=== PATIENT | female | born 1995 | race Hispanic/Latino ===

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

== ENCOUNTER 2017-05-28 07:36 | Emergency (ER) | payer MEDICAID, OTHER, SELFPAY ==
[~2017-05-28] VITALS: Ht 157.5 cm; Wt 74.2 kg
[~2017-05-28 07:36] MED LIST changes: -ACYC1CAP8 PO; +ACYC200C8 PO; +CLIN150C14 PO; -CLIN1CAP5 PO; -COLA100C3 PO; +COLA100C5 PO; +IBUP-1022 PO; -IBUP600T26 PO; -MACR100C3 PO; +MACR100C43 PO; -PERC10TA17 PO; +PERC10TA26 PO; +PREN200C PO; -PREN200C2 PO; -VALA500T PO; +VALA500T2 PO
[2017-05-28] MEDS ORDERED: PERCOCET 5MG/325MG TAB PO ONE (08:15)
[2017-05-28 08:55] LABS: MUCUS, URINE RFX SMALL (NEGATIVE); SPECIFIC GRAVITY UR AUTO RFX 1.026 (1.002-1.035); SQUAM EPITHELIAL CELL UR AURFX 11 /HPF (0-6)
[2017-05-28] MEDS ORDERED: FLAG500T PO (09:51)
[2017-05-28] MEDS ORDERED: VALA1TAB2 PO (09:51)
[2017-05-28] MEDS ORDERED: DICL75TA PO (09:52)
[2017-05-28 10:30] VITALS: BP 118/61
== END 2017-05-28 10:31 | disposition home or self-care (01) ==
LOC: M ED 07:36
DX: A60.04 Herpesviral vulvovaginitis (principal); A60.03 Herpesviral cervicitis; N76.0 Acute vaginitis; Z72.0 Tobacco use; F12.10 Cannabis abuse, uncomplicated

== ENCOUNTER 2017-05-30 16:06 | Emergency (ER) | payer MEDICAID ==
[~2017-05-30] VITALS: Ht 157.5 cm; Wt 73.7 kg
[~2017-05-30 16:06] MED LIST changes: +DICL75TA PO; +FLAG500T PO; +VALA1TAB2 PO
[2017-05-30 16:07] VITALS: BP 123/78
[2017-05-30] MEDS ORDERED: PRENTAB16 PO (16:16)
== END 2017-05-30 16:37 | disposition left against medical advice (07) ==
LOC: M ED 16:06
DX: Z53.29 Procedure and treatment not carried out because of patient's decision for other reasons (principal)

== ENCOUNTER 2017-06-14 14:21 | Emergency (ER) | payer MEDICAID ==
[~2017-06-14] VITALS: Ht 157.5 cm; Wt 73.0 kg
[~2017-06-14 14:21] MED LIST changes: +PRENTAB16 PO
[2017-06-14 14:22] VITALS: BP 114/69
== END 2017-06-14 15:24 | disposition left against medical advice (07) ==
LOC: M ED 14:21
DX: Z53.21 Procedure and treatment not carried out due to patient leaving prior to being seen by health care provider (principal)

== ENCOUNTER 2017-07-10 16:17 | Emergency (ER) | payer MEDICAID ==
[2017-07-10] MEDS: METOCLOPRAMIDE 10 MG TAB PO (17:05)
[2017-07-10 17:42] LABS: HEMOGLOBIN 13.1 g/dl (12.0-16.0); MEAN CORPUSCULAR HEMOGLOBIN 31.4 pg (27.0-33.0); MEAN CORPUSCULAR HGB CONC 33.6 g/dl (32.0-36.5); MEAN CORPUSCULAR VOLUME 93.5 fl (80.0-96.0); PLATELET COUNT, AUTOMATED 248 10^3/uL (150-450); RED BLOOD COUNT 4.17 10^6/uL (4.00-5.40); RED CELL DISTRIBUTION WIDTH 12.1 % (11.5-14.5); WHITE BLOOD COUNT 7.2 10^3/uL (4.0-10.0)
[2017-07-10 17:49] LABS: KETONE, URINE AUTO RFX NEGATIVE (NEGATIVE); LEUKOCYTE ESTERASE UR AUTO RFX NEGATIVE (NEGATIVE); NITRITE, URINE AUTO RFX NEGATIVE (NEGATIVE); RBC, URINE AUTO RFX 2 /HPF (0-3); SPECIFIC GRAVITY UR AUTO RFX 1.015 (1.002-1.035); SQUAM EPITHELIAL CELL UR AURFX 5 /HPF (0-6); WBC, URINE AUTO RFX 1 /HPF (0-3)
[2017-07-10 18:06] LABS: ANION GAP 7 MEQ/L (8-16); BLOOD UREA NITROGEN 14 MG/DL (7-18); CALCIUM LEVEL 8.6 MG/DL (8.5-10.1); CARBON DIOXIDE LEVEL 26 MEQ/L (21-32); CHLORIDE LEVEL 107 MEQ/L (98-107); CREATININE FOR GFR 0.74 MG/DL (0.55-1.02); GLUCOSE, FASTING 89 MG/DL (70-100); HCG, SERUM QUANTITATIVE < 1.0 MIU/ML; POTASSIUM SERUM 3.7 MEQ/L (3.5-5.1); SODIUM LEVEL 140 MEQ/L (136-145)
== END 2017-07-10 18:40 | disposition home or self-care (01) ==
LOC: M ED 16:17
DX: R10.9 Unspecified abdominal pain (principal); F17.200 Nicotine dependence, unspecified, uncomplicated
CPT/HCPCS: 84702

== ENCOUNTER 2017-07-11 20:09 | Emergency (ER) | payer MEDICAID ==
[2017-07-11 21:04] LABS: CONTROL LINE HCG INT CTR LINE PRESENT; HCG, SERUM QUALITATIVE NEGATIVE (NEGATIVE)
[2017-07-11 21:08] LABS: AMPHETAMINES LEVEL URINE NEGATIVE (NEGATIVE); BARBITURATES URINE NEGATIVE (NEGATIVE); BENZODIAZEPINES URINE NEGATIVE (NEGATIVE); CANNABINOIDS URINE NEGATIVE (NEGATIVE); COCAINE METABOLITE URINE NEGATIVE (NEGATIVE); HEMOGLOBIN 13.4 g/dl (12.0-16.0); MEAN CORPUSCULAR HEMOGLOBIN 31.2 pg (27.0-33.0); MEAN CORPUSCULAR HGB CONC 33.5 g/dl (32.0-36.5); METHADONE URINE NEGATIVE (NEGATIVE); OPIATES URINE NEGATIVE (NEGATIVE); PHENCYCLIDINE URINE NEGATIVE (NEGATIVE); PLATELET COUNT, AUTOMATED 283 10^3/uL (150-450); RED CELL DISTRIBUTION WIDTH 12.1 % (11.5-14.5); WHITE BLOOD COUNT 11.8 10^3/uL (4.0-10.0)
[2017-07-11 21:20] LABS: ALBUMIN 4.1 GM/DL (3.2-5.2); ALBUMIN/GLOBULIN RATIO 1.37 (1.00-1.93); ALKALINE PHOSPHATASE 74 U/L (45-117); ALT/SGPT 20 U/L (12-78); ANION GAP 6 MEQ/L (8-16); AST/SGOT 12 U/L (7-37); BILIRUBIN,DIRECT 0.2 MG/DL (0.0-0.2); BILIRUBIN,TOTAL 0.8 MG/DL (0.2-1.0); BLOOD UREA NITROGEN 13 MG/DL (7-18); CALCIUM LEVEL 8.4 MG/DL (8.5-10.1); CARBON DIOXIDE LEVEL 26 MEQ/L (21-32); CHLORIDE LEVEL 112 MEQ/L (98-107); CREATININE FOR GFR 0.67 MG/DL (0.55-1.02); ETHYL ALCOHOL (ETHANOL) < 0.003 % (0.000-0.010); GLUCOSE, FASTING 92 MG/DL (70-100); POTASSIUM SERUM 3.9 MEQ/L (3.5-5.1); SALICYLATE LEVEL < 1.7 MG/DL (5.0-30.0); SODIUM LEVEL 144 MEQ/L (136-145); THYROID STIMULATING HORMONE < 0.005 uIU/ML (0.463-3.98); TOTAL PROTEIN 7.1 GM/DL (6.4-8.2)
[2017-07-11 21:21] LABS: ACETAMINOPHEN LEVEL < 2.0 UG/ML (10.0-30.0)
[2017-07-11 22:18] LABS: FREE T3 5.6 PG/ML (2.9-4.5)
[2017-07-12 10:46] LABS: THYROGLOBULIN ANTIBODY < 15.0 U/ML (<60.0)
== END 2017-07-11 23:10 | disposition home or self-care (01) ==
LOC: M ED 20:09
DX: F43.20 Adjustment disorder, unspecified (principal); E05.90 Thyrotoxicosis, unspecified without thyrotoxic crisis or storm; F90.9 Attention-deficit hyperactivity disorder, unspecified type; F31.9 Bipolar disorder, unspecified; F19.10 Other psychoactive substance abuse, uncomplicated; L73.2 Hidradenitis suppurativa; Z91.030 Bee allergy status; Z91.048 Other nonmedicinal substance allergy status; F17.210 Nicotine dependence, cigarettes, uncomplicated
CPT/HCPCS: G0480

== ENCOUNTER 2017-07-14 06:47 | Emergency (ER) | payer MEDICAID ==
[2017-07-14] MEDS: ACETAMINOPHEN 325 MG TAB PO (08:04)
== END 2017-07-14 08:05 | disposition home or self-care (01) ==
LOC: M ED 06:47
DX: J02.9 Acute pharyngitis, unspecified (principal); Z87.891 Personal history of nicotine dependence
CPT/HCPCS: 87880

== ENCOUNTER 2017-07-14 18:30 | Emergency (ER) | payer MEDICAID | END 2017-07-14 19:23 | disposition left against medical advice (07) | LOC: M ED 18:30 | DX: Z53.29 Procedure and treatment not carried out because of patient's decision for other reasons (principal) ==

== ENCOUNTER → 2017-08-01 | Outpatient (CLI) | payer MEDICAID | LOC: M OUTALCOH 12:09 | DX: F11.20 Opioid dependence, uncomplicated (principal); F15.20 Other stimulant dependence, uncomplicated ==

== ENCOUNTER 2017-08-05 19:17 | Emergency (ER) | payer MEDICAID | END 2017-08-05 20:15 | disposition left against medical advice (07) | LOC: M ED 19:17 | DX: N93.9 Abnormal uterine and vaginal bleeding, unspecified (principal); Z91.030 Bee allergy status; Z91.048 Other nonmedicinal substance allergy status | CPT/HCPCS: 99284 ==

== ENCOUNTER 2017-08-13 03:27 | Emergency (ER) | payer MEDICAID ==
[2017-08-13 06:12] LABS: ALBUMIN 3.7 GM/DL (3.2-5.2); ALBUMIN/GLOBULIN RATIO 1.19 (1.00-1.93); ALKALINE PHOSPHATASE 92 U/L (45-117); ALT/SGPT 20 U/L (12-78); ANION GAP 7 MEQ/L (8-16); AST/SGOT 12 U/L (7-37); BILIRUBIN,DIRECT 0.2 MG/DL (0.0-0.2); BILIRUBIN,TOTAL 0.6 MG/DL (0.2-1.0); BLOOD UREA NITROGEN 12 MG/DL (7-18); CALCIUM LEVEL 8.3 MG/DL (8.5-10.1); CARBON DIOXIDE LEVEL 27 MEQ/L (21-32); CHLORIDE LEVEL 109 MEQ/L (98-107); GLUCOSE, FASTING 115 MG/DL (70-100); POTASSIUM SERUM 3.6 MEQ/L (3.5-5.1); SALICYLATE LEVEL < 1.7 MG/DL (5.0-30.0); SODIUM LEVEL 143 MEQ/L (136-145); THYROID STIMULATING HORMONE < 0.005 uIU/ML (0.463-3.98); TOTAL PROTEIN 6.8 GM/DL (6.4-8.2)
[2017-08-13 06:13] LABS: ACETAMINOPHEN LEVEL < 2.0 UG/ML (10.0-30.0); ETHYL ALCOHOL (ETHANOL) < 0.003 % (0.000-0.010)
[2017-08-13] MEDS ORDERED: AUGMENTIN 875 MG TAB As Ordered (06:13)
[2017-08-13 06:14] LABS: AMPHETAMINES LEVEL URINE POSITIVE (NEGATIVE); BARBITURATES URINE NEGATIVE (NEGATIVE); BENZODIAZEPINES URINE NEGATIVE (NEGATIVE); CANNABINOIDS URINE POSITIVE (NEGATIVE); COCAINE METABOLITE URINE NEGATIVE (NEGATIVE); METHADONE URINE NEGATIVE (NEGATIVE); OPIATES URINE NEGATIVE (NEGATIVE); PHENCYCLIDINE URINE NEGATIVE (NEGATIVE)
[2017-08-13 06:16] LABS: HEMATOCRIT 40.4 % (36.0-47.0); HEMOGLOBIN 13.7 g/dl (12.0-16.0); MEAN CORPUSCULAR HEMOGLOBIN 30.2 pg (27.0-33.0); MEAN CORPUSCULAR HGB CONC 33.9 g/dl (32.0-36.5); PLATELET COUNT, AUTOMATED 304 10^3/uL (150-450); RED BLOOD COUNT 4.54 10^6/uL (4.00-5.40); RED CELL DISTRIBUTION WIDTH 11.9 % (11.5-14.5); WHITE BLOOD COUNT 6.1 10^3/uL (4.0-10.0)
[2017-08-13 06:32] LABS: CONTROL LINE HCG INT CTR LINE PRESENT; HCG, SERUM QUALITATIVE NEGATIVE (NEGATIVE)
== END 2017-08-13 07:59 | disposition home or self-care (01) ==
LOC: M ED 03:27
DX: Z04.6 Encounter for general psychiatric examination, requested by authority (principal); F10.929 Alcohol use, unspecified with intoxication, unspecified; S60.221A Contusion of right hand, initial encounter; X58.XXXA Exposure to other specified factors, initial encounter; Y92.89 Other specified places as the place of occurrence of the external cause; L02.413 Cutaneous abscess of right upper limb; F11.90 Opioid use, unspecified, uncomplicated; F19.10 Other psychoactive substance abuse, uncomplicated
CPT/HCPCS: 73130

== ENCOUNTER 2017-08-14 12:14 | Emergency (ER) | payer MEDICAID ==
[2017-08-14 13:20] LABS: BASO % 0.6 % (0.0-1.0); EOS # 0.1 10^3/uL (0.0-0.50); EOS % 2.4 % (0.0-3.0); HEMATOCRIT 41.7 % (36.0-47.0); HEMOGLOBIN 13.7 g/dl (12.0-16.0); IMMATURE GRANULOCYTE % 0.2 % (0-3.0); LYMPH # 2.1 10^3/uL (1.5-6.5); LYMPH % 41.4 % (24.0-44.0); MEAN CORPUSCULAR HGB CONC 32.9 g/dl (32.0-36.5); MEAN CORPUSCULAR VOLUME 91.2 fl (80.0-96.0); MONO # 0.4 10^3/uL (0.0-0.8); MONO % 7.7 % (0.0-5.0); NEUTROPHILS # 2.4 10^3/uL (1.8-7.7); NEUTROPHILS % 47.7 % (36.0-66.0); PLATELET COUNT, AUTOMATED 311 10^3/uL (150-450); RED BLOOD COUNT 4.57 10^6/uL (4.00-5.40); WHITE BLOOD COUNT 5.1 10^3/uL (4.0-10.0)
[2017-08-14 13:30] LABS: CONTROL LINE HCG INT CTR LINE PRESENT; HCG, SERUM QUALITATIVE NEGATIVE (NEGATIVE)
[2017-08-14 13:35] LABS: ALBUMIN 3.7 GM/DL (3.2-5.2); ALBUMIN/GLOBULIN RATIO 1.16 (1.00-1.93); ALKALINE PHOSPHATASE 83 U/L (45-117); ALT/SGPT 25 U/L (12-78); ANION GAP 5 MEQ/L (8-16); AST/SGOT 18 U/L (7-37); BILIRUBIN,TOTAL 0.7 MG/DL (0.2-1.0); BLOOD UREA NITROGEN 7 MG/DL (7-18); C REACTIVE PROTEIN QUANTITATIV < 0.30 MG/DL (0.00-0.30); CALCIUM LEVEL 8.6 MG/DL (8.5-10.1); CARBON DIOXIDE LEVEL 28 MEQ/L (21-32); CHLORIDE LEVEL 110 MEQ/L (98-107); CREATININE FOR GFR 0.57 MG/DL (0.55-1.30); GLUCOSE, FASTING 80 MG/DL (70-100); POTASSIUM SERUM 3.8 MEQ/L (3.5-5.1); SODIUM LEVEL 143 MEQ/L (136-145); TOTAL PROTEIN 6.9 GM/DL (6.4-8.2)
[2017-08-14 14:03] LABS: ERYTHROCYTE SEDIMENTATION RATE 10 mm/hr (0-20)
== END 2017-08-14 14:43 | disposition home or self-care (01) ==
LOC: M ED 12:14
DX: L03.90 Cellulitis, unspecified (principal); J45.909 Unspecified asthma, uncomplicated; Z79.899 Other long term (current) drug therapy; Z91.030 Bee allergy status; Z91.048 Other nonmedicinal substance allergy status
CPT/HCPCS: 76882

== ENCOUNTER 2017-08-23 00:48 | Emergency (ER) | payer MEDICAID ==
[2017-08-23] MEDS: predniSONE 20 MG TAB PO (02:39)
== END 2017-08-23 03:26 | disposition home or self-care (01) ==
LOC: M ED 00:48
DX: L27.0 Generalized skin eruption due to drugs and medicaments taken internally (principal); T36.8X5A Adverse effect of other systemic antibiotics, initial encounter; F17.200 Nicotine dependence, unspecified, uncomplicated; F12.10 Cannabis abuse, uncomplicated; F11.10 Opioid abuse, uncomplicated; Z91.048 Other nonmedicinal substance allergy status; Z91.030 Bee allergy status; Z79.899 Other long term (current) drug therapy
CPT/HCPCS: 99284

== ENCOUNTER 2017-08-23 13:15 | Emergency (ER) | payer MEDICAID ==
[2017-08-23] MEDS ORDERED: methylPREDNISolone INJ 40 MG/1 ML VIAL (J2920) As Ordered (16:07)
[2017-08-23] MEDS: methylPREDNISolone INJ 40 MG/1 ML VIAL (J2920) IV (16:15)
[2017-08-23] MEDS: FAMOTIDINE 20 MG TAB PO (16:15)
[2017-08-23] MEDS ORDERED: methylPREDNISolone INJ 125 MG/2 ML VIAL (J2930) IV (16:15)
== END 2017-08-23 16:39 | disposition home or self-care (01) ==
LOC: M ED 13:15
DX: R21 Rash and other nonspecific skin eruption (principal); T37.0X5A Adverse effect of sulfonamides, initial encounter; L03.90 Cellulitis, unspecified; J45.909 Unspecified asthma, uncomplicated; N73.9 Female pelvic inflammatory disease, unspecified; F17.210 Nicotine dependence, cigarettes, uncomplicated; Z79.899 Other long term (current) drug therapy; Z88.1 Allergy status to other antibiotic agents; Z88.2 Allergy status to sulfonamides; Z91.048 Other nonmedicinal substance allergy status; Z91.030 Bee allergy status; Z98.890 Other specified postprocedural states
CPT/HCPCS: J2920

== ENCOUNTER 2017-08-28 16:44 | Emergency (ER) | payer MEDICAID | END 2017-08-28 17:59 | disposition left against medical advice (07) | LOC: M ED 16:44 | DX: T76.11XA Adult physical abuse, suspected, initial encounter (principal); Y92.099 Unspecified place in other non-institutional residence as the place of occurrence of the external cause; Y93.9 Activity, unspecified; R56.9 Unspecified convulsions; Z87.820 Personal history of traumatic brain injury; Z86.711 Personal history of pulmonary embolism; Z87.440 Personal history of urinary (tract) infections; F41.9 Anxiety disorder, unspecified; F32.9 Major depressive disorder, single episode, unspecified; F43.10 Post-traumatic stress disorder, unspecified; F19.10 Other psychoactive substance abuse, uncomplicated; Z79.899 Other long term (current) drug therapy; Z91.030 Bee allergy status; Z88.2 Allergy status to sulfonamides; Z91.89 Other specified personal risk factors, not elsewhere classified; Z53.21 Procedure and treatment not carried out due to patient leaving prior to being seen by health care provider | CPT/HCPCS: 99284 ==

== ENCOUNTER 2017-09-04 21:22 | Inpatient (IN) | payer MEDICAID ==
[2017-09-04] MEDS: NS 1,000 ML IV (21:45)
[2017-09-04] MEDS ORDERED: PROPOFOL 1,000 MG/100 ML VIAL As Ordered (21:49)
[2017-09-04] MEDS: PROPOFOL 200 MG/20 ML VIAL IV (22:02)
[2017-09-04] MEDS: SUCCINYLCHOLINE INJ 200 MG/10 ML VIAL (J0330) IV (22:02)
[2017-09-04] MEDS: PROPOFOL 1,000 MG in APPROPRIATE DILUENT 1 EA IV (22:10)
[2017-09-04] MEDS ORDERED: MIDAZOLAM INJ 5 MG/ML VIAL (J2250) As Ordered (22:11)
[2017-09-04] MEDS: MIDAZOLAM INJ 5 MG/ML VIAL (J2250) IV (22:23)
[2017-09-04] MEDS: MIDAZOLAM INJ 2 MG/2 ML VIAL (J2250) IV (22:30)
[2017-09-04] MEDS: CHARCOAL ACTIVATED LIQUID 25 GM/120 ML BTL PO (22:45)
[2017-09-04] MEDS: MIDAZOLAM HCL 100 MG in D5W 80 ML IV (23:00)
[2017-09-04 23:09] LABS: AMPHETAMINES LEVEL URINE POSITIVE (NEGATIVE); BARBITURATES URINE NEGATIVE (NEGATIVE); BENZODIAZEPINES URINE POSITIVE (NEGATIVE); CANNABINOIDS URINE POSITIVE (NEGATIVE); COCAINE METABOLITE URINE NEGATIVE (NEGATIVE); METHADONE URINE NEGATIVE (NEGATIVE); OPIATES URINE NEGATIVE (NEGATIVE); PHENCYCLIDINE URINE NEGATIVE (NEGATIVE)
[2017-09-04 23:13] LABS: BASO % 0.5 % (0.0-1.0); EOS % 0.5 % (0.0-3.0); HEMATOCRIT 44.8 % (36.0-47.0); HEMOGLOBIN 13.9 g/dl (12.0-16.0); IMMATURE GRANULOCYTE % 0.3 % (0-3.0); LYMPH # 1.2 10^3/uL (1.5-6.5); LYMPH % 15.6 % (24.0-44.0); MEAN CORPUSCULAR HEMOGLOBIN 29.9 pg (27.0-33.0); MEAN CORPUSCULAR VOLUME 96.3 fl (80.0-96.0); MONO # 0.5 10^3/uL (0.0-0.8); MONO % 6.6 % (0.0-5.0); NEUTROPHILS # 5.7 10^3/uL (1.8-7.7); NEUTROPHILS % 76.5 % (36.0-66.0); PLATELET COUNT, AUTOMATED 251 10^3/uL (150-450); RED BLOOD COUNT 4.65 10^6/uL (4.00-5.40); RED CELL DISTRIBUTION WIDTH 12.5 % (11.5-14.5); WHITE BLOOD COUNT 7.4 10^3/uL (4.0-10.0)
[2017-09-04 23:33] LABS: ABG BASE EXCESS -5.2 (-2.0-2.0); ABG HCO3 19.7 MEQ/L (22.0-26.0); ABG PARTIAL PRESSURE CO2 36.5 mmHg (35.0-45.0); ABG PARTIAL PRESSURE O2 159.2 mmHg (75.0-100.0); ABG STANDARD HCO3 20.2 MEQ/L (22.0-26.0); ABG TOTAL CO2 20.8 MEQ/L (22.0-29.0)
[2017-09-04 23:38] LABS: ALBUMIN 3.5 GM/DL (3.2-5.2); ALBUMIN/GLOBULIN RATIO 1.09 (1.00-1.93); ALKALINE PHOSPHATASE 75 U/L (45-117); ALT/SGPT 18 U/L (12-78); ANION GAP 14 MEQ/L (8-16); AST/SGOT 21 U/L (7-37); BILIRUBIN,DIRECT 0.2 MG/DL (0.0-0.2); BILIRUBIN,TOTAL 1.3 MG/DL (0.2-1.0); BLOOD UREA NITROGEN 7 MG/DL (7-18); CALCIUM LEVEL 8.1 MG/DL (8.5-10.1); CARBON DIOXIDE LEVEL 17 MEQ/L (21-32); CHLORIDE LEVEL 111 MEQ/L (98-107); CPK CREATINE PHOSPHOKINASE 162 U/L (26-192); CREATININE FOR GFR 0.55 MG/DL (0.55-1.30); ETHYL ALCOHOL (ETHANOL) < 0.003 % (0.000-0.010); GLUCOSE, FASTING 95 MG/DL (70-100); MB/CK RELATIVE INDEX 1.23 (< OR =4); POTASSIUM SERUM 3.6 MEQ/L (3.5-5.1); SODIUM LEVEL 142 MEQ/L (136-145); TOTAL PROTEIN 6.7 GM/DL (6.4-8.2); TROPONIN I < 0.02 NG/ML (< 0.10)
[2017-09-05] MEDS ORDERED: REFRIGERATOR IV KEYS XX ×2 (02:00→10:30)
[2017-09-05] MEDS: KCL 20MEQ IN D5/0.45NS 1000ML 1,000 ML IV ×3 (02:09→14:00)
[2017-09-05] MEDS: MIDAZOLAM HCL 100 MG in D5W 80 ML IV ×2 (02:58→06:53)
[2017-09-05] MEDS: LevoFLOXacin IV 500 MG in APPROPRIATE DILUENT 1 EA IV (03:19)
[2017-09-05] MEDS: MIDAZOLAM INJ 2 MG/2 ML VIAL (J2250) IV ×5 (03:21→16:00)
[2017-09-05] MEDS: IPRATROPIUM 0.5MG/ALBUTEROL 2.5MG INH SOL UD 3ML (DUONEB)(J7620) NEB ×5 (03:24→20:02)
[2017-09-05] MEDS: HEPARIN SOD (PORCINE) 5000 UNITS/ML VIAL SC ×3 (05:27→21:12)
[2017-09-05 05:28] LABS: BASO % 0.2 % (0.0-1.0); EOS # 0.1 10^3/uL (0.0-0.50); EOS % 0.6 % (0.0-3.0); HEMATOCRIT 38.5 % (36.0-47.0); IMMATURE GRANULOCYTE % 0.4 % (0-3.0); LYMPH # 1.5 10^3/uL (1.5-6.5); LYMPH % 10.5 % (24.0-44.0); MEAN CORPUSCULAR HEMOGLOBIN 30.5 pg (27.0-33.0); MEAN CORPUSCULAR HGB CONC 33.8 g/dl (32.0-36.5); MEAN CORPUSCULAR VOLUME 90.4 fl (80.0-96.0); MONO % 7.3 % (0.0-5.0); NEUTROPHILS # 11.4 10^3/uL (1.8-7.7); PLATELET COUNT, AUTOMATED 281 10^3/uL (150-450); RED BLOOD COUNT 4.26 10^6/uL (4.00-5.40); RED CELL DISTRIBUTION WIDTH 12.6 % (11.5-14.5); WHITE BLOOD COUNT 14.1 10^3/uL (4.0-10.0)
[2017-09-05 05:44] LABS: ALBUMIN 3.3 GM/DL (3.2-5.2); ALBUMIN/GLOBULIN RATIO 0.97 (1.00-1.93); ALKALINE PHOSPHATASE 72 U/L (45-117); ALT/SGPT 15 U/L (12-78); ANION GAP 11 MEQ/L (8-16); AST/SGOT 13 U/L (7-37); BILIRUBIN,TOTAL 1.2 MG/DL (0.2-1.0); BLOOD UREA NITROGEN 5 MG/DL (7-18); CALCIUM LEVEL 7.7 MG/DL (8.5-10.1); CARBON DIOXIDE LEVEL 22 MEQ/L (21-32); CHLORIDE LEVEL 109 MEQ/L (98-107); CHOLESTEROL LEVEL 112 MG/DL (< 200); CPK CREATINE PHOSPHOKINASE 186 U/L (26-192); CREATININE FOR GFR 0.64 MG/DL (0.55-1.30); GLUCOSE, FASTING 147 MG/DL (70-100); LDH LACTATE DEHYDROGENASE 157 U/L (84-246); PHOSPHORUS LEVEL 2.7 MG/DL (2.5-4.9); SODIUM LEVEL 142 MEQ/L (136-145); TOTAL PROTEIN 6.7 GM/DL (6.4-8.2); TRIGLYCERIDES LEVEL 76 MG/DL (<150)
[2017-09-05] MEDS ORDERED: SUCCINYLCHOLINE 100 MG/5 ML SYRINGE (J0330) (05:56)
[2017-09-05] MEDS ORDERED: PROPOFOL 200 MG/20 ML VIAL (05:56)
[2017-09-05] MEDS: KCL 10MEQ/100ML SWI (KRUN) 10 MEQ in APPROPRIATE DILUENT 1 EA IV ×4 (07:44→11:12)
[2017-09-05 08:43] LABS: ABG BASE EXCESS -5.5 (-2.0-2.0); ABG HCO3 18.1 MEQ/L (22.0-26.0); ABG O2 SATURATION 98.4 % (95.0-99.0); ABG PARTIAL PRESSURE CO2 29.9 mmHg (35.0-45.0); ABG PARTIAL PRESSURE O2 113.4 mmHg (75.0-100.0); ABG pH (ARTERIAL) 7.399 UNITS (7.350-7.450)
[2017-09-05] MEDS: NS 1,000 ML IV ×2 (08:45→11:30)
[2017-09-05] MEDS: PANTOPRAZOLE 40MG INJ (PROTONIX) (C9113) IV (10:22)
[2017-09-05] MEDS: MIDAZOLAM HCL 250 MG in D5W 200 ML IV ×2 (10:28→18:13)
[2017-09-05] MEDS: MORPHINE 4 MG/ML 1ML VIAL (J2270) IV ×3 (13:10→22:20)
[2017-09-05] MEDS: CHLORHEXIDINE ORAL RINSE 0.12%/15ML 120ML BOTTLE MT ×2 (13:11→21:12)
[2017-09-05 14:39] LABS: ANION GAP 12 MEQ/L (8-16); BLOOD UREA NITROGEN 4 MG/DL (7-18); CALCIUM LEVEL 7.5 MG/DL (8.5-10.1); CARBON DIOXIDE LEVEL 18 MEQ/L (21-32); CHLORIDE LEVEL 111 MEQ/L (98-107); CREATININE FOR GFR 0.54 MG/DL (0.55-1.30); GLUCOSE, FASTING 130 MG/DL (70-100); POTASSIUM SERUM 4.3 MEQ/L (3.5-5.1); SODIUM LEVEL 141 MEQ/L (136-145)
[2017-09-05] MEDS ORDERED: ACETAMINOPHEN 325 MG/10.15 ML UDC GT (16:15)
[2017-09-05 16:20] LABS: ABG BASE EXCESS -6.5 (-2.0-2.0); ABG HCO3 16.7 MEQ/L (22.0-26.0); ABG O2 SATURATION 98.3 % (95.0-99.0); ABG PARTIAL PRESSURE CO2 26.7 mmHg (35.0-45.0); ABG PARTIAL PRESSURE O2 114.6 mmHg (75.0-100.0); ABG STANDARD HCO3 19.2 MEQ/L (22.0-26.0); ABG TOTAL CO2 17.5 MEQ/L (22.0-29.0); ABG pH (ARTERIAL) 7.413 UNITS (7.350-7.450)
[2017-09-05] MEDS: KCL 20MEQ IN D5W 1000ML 1,000 ML IV (17:53)
[2017-09-06] MEDS: KCL 20MEQ IN D5W 1000ML 1,000 ML IV ×4 (00:25→20:34)
[2017-09-06] MEDS: LevoFLOXacin IV 500 MG in APPROPRIATE DILUENT 1 EA IV (00:26)
[2017-09-06] MEDS: IPRATROPIUM 0.5MG/ALBUTEROL 2.5MG INH SOL UD 3ML (DUONEB)(J7620) NEB ×7 (01:02→23:44)
[2017-09-06] MEDS: MORPHINE 4 MG/ML 1ML VIAL (J2270) IV ×2 (01:55→05:51)
[2017-09-06] MEDS: MIDAZOLAM HCL 250 MG in D5W 200 ML IV (01:58)
[2017-09-06] MEDS: HEPARIN SOD (PORCINE) 5000 UNITS/ML VIAL SC ×3 (05:09→22:16)
[2017-09-06 05:18] LABS: HEMATOCRIT 37.4 % (36.0-47.0); HEMOGLOBIN 12.5 g/dl (12.0-16.0); MEAN CORPUSCULAR HEMOGLOBIN 30.6 pg (27.0-33.0); MEAN CORPUSCULAR HGB CONC 33.4 g/dl (32.0-36.5); MEAN CORPUSCULAR VOLUME 91.7 fl (80.0-96.0); PLATELET COUNT, AUTOMATED 246 10^3/uL (150-450); RED BLOOD COUNT 4.08 10^6/uL (4.00-5.40); RED CELL DISTRIBUTION WIDTH 13.1 % (11.5-14.5); WHITE BLOOD COUNT 8.6 10^3/uL (4.0-10.0)
[2017-09-06 05:19] LABS: BASO % 0.1 % (0.0-1.0); EOS % 0.5 % (0.0-3.0); IMMATURE GRANULOCYTE % 0.3 % (0-3.0); LYMPH # 2.1 10^3/uL (1.5-6.5); LYMPH % 23.8 % (24.0-44.0); MONO # 0.7 10^3/uL (0.0-0.8); MONO % 7.9 % (0.0-5.0); NEUTROPHILS # 5.8 10^3/uL (1.8-7.7); NEUTROPHILS % 67.4 % (36.0-66.0)
[2017-09-06 05:24] LABS: ALBUMIN 2.9 GM/DL (3.2-5.2); ALBUMIN/GLOBULIN RATIO 0.81 (1.00-1.93); ALKALINE PHOSPHATASE 70 U/L (45-117); ALT/SGPT 16 U/L (12-78); ANION GAP 7 MEQ/L (8-16); AST/SGOT 11 U/L (7-37); BILIRUBIN,TOTAL 1.3 MG/DL (0.2-1.0); BLOOD UREA NITROGEN 2 MG/DL (7-18); CALCIUM LEVEL 8.1 MG/DL (8.5-10.1); CARBON DIOXIDE LEVEL 22 MEQ/L (21-32); CHLORIDE LEVEL 110 MEQ/L (98-107); CHOLESTEROL LEVEL 112 MG/DL (< 200); CPK CREATINE PHOSPHOKINASE 76 U/L (26-192); CREATININE FOR GFR 0.51 MG/DL (0.55-1.30); GLUCOSE, FASTING 126 MG/DL (70-100); LDH LACTATE DEHYDROGENASE 159 U/L (84-246); PHOSPHORUS LEVEL 2.4 MG/DL (2.5-4.9); POTASSIUM SERUM 4.1 MEQ/L (3.5-5.1); SODIUM LEVEL 139 MEQ/L (136-145); TOTAL PROTEIN 6.5 GM/DL (6.4-8.2); TRIGLYCERIDES LEVEL 105 MG/DL (<150)
[2017-09-06 06:01] LABS: ABG BASE EXCESS -3.4 (-2.0-2.0); ABG HCO3 18.8 MEQ/L (22.0-26.0); ABG O2 SATURATION 98.5 % (95.0-99.0); ABG PARTIAL PRESSURE CO2 26.1 mmHg (35.0-45.0); ABG PARTIAL PRESSURE O2 110.3 mmHg (75.0-100.0); ABG STANDARD HCO3 21.7 MEQ/L (22.0-26.0); ABG TOTAL CO2 19.6 MEQ/L (22.0-29.0); ABG pH (ARTERIAL) 7.475 UNITS (7.350-7.450)
[2017-09-06] MEDS: CHLORHEXIDINE ORAL RINSE 0.12%/15ML 120ML BOTTLE MT ×2 (08:00→20:34)
[2017-09-06] MEDS: PANTOPRAZOLE 40MG INJ (PROTONIX) (C9113) IV (08:37)
[2017-09-06 14:01] LABS: ABG BASE EXCESS 0.2 (-2.0-2.0); ABG HCO3 22.9 MEQ/L (22.0-26.0); ABG O2 SATURATION 97.6 % (95.0-99.0); ABG PARTIAL PRESSURE CO2 31.4 mmHg (35.0-45.0); ABG STANDARD HCO3 24.7 MEQ/L (22.0-26.0); ABG TOTAL CO2 23.9 MEQ/L (22.0-29.0); ABG pH (ARTERIAL) 7.481 UNITS (7.350-7.450)
[2017-09-06 16:30] LABS: CONTROL LINE HCG INT CTR LINE PRESENT; HCG, SERUM QUALITATIVE NEGATIVE (NEGATIVE)
[2017-09-07] MEDS: LevoFLOXacin IV 500 MG in APPROPRIATE DILUENT 1 EA IV ×2 (00:04→22:59)
[2017-09-07] MEDS: MORPHINE 4 MG/ML 1ML VIAL (J2270) IV (02:35)
[2017-09-07] MEDS: KCL 20MEQ IN D5W 1000ML 1,000 ML IV ×2 (03:10→09:00)
[2017-09-07] MEDS: IPRATROPIUM 0.5MG/ALBUTEROL 2.5MG INH SOL UD 3ML (DUONEB)(J7620) NEB ×2 (03:47→07:56)
[2017-09-07 04:55] LABS: BASO % 0.4 % (0.0-1.0); EOS # 0.2 10^3/uL (0.0-0.50); HEMOGLOBIN 12.9 g/dl (12.0-16.0); IMMATURE GRANULOCYTE % 0.2 % (0-3.0); LYMPH # 1.9 10^3/uL (1.5-6.5); LYMPH % 20.7 % (24.0-44.0); MEAN CORPUSCULAR HEMOGLOBIN 30.5 pg (27.0-33.0); MEAN CORPUSCULAR HGB CONC 33.1 g/dl (32.0-36.5); MEAN CORPUSCULAR VOLUME 92.2 fl (80.0-96.0); MONO # 0.7 10^3/uL (0.0-0.8); MONO % 7.6 % (0.0-5.0); NEUTROPHILS # 6.2 10^3/uL (1.8-7.7); NEUTROPHILS % 69.1 % (36.0-66.0); PLATELET COUNT, AUTOMATED 268 10^3/uL (150-450); RED BLOOD COUNT 4.23 10^6/uL (4.00-5.40); RED CELL DISTRIBUTION WIDTH 13.1 % (11.5-14.5); WHITE BLOOD COUNT 8.9 10^3/uL (4.0-10.0)
[2017-09-07 05:21] LABS: ALBUMIN/GLOBULIN RATIO 0.75 (1.00-1.93); ALKALINE PHOSPHATASE 75 U/L (45-117); ALT/SGPT 11 U/L (12-78); ANION GAP 8 MEQ/L (8-16); AST/SGOT 9 U/L (7-37); BILIRUBIN,TOTAL 1.2 MG/DL (0.2-1.0); BLOOD UREA NITROGEN 3 MG/DL (7-18); CALCIUM LEVEL 8.3 MG/DL (8.5-10.1); CARBON DIOXIDE LEVEL 23 MEQ/L (21-32); CHLORIDE LEVEL 108 MEQ/L (98-107); CHOLESTEROL LEVEL 123 MG/DL (< 200); CPK CREATINE PHOSPHOKINASE 133 U/L (26-192); CREATININE FOR GFR 0.57 MG/DL (0.55-1.30); GLUCOSE, FASTING 136 MG/DL (70-100); LDH LACTATE DEHYDROGENASE 152 U/L (84-246); PHOSPHORUS LEVEL 3.4 MG/DL (2.5-4.9); POTASSIUM SERUM 4.1 MEQ/L (3.5-5.1); SODIUM LEVEL 139 MEQ/L (136-145); TRIGLYCERIDES LEVEL 93 MG/DL (<150)
[2017-09-07] MEDS: HEPARIN SOD (PORCINE) 5000 UNITS/ML VIAL SC ×3 (05:57→21:16)
[2017-09-07 06:11] LABS: ABG BASE EXCESS -2.3 (-2.0-2.0); ABG HCO3 21.1 MEQ/L (22.0-26.0); ABG O2 SATURATION 98.2 % (95.0-99.0); ABG PARTIAL PRESSURE CO2 32.2 mmHg (35.0-45.0); ABG PARTIAL PRESSURE O2 108.7 mmHg (75.0-100.0); ABG STANDARD HCO3 22.6 MEQ/L (22.0-26.0); ABG TOTAL CO2 22.1 MEQ/L (22.0-29.0); ABG pH (ARTERIAL) 7.434 UNITS (7.350-7.450)
[2017-09-07] MEDS: PANTOPRAZOLE 40MG INJ (PROTONIX) (C9113) IV (09:00)
[2017-09-07] MEDS: ACETAMINOPHEN TAB 650MG DOSE (2X325MG) PO (23:20)
== END 2017-09-08 02:40 | disposition left against medical advice (07) | DRG 812 ==
LOC: M ED INP 09-05 01:11 → M ICU 09-05 01:41 → M ED 21:22
PROC: 0BH17EZ Insertion of Endotracheal Airway into Trachea, Via Natural or Artificial Opening (ICD-10-PCS; principal; 2017-09-05)
PROC: 5A1945Z Respiratory Ventilation, 24-96 Consecutive Hours (ICD-10-PCS; 2017-09-05)
DX: T50.904A Poisoning by unspecified drugs, medicaments and biological substances, undetermined, initial encounter (principal); J96.90 Respiratory failure, unspecified, unspecified whether with hypoxia or hypercapnia; E87.2 Acidosis; F41.9 Anxiety disorder, unspecified; F32.9 Major depressive disorder, single episode, unspecified; F11.20 Opioid dependence, uncomplicated

== ENCOUNTER 2017-09-15 01:15 | Emergency (ER) | payer MEDICAID | END 2017-09-15 02:29 | disposition home or self-care (01) | LOC: M ED 01:15 | DX: F43.0 Acute stress reaction (principal); Z91.5 Personal history of self-harm; Z88.1 Allergy status to other antibiotic agents; Z88.2 Allergy status to sulfonamides; Z91.048 Other nonmedicinal substance allergy status; Z91.030 Bee allergy status | CPT/HCPCS: 99284 ==

== ENCOUNTER 2017-10-16 01:12 | Emergency (ER) | payer MEDICAID ==
[2017-10-16 03:28] LABS: HEMATOCRIT 40.9 % (36.0-47.0); HEMOGLOBIN 14.2 g/dl (12.0-15.5); MEAN CORPUSCULAR HEMOGLOBIN 30.6 pg (27.0-33.0); MEAN CORPUSCULAR HGB CONC 34.7 g/dl (32.0-36.5); MEAN CORPUSCULAR VOLUME 88.1 fl (80.0-96.0); PLATELET COUNT, AUTOMATED 274 10^3/uL (150-450); RED BLOOD COUNT 4.64 10^6/uL (4.00-5.40); RED CELL DISTRIBUTION WIDTH 12.8 % (11.5-14.5); WHITE BLOOD COUNT 9.6 10^3/uL (4.0-10.0)
[2017-10-16 03:49] LABS: CONTROL LINE HCG INT CTR LINE PRESENT; HCG, SERUM QUALITATIVE NEGATIVE (NEGATIVE)
[2017-10-16 03:54] LABS: AMPHETAMINES LEVEL URINE POSITIVE (NEGATIVE); BARBITURATES URINE NEGATIVE (NEGATIVE); BENZODIAZEPINES URINE NEGATIVE (NEGATIVE); CANNABINOIDS URINE POSITIVE (NEGATIVE); COCAINE METABOLITE URINE NEGATIVE (NEGATIVE); METHADONE URINE NEGATIVE (NEGATIVE); OPIATES URINE NEGATIVE (NEGATIVE); PHENCYCLIDINE URINE NEGATIVE (NEGATIVE)
[2017-10-16 04:05] LABS: ALKALINE PHOSPHATASE 94 U/L (45-117); ALT/SGPT 16 U/L (12-78); ANION GAP 9 MEQ/L (8-16); AST/SGOT 14 U/L (7-37); BLOOD UREA NITROGEN 16 MG/DL (7-18); CALCIUM LEVEL 8.7 MG/DL (8.5-10.1); CARBON DIOXIDE LEVEL 23 MEQ/L (21-32); CHLORIDE LEVEL 108 MEQ/L (98-107); CREATININE FOR GFR 0.69 MG/DL (0.55-1.30); GLUCOSE, FASTING 98 MG/DL (70-100); POTASSIUM SERUM 3.7 MEQ/L (3.5-5.1); SODIUM LEVEL 140 MEQ/L (136-145)
[2017-10-16 04:06] LABS: ALBUMIN 3.8 GM/DL (3.2-5.2); BILIRUBIN,DIRECT 0.2 MG/DL (0.0-0.2); BILIRUBIN,TOTAL 0.7 MG/DL (0.2-1.0); SALICYLATE LEVEL < 1.7 MG/DL (5.0-30.0); TOTAL PROTEIN 7.6 GM/DL (6.4-8.2)
[2017-10-16 04:16] LABS: ACETAMINOPHEN LEVEL < 2.0 UG/ML (10.0-30.0); ETHYL ALCOHOL (ETHANOL) < 0.003 % (0.000-0.010)
== END 2017-10-16 09:31 | disposition home or self-care (01) ==
LOC: M ED 01:12
DX: F43.0 Acute stress reaction (principal); F31.9 Bipolar disorder, unspecified; Z91.5 Personal history of self-harm; Z79.899 Other long term (current) drug therapy; Z88.2 Allergy status to sulfonamides; Z91.048 Other nonmedicinal substance allergy status; Z91.030 Bee allergy status
CPT/HCPCS: G0480

== ENCOUNTER 2017-10-28 12:55 | Emergency (ER) | payer MEDICAID ==
[2017-10-28] MEDS ORDERED: NS 1,000 ML IV (13:15)
[2017-10-28 13:57] LABS: KETONE, URINE AUTO RFX NEGATIVE (NEGATIVE); LEUKOCYTE ESTERASE UR AUTO RFX NEGATIVE (NEGATIVE); RBC, URINE AUTO RFX 0 /HPF (0-3); SPECIFIC GRAVITY UR AUTO RFX 1.008 (1.002-1.035); SQUAM EPITHELIAL CELL UR AURFX 2 /HPF (0-6); WBC, URINE AUTO RFX 2 /HPF (0-3)
[2017-10-28 13:58] LABS: NITRITE, URINE AUTO RFX POSITIVE (NEGATIVE)
== END 2017-10-28 13:46 | disposition left against medical advice (07) ==
LOC: M ED 12:55
DX: R10.9 Unspecified abdominal pain (principal); Z53.21 Procedure and treatment not carried out due to patient leaving prior to being seen by health care provider; F31.9 Bipolar disorder, unspecified; Z87.440 Personal history of urinary (tract) infections; F17.200 Nicotine dependence, unspecified, uncomplicated; F41.9 Anxiety disorder, unspecified; M54.9 Dorsalgia, unspecified; Z79.899 Other long term (current) drug therapy; Z88.2 Allergy status to sulfonamides; Z91.030 Bee allergy status; Z91.89 Other specified personal risk factors, not elsewhere classified
CPT/HCPCS: 81001

== ENCOUNTER 2017-12-11 13:01 | Emergency (ER) | payer MEDICAID | END 2017-12-11 13:53 | disposition left against medical advice (07) | LOC: M ED 13:01 | DX: Z53.29 Procedure and treatment not carried out because of patient's decision for other reasons (principal) ==

== ENCOUNTER 2017-12-17 09:03 | Outpatient (CLI) | payer MEDICAID | END 2017-12-17 09:35 | disposition home or self-care (01) | LOC: M LDO 09:03 | DX: N93.9 Abnormal uterine and vaginal bleeding, unspecified (principal); R10.9 Unspecified abdominal pain ==

== ENCOUNTER 2017-12-21 22:50 | Emergency (ER) | payer MEDICAID | END 2017-12-22 00:26 | disposition left against medical advice (07) | LOC: M ED 22:50 | DX: Z53.21 Procedure and treatment not carried out due to patient leaving prior to being seen by health care provider (principal) ==

== ENCOUNTER 2018-03-02 23:09 | Emergency (ER) | payer MEDICAID ==
[2018-03-03] MEDS: NS 1,000 ML IV (00:24)
== END 2018-03-03 00:46 | disposition left against medical advice (07) ==
LOC: M ED 23:09
DX: S09.90XA Unspecified injury of head, initial encounter (principal); S19.9XXA Unspecified injury of neck, initial encounter; S89.91XA Unspecified injury of right lower leg, initial encounter; W10.8XXA Fall (on) (from) other stairs and steps, initial encounter; Y92.098 Other place in other non-institutional residence as the place of occurrence of the external cause; R42 Dizziness and giddiness; F32.9 Major depressive disorder, single episode, unspecified; F19.10 Other psychoactive substance abuse, uncomplicated; Z88.2 Allergy status to sulfonamides; Z91.030 Bee allergy status; Z91.048 Other nonmedicinal substance allergy status
CPT/HCPCS: 70450

== ENCOUNTER 2018-03-31 21:31 | Emergency (ER) | payer MEDICAID ==
[2018-03-31] MEDS: METOCLOPRAMIDE 10 MG TAB PO (21:59)
== END 2018-03-31 23:17 | disposition left against medical advice (07) ==
LOC: M ED 21:31
DX: S00.93XA Contusion of unspecified part of head, initial encounter (principal); W18.40XA Slipping, tripping and stumbling without falling, unspecified, initial encounter; Y92.019 Unspecified place in single-family (private) house as the place of occurrence of the external cause
CPT/HCPCS: 70450

== ENCOUNTER 2018-04-03 22:46 | Emergency (ER) | payer MEDICAID | END 2018-04-04 00:17 | disposition left against medical advice (07) | LOC: M ED 22:46 | DX: S29.001A Unspecified injury of muscle and tendon of front wall of thorax, initial encounter (principal); S89.91XA Unspecified injury of right lower leg, initial encounter; W01.0XXA Fall on same level from slipping, tripping and stumbling without subsequent striking against object, initial encounter; Y92.098 Other place in other non-institutional residence as the place of occurrence of the external cause; J45.909 Unspecified asthma, uncomplicated; F19.10 Other psychoactive substance abuse, uncomplicated; Z87.820 Personal history of traumatic brain injury; Z88.2 Allergy status to sulfonamides; Z91.048 Other nonmedicinal substance allergy status; Z91.030 Bee allergy status | CPT/HCPCS: 71101 ==

== ENCOUNTER 2018-04-11 11:12 | Emergency (ER) | payer MEDICAID | END 2018-04-11 12:30 | disposition left against medical advice (07) | LOC: M ED 11:12 | DX: O20.8 Other hemorrhage in early pregnancy (principal); Z87.59 Personal history of other complications of pregnancy, childbirth and the puerperium; Z3A.01 Less than 8 weeks gestation of pregnancy; Z53.21 Procedure and treatment not carried out due to patient leaving prior to being seen by health care provider ==

== ENCOUNTER 2018-04-21 02:05 | Emergency (ER) | payer MEDICAID | END 2018-04-21 04:34 | disposition left against medical advice (07) | LOC: M ED 02:05 | DX: Z53.29 Procedure and treatment not carried out because of patient's decision for other reasons (principal) ==

== ENCOUNTER 2018-04-29 18:57 | Emergency (ER) | payer MEDICAID ==
[2018-04-29 19:24] LABS: HEMATOCRIT 41.4 % (36.0-47.0); HEMOGLOBIN 14.5 g/dl (12.0-15.5); MEAN CORPUSCULAR HEMOGLOBIN 32.2 pg (27.0-33.0); PLATELET COUNT, AUTOMATED 270 10^3/uL (150-450); RED CELL DISTRIBUTION WIDTH 12.2 % (11.5-14.5)
[2018-04-29] MEDS: NS 1,000 ML IV ×2 (19:28→20:46)
[2018-04-29 19:36] LABS: CONTROL LINE HCG INT CTR LINE PRESENT; HCG, SERUM QUALITATIVE NEGATIVE (NEGATIVE)
[2018-04-29 19:37] LABS: VENOUS BASE EXCESS -3.4 (-2.0-2.0); VENOUS HCO3 19.7 MEQ/L (23.0-27.0); VENOUS PARTIAL PRESSURE CO2 30.4 mmHg (38.0-50.0); VENOUS PARTIAL PRESSURE O2 79.9 mmHg (30.0-50.0); VENOUS PH 7.429 UNITS (7.330-7.430); VENOUS STANDARD HCO3 21.6 MEQ/L; VENOUS TOTAL CO2 20.6 MEQ/L (24.0-28.0)
[2018-04-29 20:24] LABS: ACETAMINOPHEN LEVEL < 2.0 UG/ML (10.0-30.0); ALBUMIN 4.2 GM/DL (3.2-5.2); ALBUMIN/GLOBULIN RATIO 1.08 (1.00-1.93); ALKALINE PHOSPHATASE 80 U/L (45-117); ALT/SGPT 25 U/L (12-78); ANION GAP 11 MEQ/L (8-16); AST/SGOT 24 U/L (7-37); BILIRUBIN,DIRECT 0.3 MG/DL (0.0-0.2); BILIRUBIN,TOTAL 1.1 MG/DL (0.2-1.0); BLOOD UREA NITROGEN 7 MG/DL (7-18); CALCIUM LEVEL 8.9 MG/DL (8.5-10.1); CARBON DIOXIDE LEVEL 21 MEQ/L (21-32); CHLORIDE LEVEL 108 MEQ/L (98-107); CREATININE FOR GFR 0.77 MG/DL (0.55-1.30); ETHYL ALCOHOL (ETHANOL) < 0.003 % (0.000-0.010); GLOMERULAR FILTRATION RATE > 60.0 (>60); GLUCOSE, FASTING 102 MG/DL (70-100); POTASSIUM SERUM 3.1 MEQ/L (3.5-5.1); SALICYLATE LEVEL < 1.7 MG/DL (5.0-30.0); SODIUM LEVEL 140 MEQ/L (136-145); THYROID STIMULATING HORMONE 0.706 uIU/ML (0.358-3.740); TOTAL PROTEIN 8.1 GM/DL (6.4-8.2)
[2018-04-29 20:45] LABS: AMPHETAMINES LEVEL URINE POSITIVE (NEGATIVE); BARBITURATES URINE NEGATIVE (NEGATIVE); BENZODIAZEPINES URINE NEGATIVE (NEGATIVE); CANNABINOIDS URINE NEGATIVE (NEGATIVE); COCAINE METABOLITE URINE NEGATIVE (NEGATIVE); METHADONE URINE NEGATIVE (NEGATIVE); OPIATES URINE POSITIVE (NEGATIVE); PHENCYCLIDINE URINE NEGATIVE (NEGATIVE)
[2018-04-29] MEDS: POTASSIUM CHL PWD 20 MEQ PACKET PO (20:46)
== END 2018-04-29 21:46 | disposition home or self-care (01) ==
LOC: M ED 18:57
DX: T43.621A Poisoning by amphetamines, accidental (unintentional), initial encounter (principal); F19.10 Other psychoactive substance abuse, uncomplicated; I10 Essential (primary) hypertension; F33.9 Major depressive disorder, recurrent, unspecified; F43.10 Post-traumatic stress disorder, unspecified; R56.9 Unspecified convulsions; Z86.14 Personal history of Methicillin resistant Staphylococcus aureus infection; Z88.1 Allergy status to other antibiotic agents; Z88.2 Allergy status to sulfonamides; Z91.030 Bee allergy status; Z91.048 Other nonmedicinal substance allergy status
CPT/HCPCS: 80320

== ENCOUNTER 2018-05-05 10:34 | Emergency (ER) | payer MEDICAID ==
[2018-05-05] MEDS ORDERED: NS 1,000 ML IV (11:00)
== END 2018-05-05 11:23 | disposition left against medical advice (07) ==
LOC: M ED 10:34
DX: F19.10 Other psychoactive substance abuse, uncomplicated (principal); R94.31 Abnormal electrocardiogram [ECG] [EKG]; F33.9 Major depressive disorder, recurrent, unspecified; F41.9 Anxiety disorder, unspecified; Z91.030 Bee allergy status; Z88.1 Allergy status to other antibiotic agents; Z88.2 Allergy status to sulfonamides; Z91.048 Other nonmedicinal substance allergy status
CPT/HCPCS: 93005

== ENCOUNTER 2018-05-12 23:05 | Emergency (ER) | payer MEDICAID | END 2018-05-12 23:55 | disposition left against medical advice (07) | LOC: M ED 23:05 | DX: Z53.29 Procedure and treatment not carried out because of patient's decision for other reasons (principal) ==

== ENCOUNTER 2018-05-13 20:38 | Emergency (ER) | payer MEDICAID | END 2018-05-13 21:08 | disposition left against medical advice (07) | LOC: M ED 20:38 | DX: Z53.29 Procedure and treatment not carried out because of patient's decision for other reasons (principal) ==

== ENCOUNTER 2018-05-29 01:27 | Emergency (ER) | payer MEDICAID | END 2018-05-29 01:45 | disposition left against medical advice (07) | LOC: M ED 01:27 | DX: Z53.21 Procedure and treatment not carried out due to patient leaving prior to being seen by health care provider (principal); R10.9 Unspecified abdominal pain ==

== ENCOUNTER 2018-06-10 22:55 | Inpatient (IN) | payer MEDICAID ==
[2018-06-10 23:35] LABS: HEMATOCRIT 37.6 % (36.0-47.0); MEAN CORPUSCULAR HEMOGLOBIN 31.3 pg (27.0-33.0); MEAN CORPUSCULAR HGB CONC 34.6 g/dl (32.0-36.5); MEAN CORPUSCULAR VOLUME 90.6 fl (80.0-96.0); PLATELET COUNT, AUTOMATED 267 10^3/uL (150-450); RED BLOOD COUNT 4.15 10^6/uL (4.00-5.40); RED CELL DISTRIBUTION WIDTH 12.3 % (11.5-14.5); WHITE BLOOD COUNT 5.5 10^3/uL (4.0-10.0)
[2018-06-10 23:55] LABS: CONTROL LINE HCG INT CTR LINE PRESENT; HCG, SERUM QUALITATIVE NEGATIVE (NEGATIVE)
[2018-06-11 00:16] LABS: AMPHETAMINES LEVEL URINE POSITIVE (NEGATIVE); BARBITURATES URINE NEGATIVE (NEGATIVE); BENZODIAZEPINES URINE NEGATIVE (NEGATIVE); CANNABINOIDS URINE NEGATIVE (NEGATIVE); COCAINE METABOLITE URINE NEGATIVE (NEGATIVE); METHADONE URINE NEGATIVE (NEGATIVE); OPIATES URINE NEGATIVE (NEGATIVE); PHENCYCLIDINE URINE NEGATIVE (NEGATIVE)
[2018-06-11 00:19] LABS: ACETAMINOPHEN LEVEL < 2.0 UG/ML (10.0-30.0); ALBUMIN 3.4 GM/DL (3.2-5.2); ALKALINE PHOSPHATASE 93 U/L (45-117); ALT/SGPT 17 U/L (12-78); ANION GAP 6 MEQ/L (8-16); AST/SGOT 11 U/L (7-37); BILIRUBIN,DIRECT 0.2 MG/DL (0.0-0.2); BILIRUBIN,TOTAL 0.5 MG/DL (0.2-1.0); BLOOD UREA NITROGEN 9 MG/DL (7-18); CARBON DIOXIDE LEVEL 25 MEQ/L (21-32); CHLORIDE LEVEL 110 MEQ/L (98-107); CREATININE FOR GFR 0.59 MG/DL (0.55-1.30); ETHYL ALCOHOL (ETHANOL) < 0.003 % (0.000-0.010); GLOMERULAR FILTRATION RATE > 60.0 (>60); GLUCOSE, FASTING 81 MG/DL (70-100); POTASSIUM SERUM 3.8 MEQ/L (3.5-5.1); SALICYLATE LEVEL < 1.7 MG/DL (5.0-30.0); SODIUM LEVEL 141 MEQ/L (136-145); TOTAL PROTEIN 6.5 GM/DL (6.4-8.2)
[2018-06-11] MEDS ORDERED: MOM 30ML SUSPENSION UDC PO (01:15)
[2018-06-12] MEDS: NICOTINE 7 MG/24 HR TRANSDERMAL TD (18:15)
[2018-06-12] MEDS: NEOSPORIN TOP OINT 15GM TOP (20:18)
[2018-06-12] MEDS: MAALOX 30 ML SUSP *UDC PO (20:18)
[2018-06-12] MEDS: traZODone 50 MG TAB PO (20:18)
[2018-06-12] MEDS: ACETAMINOPHEN TAB 650MG DOSE (2X325MG) PO (23:32)
[2018-06-13] MEDS: NICOTINE 7 MG/24 HR TRANSDERMAL TD (09:13)
[2018-06-13] MEDS: NEOSPORIN TOP OINT 15GM TOP ×2 (09:14→16:42)
[2018-06-13] MEDS: SERTRALINE HCL 25 MG TABLET PO (14:34)
[2018-06-14] MEDS: SERTRALINE HCL 25 MG TABLET PO (08:59)
[2018-06-14] MEDS: NICOTINE 7 MG/24 HR TRANSDERMAL TD (08:59)
[2018-06-14] MEDS: NEOSPORIN TOP OINT 15GM TOP (09:00)
== END 2018-06-14 16:00 | disposition home or self-care (01) | DRG 753 ==
LOC: M ED 22:55 → M ED INP 06-11 01:02 → M PSY 06-11 01:42
DX: F39 Unspecified mood [affective] disorder (principal); F41.9 Anxiety disorder, unspecified; F12.90 Cannabis use, unspecified, uncomplicated; F43.10 Post-traumatic stress disorder, unspecified; F40.01 Agoraphobia with panic disorder; F15.90 Other stimulant use, unspecified, uncomplicated; J45.909 Unspecified asthma, uncomplicated; Z91.038 Other insect allergy status; Z88.2 Allergy status to sulfonamides

== ENCOUNTER 2018-07-18 15:09 | Emergency (ER) | payer MEDICAID ==
[~2018-07-18] VITALS: Ht 157.5 cm; Wt 55.2 kg
[~2018-07-18 15:09] MED LIST changes: +BACT800T5 PO; +HYDR50TA70; +HYDRO50TAB GT; +NAPR-50; +NAPR-50 PO; +NAPR1TAB41 PO; -NAPR500T PO; +NITR100C2; +PREN1CHW4 PO; +PREN1TAB15 PO; +PROAAER10 INH; +RISP1TAB42; +SERT25TA PO; +TRAZ-160; +TRAZO50TA PO; -VALA500T2 PO; +VALA500T5 PO; +ZOFR4TAB14 PO; +prenatal PO
[2018-07-18 15:22] VITALS: BP 107/67
[2018-07-18] MEDS ORDERED: XANA0.5T PO (15:30)
--- NOTE | 2018-07-18 16:01 | ED PDOC ---
Post-Departure Follow-Up ORDERS WERE PLACED ON THIS PT WHEN SHE ARRIVED TO THE DEPT. PT REFUSED ORDERS AN D SIGNED OUT BEFORE BEING SEEN. PT WAS NOT SEEN BY A PROVIDER BEFORE SHE LEFT THE DEPT. BILL EDUARDO PA-C Jul 18, 2018 16:00
== END 2018-07-18 16:12 | disposition left against medical advice (07) ==
LOC: M ED 15:09
DX: Z53.21 Procedure and treatment not carried out due to patient leaving prior to being seen by health care provider (principal)

== ENCOUNTER 2018-07-27 05:53 | Emergency (ER) | payer MEDICAID ==
[~2018-07-27] VITALS: Ht 160 cm; Wt 54.4 kg
[~2018-07-27 05:53] MED LIST changes: +XANA0.5T PO
[2018-07-27 07:10] LABS: HEMATOCRIT 34.6 % (36.0-47.0); HEMOGLOBIN 11.9 g/dl (12.0-15.5); MEAN CORPUSCULAR HEMOGLOBIN 30.9 pg (27.0-33.0); MEAN CORPUSCULAR HGB CONC 34.4 g/dl (32.0-36.5); MEAN CORPUSCULAR VOLUME 89.9 fl (80.0-96.0); PLATELET COUNT, AUTOMATED 281 10^3/uL (150-450); RED BLOOD COUNT 3.85 10^6/uL (4.00-5.40); WHITE BLOOD COUNT 6.2 10^3/uL (4.0-10.0)
[2018-07-27 07:28] LABS: AMPHETAMINES LEVEL URINE POSITIVE (NEGATIVE); BARBITURATES URINE NEGATIVE (NEGATIVE); BENZODIAZEPINES URINE NEGATIVE (NEGATIVE); CANNABINOIDS URINE NEGATIVE (NEGATIVE); COCAINE METABOLITE URINE POSITIVE (NEGATIVE); METHADONE URINE NEGATIVE (NEGATIVE); OPIATES URINE NEGATIVE (NEGATIVE); PHENCYCLIDINE URINE NEGATIVE (NEGATIVE)
[2018-07-27 07:31] LABS: HCG, SERUM QUALITATIVE NEGATIVE (NEGATIVE)
[2018-07-27 07:45] LABS: ACETAMINOPHEN LEVEL < 2.0 UG/ML (10.0-30.0); ALBUMIN 3.3 GM/DL (3.2-5.2); ALT/SGPT 14 U/L (12-78); BILIRUBIN,DIRECT 0.2 MG/DL (0.0-0.2); BILIRUBIN,TOTAL 0.5 MG/DL (0.2-1.0); BLOOD UREA NITROGEN 13 MG/DL (7-18); CARBON DIOXIDE LEVEL 25 MEQ/L (21-32); CHLORIDE LEVEL 107 MEQ/L (98-107); CREATININE FOR GFR 0.52 MG/DL (0.55-1.30); ETHYL ALCOHOL (ETHANOL) < 0.003 % (0.000-0.010); GLOMERULAR FILTRATION RATE > 60.0 (>60); GLUCOSE, FASTING 95 MG/DL (70-100); POTASSIUM SERUM 4.1 MEQ/L (3.5-5.1); SALICYLATE LEVEL < 1.7 MG/DL (5.0-30.0); SODIUM LEVEL 140 MEQ/L (136-145); THYROID STIMULATING HORMONE 0.258 uIU/ML (0.358-3.740); TOTAL PROTEIN 6.3 GM/DL (6.4-8.2)
[2018-07-27] MEDS ORDERED: ACETAMINOPHEN 325 MG TAB PO ONE (08:30)
[2018-07-27 09:55] VITALS: BP 111/55
== END 2018-07-27 10:03 | disposition home or self-care (01) ==
LOC: M ED 05:53
DX: F43.0 Acute stress reaction (principal); F42.4 Excoriation (skin-picking) disorder; F19.10 Other psychoactive substance abuse, uncomplicated; Z72.0 Tobacco use; R56.9 Unspecified convulsions; F41.9 Anxiety disorder, unspecified; F32.9 Major depressive disorder, single episode, unspecified; F43.10 Post-traumatic stress disorder, unspecified; F90.9 Attention-deficit hyperactivity disorder, unspecified type; J45.909 Unspecified asthma, uncomplicated; Z87.442 Personal history of urinary calculi; Z87.440 Personal history of urinary (tract) infections; Z79.899 Other long term (current) drug therapy; Z91.030 Bee allergy status; Z91.89 Other specified personal risk factors, not elsewhere classified; Z88.2 Allergy status to sulfonamides
CPT/HCPCS: 80048; 80076; 80307; 84443; 84703; 85027; 99284; G0480

== ENCOUNTER 2018-08-07 13:17 | Emergency (ER) | payer MEDICAID, OTHER ==
[~2018-08-07] VITALS: Ht 157.5 cm; Wt 52.3 kg
[2018-08-07 13:31] VITALS: BP 105/61
== END 2018-08-07 14:02 | disposition home or self-care (01) ==
LOC: M ED 13:17
DX: O9A.211 Injury, poisoning and certain other consequences of external causes complicating pregnancy, first trimester (principal); O30.001 Twin pregnancy, unspecified number of placenta and unspecified number of amniotic sacs, first trimester; T14.8XXA Other injury of unspecified body region, initial encounter; V43.52XA Car driver injured in collision with other type car in traffic accident, initial encounter; Y92.410 Unspecified street and highway as the place of occurrence of the external cause; O26.891 Other specified pregnancy related conditions, first trimester; M54.2 Cervicalgia; Z88.2 Allergy status to sulfonamides; Z91.048 Other nonmedicinal substance allergy status; Z91.030 Bee allergy status; Z79.899 Other long term (current) drug therapy; Z3A.01 Less than 8 weeks gestation of pregnancy

== ENCOUNTER 2018-08-13 20:07 | Emergency (ER) | payer MEDICAID, OTHER ==
[~2018-08-13] VITALS: Ht 157.5 cm; Wt 49.7 kg
[2018-08-13] MEDS ORDERED: HALOPERIDOL 5 MG/ML VIAL (J1630) IM ONE (20:15)
[2018-08-13] MEDS ORDERED: diphenhydrAMINE INJ 50MG/ML VIAL (J1200) IM ONE (20:15)
[2018-08-13] MEDS ORDERED: HALOPERIDOL 5 MG/ML VIAL (J1630) IM STA (20:23)
[2018-08-13] MEDS ORDERED: diphenhydrAMINE INJ 50MG/ML VIAL (J1200) IM STA (20:23)
[2018-08-13] MEDS ORDERED: DERMABOND TOPICAL SKIN ADHESIVE TOP ONE (20:45)
[2018-08-13 21:14] LABS: HEMATOCRIT 39.6 % (36.0-47.0); HEMOGLOBIN 13.2 g/dl (12.0-15.5); MEAN CORPUSCULAR HEMOGLOBIN 30.7 pg (27.0-33.0); MEAN CORPUSCULAR HGB CONC 33.3 g/dl (32.0-36.5); MEAN CORPUSCULAR VOLUME 92.1 fl (80.0-96.0); PLATELET COUNT, AUTOMATED 341 10^3/uL (150-450); WHITE BLOOD COUNT 7.4 10^3/uL (4.0-10.0)
[2018-08-13 21:17] LABS: HCG, SERUM QUALITATIVE NEGATIVE (NEGATIVE)
[2018-08-13 21:36] LABS: AMPHETAMINES LEVEL URINE POSITIVE (NEGATIVE); BARBITURATES URINE NEGATIVE (NEGATIVE); BENZODIAZEPINES URINE NEGATIVE (NEGATIVE); CANNABINOIDS URINE NEGATIVE (NEGATIVE); COCAINE METABOLITE URINE NEGATIVE (NEGATIVE); METHADONE URINE NEGATIVE (NEGATIVE); OPIATES URINE NEGATIVE (NEGATIVE); PHENCYCLIDINE URINE NEGATIVE (NEGATIVE)
[2018-08-13] MEDS ORDERED: chlorproMAZINE INJ 50MG/2ML AMP (J3230) IM STA (21:36)
[2018-08-13 21:43] LABS: ALBUMIN 4.2 GM/DL (3.2-5.2); ALT/SGPT 20 U/L (12-78); BILIRUBIN,DIRECT 0.2 MG/DL (0.0-0.2); BILIRUBIN,TOTAL 0.7 MG/DL (0.2-1.0); BLOOD UREA NITROGEN 10 MG/DL (7-18); CALCIUM LEVEL 8.7 MG/DL (8.5-10.1); CARBON DIOXIDE LEVEL 25 MEQ/L (21-32); CHLORIDE LEVEL 110 MEQ/L (98-107); CREATININE FOR GFR 0.67 MG/DL (0.55-1.30); ETHYL ALCOHOL (ETHANOL) < 0.003 % (0.000-0.010); GLOMERULAR FILTRATION RATE > 60.0 (>60); GLUCOSE, FASTING 83 MG/DL (70-100); POTASSIUM SERUM 3.8 MEQ/L (3.5-5.1); SALICYLATE LEVEL < 1.7 MG/DL (5.0-30.0); SODIUM LEVEL 143 MEQ/L (136-145); THYROID STIMULATING HORMONE 0.216 uIU/ML (0.358-3.740); TOTAL PROTEIN 7.4 GM/DL (6.4-8.2)
[2018-08-13 21:44] LABS: ACETAMINOPHEN LEVEL < 2.0 UG/ML (10.0-30.0)
[2018-08-13 23:26] VITALS: BP 124/65
== END 2018-08-13 23:41 | disposition home or self-care (01) ==
LOC: M ED 20:07
DX: F15.10 Other stimulant abuse, uncomplicated (principal); Z60.9 Problem related to social environment, unspecified; S51.812A Laceration without foreign body of left forearm, initial encounter; X58.XXXA Exposure to other specified factors, initial encounter; Y92.89 Other specified places as the place of occurrence of the external cause; Z91.030 Bee allergy status; Z79.899 Other long term (current) drug therapy; Z88.1 Allergy status to other antibiotic agents; Z88.2 Allergy status to sulfonamides; Z91.048 Other nonmedicinal substance allergy status
CPT/HCPCS: 12001; 80048; 80076; 80307; 84443; 84703; 85027; 96372; 99284; G0480

== ENCOUNTER 2018-09-22 21:40 | Outpatient (CLI) | payer MEDICAID ==
[~2018-09-22 21:40] MED LIST changes: +ACYC1CAP20 PO; -ACYC200CA PO; -NAPR-50; -NAPR-50 PO; +NAPR-837; +NAPR-837 PO; -SERT25TA PO; +SERT25TA85 PO
== END 2018-09-22 22:04 | disposition left against medical advice (07) ==
LOC: M LDO 21:40
PROVIDERS: ATTEND Obstetrics & Gynecology
DX: Z36.89 Encounter for other specified antenatal screening (principal); Z53.29 Procedure and treatment not carried out because of patient's decision for other reasons; Z3A.00 Weeks of gestation of pregnancy not specified

== ENCOUNTER 2018-11-30 12:10 | Emergency (ER) | payer MEDICAID ==
[~2018-11-30 12:10] MED LIST changes: -TRAZ-160; +TRAZ-252; +TRAZ1TAB10 PO; -TRAZO50TA PO
[2018-11-30 12:45] LABS: HEMATOCRIT 41.2 % (36.0-47.0); HEMOGLOBIN 13.7 g/dl (12.0-15.5); MEAN CORPUSCULAR HEMOGLOBIN 30.9 pg (27.0-33.0); MEAN CORPUSCULAR HGB CONC 33.3 g/dl (32.0-36.5); PLATELET COUNT, AUTOMATED 225 10^3/uL (150-450); RED BLOOD COUNT 4.43 10^6/uL (4.00-5.40); WHITE BLOOD COUNT 3.4 10^3/uL (4.0-10.0)
[2018-11-30 13:15] LABS: HCG, SERUM QUALITATIVE NEGATIVE (NEGATIVE)
[2018-11-30 13:20] LABS: ACETAMINOPHEN LEVEL < 2.0 UG/ML (10.0-30.0); ALBUMIN 3.8 GM/DL (3.2-5.2); ALT/SGPT 229 U/L (12-78); BILIRUBIN,DIRECT 0.6 MG/DL (0.0-0.2); BILIRUBIN,TOTAL 1.9 MG/DL (0.2-1.0); BLOOD UREA NITROGEN 9 MG/DL (7-18); CALCIUM LEVEL 8.4 MG/DL (8.5-10.1); CARBON DIOXIDE LEVEL 24 MEQ/L (21-32); CHLORIDE LEVEL 109 MEQ/L (98-107); CREATININE FOR GFR 0.71 MG/DL (0.55-1.30); ETHYL ALCOHOL (ETHANOL) < 0.003 % (0.000-0.010); GLOMERULAR FILTRATION RATE > 60.0 (>60); GLUCOSE, FASTING 74 MG/DL (70-100); POTASSIUM SERUM 3.4 MEQ/L (3.5-5.1); SALICYLATE LEVEL < 1.7 MG/DL (5.0-30.0); SODIUM LEVEL 142 MEQ/L (136-145); THYROID STIMULATING HORMONE 0.549 uIU/ML (0.358-3.740); TOTAL PROTEIN 7.4 GM/DL (6.4-8.2)
[2018-11-30 13:21] LABS: AMPHETAMINES LEVEL URINE POSITIVE (NEGATIVE); BARBITURATES URINE NEGATIVE (NEGATIVE); BENZODIAZEPINES URINE NEGATIVE (NEGATIVE); CANNABINOIDS URINE NEGATIVE (NEGATIVE); COCAINE METABOLITE URINE NEGATIVE (NEGATIVE); METHADONE URINE NEGATIVE (NEGATIVE); OPIATES URINE NEGATIVE (NEGATIVE); PHENCYCLIDINE URINE NEGATIVE (NEGATIVE)
--- NOTE | 2018-11-30 14:11 | REP ---
CT Head without contrast HISTORY: Fall COMPARISON: 03/31/2018 There is no intraparenchymal hemorrhage, acute infarct, mass or midline shift. The ventricular system is normal in appearance. There is no extra cerebral collection. There is no fracture. The visualized sinuses are clear. IMPRESSION: There is no intracranial lesion. Electronically Signed by Laron Parada MD 11/30/2018 02:03 P
--- NOTE | 2018-11-30 14:14 | REP ---
CT cervical spine without contrast HISTORY: Fall COMPARISON: 03/31/2018 There is no acute fracture or subluxation. There is no disc bulge or herniation. The spinal canal and neural foramina are patent. The intervertebral discs and vertebral bodies are normal in height. IMPRESSION: There is no acute fracture or subluxation. Electronically Signed by Laron Parada MD 11/30/2018 02:05 P
[2018-11-30 16:41] VITALS: BP 126/67
== END 2018-11-30 16:44 | disposition home or self-care (01) ==
LOC: M ED 12:10
DX: F15.20 Other stimulant dependence, uncomplicated (principal); F43.0 Acute stress reaction; F41.9 Anxiety disorder, unspecified; F32.9 Major depressive disorder, single episode, unspecified; F43.10 Post-traumatic stress disorder, unspecified; F90.9 Attention-deficit hyperactivity disorder, unspecified type; J45.909 Unspecified asthma, uncomplicated; Z91.030 Bee allergy status; Z88.2 Allergy status to sulfonamides; Z91.048 Other nonmedicinal substance allergy status
CPT/HCPCS: 36415; 70450; 72125; 80048; 80076; 80307; 84443; 84703; 85027; 99284; G0480

== ENCOUNTER 2019-01-06 08:08 | Emergency (ER) | payer MEDICAID, OTHER ==
[~2019-01-06] VITALS: Ht 157.5 cm; Wt 57.1 kg
[2019-01-06] MEDS ORDERED: NS 1,000 ML IV ONE (08:15)
[2019-01-06] MEDS ORDERED: LIDOCAINE 2% W/EPIN INJ 20ML **PRES FREE As Ordered ONE (08:22)
[2019-01-06 08:28] LABS: HEMATOCRIT 42.9 % (36.0-47.0); HEMOGLOBIN 13.7 g/dl (12.0-15.5); MEAN CORPUSCULAR HEMOGLOBIN 31.1 pg (27.0-33.0); MEAN CORPUSCULAR HGB CONC 31.9 g/dl (32.0-36.5); MEAN CORPUSCULAR VOLUME 97.3 fl (80.0-96.0); PLATELET COUNT, AUTOMATED 264 10^3/uL (150-450); RED BLOOD COUNT 4.41 10^6/uL (4.00-5.40); WHITE BLOOD COUNT 4.7 10^3/uL (4.0-10.0)
[2019-01-06] MEDS ORDERED: DERMABOND TOPICAL SKIN ADHESIVE TOP ONE (08:30)
[2019-01-06] MEDS ORDERED: LIDOCAINE 2% W/EPIN INJ 20ML **PRES FREE INJ ONE (08:30)
[2019-01-06 09:00] LABS: AMPHETAMINES LEVEL URINE NEGATIVE (NEGATIVE); BARBITURATES URINE NEGATIVE (NEGATIVE); BENZODIAZEPINES URINE NEGATIVE (NEGATIVE); CANNABINOIDS URINE NEGATIVE (NEGATIVE); COCAINE METABOLITE URINE NEGATIVE (NEGATIVE); METHADONE URINE NEGATIVE (NEGATIVE); OPIATES URINE NEGATIVE (NEGATIVE); PHENCYCLIDINE URINE NEGATIVE (NEGATIVE)
[2019-01-06 09:03] LABS: ACETAMINOPHEN LEVEL < 2.0 UG/ML (10.0-30.0); ALBUMIN 3.8 GM/DL (3.2-5.2); ALT/SGPT 86 U/L (12-78); BILIRUBIN,DIRECT 0.1 MG/DL (0.0-0.2); BILIRUBIN,TOTAL 0.6 MG/DL (0.2-1.0); BLOOD UREA NITROGEN 18 MG/DL (7-18); CALCIUM LEVEL 8.6 MG/DL (8.5-10.1); CARBON DIOXIDE LEVEL 27 MEQ/L (21-32); CHLORIDE LEVEL 108 MEQ/L (98-107); ETHYL ALCOHOL (ETHANOL) < 0.003 % (0.000-0.010); GLOMERULAR FILTRATION RATE > 60.0 (>60); GLUCOSE, FASTING 88 MG/DL (70-100); POTASSIUM SERUM 5.3 MEQ/L (3.5-5.1); SALICYLATE LEVEL < 1.7 MG/DL (5.0-30.0); SODIUM LEVEL 141 MEQ/L (136-145); TOTAL PROTEIN 7.5 GM/DL (6.4-8.2)
[2019-01-06 11:41] VITALS: BP 112/59
== END 2019-01-06 11:30 | disposition home or self-care (01) ==
LOC: EDBD 08:08 → M ED 08:08
DX: S11.91XA Laceration without foreign body of unspecified part of neck, initial encounter (principal); S61.511A Laceration without foreign body of right wrist, initial encounter; S61.512A Laceration without foreign body of left wrist, initial encounter; S51.811A Laceration without foreign body of right forearm, initial encounter; S51.812A Laceration without foreign body of left forearm, initial encounter; X78.8XXA Intentional self-harm by other sharp object, initial encounter; Y92.148 Other place in prison as the place of occurrence of the external cause; F41.9 Anxiety disorder, unspecified; F32.9 Major depressive disorder, single episode, unspecified; F43.10 Post-traumatic stress disorder, unspecified; F90.9 Attention-deficit hyperactivity disorder, unspecified type; F19.10 Other psychoactive substance abuse, uncomplicated; Z87.820 Personal history of traumatic brain injury; R56.9 Unspecified convulsions; J45.909 Unspecified asthma, uncomplicated; E03.9 Hypothyroidism, unspecified; M54.9 Dorsalgia, unspecified; Z88.2 Allergy status to sulfonamides; Z91.048 Other nonmedicinal substance allergy status; Z91.030 Bee allergy status
CPT/HCPCS: 12001; 80048; 80076; 80307; 84443; 84702; 85027; 99284; G0480

== ENCOUNTER → 2019-03-26 | Outpatient (REF) | payer OTHER ==
[~2019-03-26] MED LIST changes: +HYDR1TAB33 GT; -HYDRO50TAB GT
[2019-03-26 15:34] LABS: CHLAMYDIA DNA AMPLIFICATION POSITIVE (NEGATIVE); GC DNA AMPLIFICATION NEGATIVE (NEGATIVE)
== END ==
LOC: M LAB REF 13:11
PROVIDERS: ATTEND Surgery
DX: A64 Unspecified sexually transmitted disease (principal)

== ENCOUNTER 2019-04-30 22:51 | Emergency (ER) | payer MEDICAID, OTHER ==
[~2019-04-30] VITALS: Ht 157.5 cm; Wt 59.2 kg
[2019-04-30 22:51] VITALS: BP 131/82
== END 2019-05-01 00:10 | disposition left against medical advice (07) ==
LOC: M ED 22:51
DX: F15.10 Other stimulant abuse, uncomplicated (principal); Z88.1 Allergy status to other antibiotic agents; Z88.2 Allergy status to sulfonamides; Z91.030 Bee allergy status; Z91.048 Other nonmedicinal substance allergy status; F17.210 Nicotine dependence, cigarettes, uncomplicated

== ENCOUNTER 2019-05-13 01:08 | Emergency (ER) | payer MEDICAID ==
[~2019-05-13] VITALS: Ht 157.5 cm; Wt 56.7 kg
[2019-05-13 01:09] VITALS: BP 132/87
[2019-05-13] MEDS ORDERED: NEOSPORIN OINT 0.9 GM PKT (FLOOR STOCK) TOP ONE (01:45)
[2019-05-13] MEDS ORDERED: KEFL500C17 PO (01:49)
== END 2019-05-13 02:05 | disposition home or self-care (01) ==
LOC: M ED 01:08
DX: S81.811A Laceration without foreign body, right lower leg, initial encounter (principal); E03.9 Hypothyroidism, unspecified; F43.10 Post-traumatic stress disorder, unspecified; F31.9 Bipolar disorder, unspecified; F19.10 Other psychoactive substance abuse, uncomplicated; M54.9 Dorsalgia, unspecified; Z79.51 Long term (current) use of inhaled steroids; Z86.14 Personal history of Methicillin resistant Staphylococcus aureus infection; Z88.1 Allergy status to other antibiotic agents; Z91.030 Bee allergy status; Z91.048 Other nonmedicinal substance allergy status

== ENCOUNTER 2019-05-15 17:37 | Inpatient (IN) | payer MEDICAID ==
[~2019-05-15] VITALS: Ht 157.5 cm; Wt 58.2 kg
[~2019-05-15 17:37] MED LIST changes: +KEFL500C17 PO
[2019-05-15 18:59] LABS: HEMATOCRIT 47.5 % (36.0-47.0); HEMOGLOBIN 15.3 g/dl (12.0-15.5); MEAN CORPUSCULAR HEMOGLOBIN 30.2 pg (27.0-33.0); MEAN CORPUSCULAR HGB CONC 32.2 g/dl (32.0-36.5); MEAN CORPUSCULAR VOLUME 93.7 fl (80.0-96.0); PLATELET COUNT, AUTOMATED 251 10^3/uL (150-450); RED BLOOD COUNT 5.07 10^6/uL (4.00-5.40)
[2019-05-15 19:24] LABS: AMPHETAMINES LEVEL URINE POSITIVE (NEGATIVE); BARBITURATES URINE NEGATIVE (NEGATIVE); BENZODIAZEPINES URINE NEGATIVE (NEGATIVE); CANNABINOIDS URINE NEGATIVE (NEGATIVE); COCAINE METABOLITE URINE POSITIVE (NEGATIVE); METHADONE URINE NEGATIVE (NEGATIVE); OPIATES URINE NEGATIVE (NEGATIVE); PHENCYCLIDINE URINE NEGATIVE (NEGATIVE)
[2019-05-15 19:29] LABS: ACETAMINOPHEN LEVEL < 2.0 UG/ML (10.0-30.0); ALBUMIN 4.3 GM/DL (3.2-5.2); ALT/SGPT 85 U/L (12-78); BILIRUBIN,DIRECT 0.4 MG/DL (0.0-0.2); BILIRUBIN,TOTAL 1.5 MG/DL (0.2-1.0); BLOOD UREA NITROGEN 7 MG/DL (7-18); CARBON DIOXIDE LEVEL 22 MEQ/L (21-32); CHLORIDE LEVEL 110 MEQ/L (98-107); CREATININE FOR GFR 0.84 MG/DL (0.55-1.30); ETHYL ALCOHOL (ETHANOL) < 0.003 % (0.000-0.010); GLOMERULAR FILTRATION RATE > 60.0 (>60); GLUCOSE, FASTING 77 MG/DL (70-100); SALICYLATE LEVEL < 1.7 MG/DL (5.0-30.0); SODIUM LEVEL 139 MEQ/L (136-145); THYROID STIMULATING HORMONE 0.382 uIU/ML (0.358-3.740)
[2019-05-15] MEDS ORDERED: MOM 30ML SUSPENSION UDC PO PRN (21:15)
[2019-05-15] MEDS ORDERED: MAALOX 30 ML SUSP *UDC PO PRN (21:15)
[2019-05-15] MEDS ORDERED: VENTAER INH (22:04)
[2019-05-15] MEDS ORDERED: CEPH500C PO (22:04)
[2019-05-15] MEDS ORDERED: TRAZ-252 PO (22:04)
[2019-05-15 22:32] VITALS: BP 119/60
[2019-05-15] MEDS: traZODone 50 MG TAB PO PRN (22:47)
[2019-05-15 23:58] LABS: HCG, SERUM QUALITATIVE NEGATIVE (NEGATIVE)
--- NOTE | 2019-05-16 00:04 | ECGEPIP ---
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
[2019-05-16 05:58] VITALS: BP 106/58
[2019-05-16] MEDS ORDERED: INFLUENZA QUADRIVALENT PF VACCINE 0.5ML SYRINGE (90686) IM ONE (09:00)
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
[2019-05-16 16:15] VITALS: BP 105/59
[2019-05-16] MEDS: traZODone 50 MG TAB PO PRN (21:05)
[2019-05-16] MEDS: ACETAMINOPHEN TAB 650MG DOSE (2X325MG) PO PRN (21:07)
[2019-05-17] MEDS: ACETAMINOPHEN TAB 650MG DOSE (2X325MG) PO PRN (03:21)
[2019-05-17 06:35] VITALS: BP 118/57
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
== END 2019-05-17 12:10 | disposition home or self-care (01) | DRG 758 ==
LOC: M ED 17:37 → M ED INP 21:12 → M PSY 21:50
PROVIDERS: ADMIT Psychiatry & Neurology Psychiatry; ATTEND Psychiatry & Neurology Addiction Medicine
DX: F63.9 Impulse disorder, unspecified (principal); F60.3 Borderline personality disorder; F11.20 Opioid dependence, uncomplicated; F12.20 Cannabis dependence, uncomplicated; F17.210 Nicotine dependence, cigarettes, uncomplicated; Z81.8 Family history of other mental and behavioral disorders; Z81.4 Family history of other substance abuse and dependence; Z91.410 Personal history of adult physical and sexual abuse; F41.9 Anxiety disorder, unspecified; F32.9 Major depressive disorder, single episode, unspecified; F43.10 Post-traumatic stress disorder, unspecified; F90.9 Attention-deficit hyperactivity disorder, unspecified type; F19.20 Other psychoactive substance dependence, uncomplicated; G89.29 Other chronic pain; M54.9 Dorsalgia, unspecified; Z79.899 Other long term (current) drug therapy; Z88.2 Allergy status to sulfonamides; Z91.030 Bee allergy status; Z91.040 Latex allergy status; Z91.5 Personal history of self-harm

== ENCOUNTER 2019-05-28 02:57 | Emergency (ER) | payer MEDICAID ==
[~2019-05-28] VITALS: Ht 157.5 cm; Wt 58.3 kg
[2019-05-28 02:57] VITALS: BP 122/73
[~2019-05-28 02:57] MED LIST changes: +CEPH500C PO; +TRAZ-252 PO; -VALA1TAB2 PO; +VALA1TAB64 PO; +VENTAER INH
== END 2019-05-28 03:38 | disposition left against medical advice (07) ==
LOC: M ED 02:57
DX: Z53.21 Procedure and treatment not carried out due to patient leaving prior to being seen by health care provider (principal)

== ENCOUNTER 2019-07-01 09:23 | Inpatient (IN) | payer MEDICAID ==
[~2019-07-01] VITALS: Ht 157.5 cm; Wt 53.9 kg
[2019-07-01 10:11] LABS: HEMATOCRIT 45.7 % (36.0-47.0); HEMOGLOBIN 14.7 g/dl (12.0-15.5); MEAN CORPUSCULAR HGB CONC 32.2 g/dl (32.0-36.5); MEAN CORPUSCULAR VOLUME 96.4 fl (80.0-96.0); PLATELET COUNT, AUTOMATED 256 10^3/uL (150-450); RED BLOOD COUNT 4.74 10^6/uL (4.00-5.40); WHITE BLOOD COUNT 4.5 10^3/uL (4.0-10.0)
[2019-07-01 10:34] LABS: AMPHETAMINES LEVEL URINE POSITIVE (NEGATIVE); BARBITURATES URINE NEGATIVE (NEGATIVE); BENZODIAZEPINES URINE NEGATIVE (NEGATIVE); CANNABINOIDS URINE POSITIVE (NEGATIVE); COCAINE METABOLITE URINE NEGATIVE (NEGATIVE); METHADONE URINE NEGATIVE (NEGATIVE); OPIATES URINE NEGATIVE (NEGATIVE); PHENCYCLIDINE URINE NEGATIVE (NEGATIVE)
[2019-07-01 11:38] LABS: HCG, SERUM QUALITATIVE NEGATIVE (NEGATIVE)
[2019-07-01 11:55] LABS: ACETAMINOPHEN LEVEL < 2.0 UG/ML (10.0-30.0); ALBUMIN 3.9 GM/DL (3.2-5.2); ALT/SGPT 44 U/L (12-78); BILIRUBIN,DIRECT 0.2 MG/DL (0.0-0.2); BILIRUBIN,TOTAL 0.7 MG/DL (0.2-1.0); BLOOD UREA NITROGEN 12 MG/DL (7-18); CALCIUM LEVEL 8.7 MG/DL (8.5-10.1); CARBON DIOXIDE LEVEL 22 MEQ/L (21-32); CHLORIDE LEVEL 110 MEQ/L (98-107); CREATININE FOR GFR 0.61 MG/DL (0.55-1.30); ETHYL ALCOHOL (ETHANOL) < 0.003 % (0.000-0.010); GLOMERULAR FILTRATION RATE > 60.0 (>60); GLUCOSE, FASTING 88 MG/DL (70-100); POTASSIUM SERUM 3.9 MEQ/L (3.5-5.1); SALICYLATE LEVEL < 1.7 MG/DL (5.0-30.0); SODIUM LEVEL 142 MEQ/L (136-145); THYROID STIMULATING HORMONE 0.671 uIU/ML (0.358-3.740); TOTAL PROTEIN 7.4 GM/DL (6.4-8.2)
[2019-07-01] MEDS ORDERED: OLANZapine ORAL DISINTEGRATING TAB 5MG PO PRN (18:45)
[2019-07-01] MEDS ORDERED: NICOTINE 21MG/24HR 1 EA TRANSDERMAL TD PRN (18:45)
[2019-07-01] MEDS ORDERED: MOM 30ML SUSPENSION UDC PO PRN (18:45)
[2019-07-01] MEDS ORDERED: traZODone 50 MG TAB PO PRN (18:45)
[2019-07-01] MEDS ORDERED: MAALOX 30 ML SUSP *UDC PO PRN (18:45)
[2019-07-01 21:10] VITALS: BP 119/76
[2019-07-01] MEDS: IBUPROFEN 400 MG TAB PO PRN (21:22)
[2019-07-02 07:07] VITALS: BP 123/58
[2019-07-02] MEDS: IBUPROFEN 400 MG TAB PO PRN ×2 (09:51→19:07)
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
[2019-07-02] MEDS ORDERED: IPRATROPIUM 0.5MG/ALBUTEROL 2.5MG INH SOL UD 3ML (DUONEB)(J7620) NEB PRN (15:30)
[2019-07-02 15:47] VITALS: BP 120/71
[2019-07-03] MEDS ORDERED: TRAZ-252 PO (08:34)
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
[2019-07-03] MEDS: IBUPROFEN 400 MG TAB PO PRN (08:49)
== END 2019-07-03 10:15 | disposition home or self-care (01) | DRG 758 ==
LOC: M ED 09:23 → M ED INP 18:38 → M PSY 20:32
PROVIDERS: ADMIT Psychiatry & Neurology Psychiatry; ATTEND Psychiatry & Neurology Psychiatry
DX: F63.9 Impulse disorder, unspecified (principal); F43.10 Post-traumatic stress disorder, unspecified; F12.20 Cannabis dependence, uncomplicated; F15.20 Other stimulant dependence, uncomplicated; F60.3 Borderline personality disorder; Z91.5 Personal history of self-harm; F90.9 Attention-deficit hyperactivity disorder, unspecified type; Z87.891 Personal history of nicotine dependence; Z62.810 Personal history of physical and sexual abuse in childhood; Z79.899 Other long term (current) drug therapy; Z79.51 Long term (current) use of inhaled steroids; Z88.2 Allergy status to sulfonamides; Z91.030 Bee allergy status; Z91.040 Latex allergy status; J45.909 Unspecified asthma, uncomplicated; M54.2 Cervicalgia; F32.9 Major depressive disorder, single episode, unspecified

== ENCOUNTER 2019-07-13 21:54 | Emergency (ER) | payer MEDICAID ==
[~2019-07-13] VITALS: Ht 157.5 cm; Wt 53.6 kg
[2019-07-14 00:28] LABS: AMPHETAMINES LEVEL URINE POSITIVE (NEGATIVE); BARBITURATES URINE NEGATIVE (NEGATIVE); BENZODIAZEPINES URINE NEGATIVE (NEGATIVE); CANNABINOIDS URINE POSITIVE (NEGATIVE); COCAINE METABOLITE URINE NEGATIVE (NEGATIVE); METHADONE URINE NEGATIVE (NEGATIVE); OPIATES URINE NEGATIVE (NEGATIVE); PHENCYCLIDINE URINE NEGATIVE (NEGATIVE)
[2019-07-14 02:17] VITALS: BP 100/50
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
--- NOTE | 2019-07-14 14:00 | REP ---
BILATERAL WRIST SERIES, COMPLETE: 07/13/2019. Clinical history: Pain, swelling, unknown trauma. Findings: Four views of each side were performed. Right wrist: Distal radius intact. The distal ulna shows an ulna minus variance. Carpal bones and joint spaces are unremarkable. There is no subluxation, dislocation and no fracture or avulsion. Proximal metacarpals and their articulations were unremarkable. Impression: 1. Although minus variance without fracture, avulsion, subluxation or other acute finding. Left wrist: Distal radius intact. The distal ulna shows an ulna minus variance. Carpal bones and joint spaces are unremarkable. There is no subluxation, dislocation and no fracture or avulsion. Proximal metacarpals and their articulations were unremarkable. Impression: 1. Although minus variance without fracture, avulsion, subluxation or other acute finding. Electronically Signed by Alfonso Hudson MD 07/14/2019 01:52 P
== END 2019-07-14 02:17 | disposition home or self-care (01) ==
LOC: M ED 21:54
DX: F15.10 Other stimulant abuse, uncomplicated (principal); F31.9 Bipolar disorder, unspecified; S00.03XA Contusion of scalp, initial encounter; X58.XXXA Exposure to other specified factors, initial encounter; Y92.9 Unspecified place or not applicable; Y93.89 Activity, other specified; Y99.9 Unspecified external cause status

== ENCOUNTER 2019-07-26 01:26 | Emergency (ER) | payer MEDICAID ==
[~2019-07-26 01:26] MED LIST changes: +VALA1TAB5 PO; -VALA1TAB64 PO
[2019-07-26 04:24] VITALS: BP 114/74
== END 2019-07-26 04:30 | disposition home or self-care (01) ==
LOC: M ED 01:26
DX: F43.0 Acute stress reaction (principal); F15.10 Other stimulant abuse, uncomplicated; Z88.2 Allergy status to sulfonamides; Z91.030 Bee allergy status; Z91.89 Other specified personal risk factors, not elsewhere classified

== ENCOUNTER 2019-08-07 14:35 | Emergency (ER) | payer MEDICAID ==
[~2019-08-07] VITALS: Ht 157.5 cm; Wt 53.4 kg
[2019-08-07 14:35] VITALS: BP 108/78
[2019-08-07] MEDS ORDERED: PREN29TA4 PO (15:10)
[2019-08-07 15:13] LABS: BASO % 0.3 % (0.0-1.0); EOS # 0.1 10^3/uL (0.0-0.5); EOS % 1.6 % (0.0-3.0); HEMATOCRIT 41.8 % (36.0-47.0); HEMOGLOBIN 13.9 g/dl (12.0-15.5); LYMPH # 1.8 10^3/uL (1.5-5.0); LYMPH % 26.5 % (24.0-44.0); MEAN CORPUSCULAR HEMOGLOBIN 31.4 pg (27.0-33.0); MEAN CORPUSCULAR HGB CONC 33.3 g/dl (32.0-36.5); MEAN CORPUSCULAR VOLUME 94.4 fl (80.0-96.0); MONO # 0.5 10^3/uL (0.0-0.8); MONO % 7.5 % (0.0-5.0); NEUTROPHILS # 4.4 10^3/uL (1.5-8.5); NEUTROPHILS % 63.8 % (36.0-66.0); PLATELET COUNT, AUTOMATED 300 10^3/uL (150-450); RED BLOOD COUNT 4.43 10^6/uL (4.00-5.40); WHITE BLOOD COUNT 6.8 10^3/uL (4.0-10.0)
[2019-08-07] MEDS ORDERED: NS 1,000 ML IV ONE (15:45)
[2019-08-07] MEDS ORDERED: METOCLOPRAMIDE INJ 10MG/2ML VIAL (J2765) IV ONE (15:45)
[2019-08-07 16:00] LABS: ALBUMIN 4.3 GM/DL (3.2-5.2); ALT/SGPT 62 U/L (12-78); BILIRUBIN,DIRECT 0.2 MG/DL (0.0-0.2); BILIRUBIN,TOTAL 0.8 MG/DL (0.2-1.0); BLOOD UREA NITROGEN 4 MG/DL (7-18); CALCIUM LEVEL 8.9 MG/DL (8.5-10.1); CARBON DIOXIDE LEVEL 26 MEQ/L (21-32); CHLORIDE LEVEL 107 MEQ/L (98-107); CREATININE FOR GFR 0.52 MG/DL (0.55-1.30); GLOMERULAR FILTRATION RATE > 60.0 (>60); GLUCOSE, FASTING 75 MG/DL (70-100); HCG, SERUM QUANTITATIVE 45024 MIU/ML; LIPASE 122 U/L (73-393); POTASSIUM SERUM 3.9 MEQ/L (3.5-5.1); SODIUM LEVEL 138 MEQ/L (136-145); TOTAL PROTEIN 7.9 GM/DL (6.4-8.2)
--- NOTE | 2019-08-07 16:06 | REP ---
Clinical: Pelvic pain cramping for dating and viability. Technique: Transabdominal first trimester obstetrical ultrasound with color Doppler evaluation. Findings: Ultrasound examination demonstrates a single live early intrauterine . Gestational sac with yolk sac and pole identified. CRL of 10 mm corresponds to 7 weeks 1 day gestational age with estimated date of delivery 03/24/2020. heart rate equals 153 beats per minute. Impression: Single live intrauterine and 7 weeks 1 day gestational age. No gross abnormalities are identified. Complete anatomical assessment should be performed at 19-20 weeks. Electronically Signed by Woodrow Guevara MD 08/07/2019 03:57 P
== END 2019-08-07 16:28 | disposition left against medical advice (07) ==
LOC: M ED 14:35
DX: O26.91 Pregnancy related conditions, unspecified, first trimester (principal); O99.511 Diseases of the respiratory system complicating pregnancy, first trimester; O99.341 Other mental disorders complicating pregnancy, first trimester; O99.321 Drug use complicating pregnancy, first trimester; Z3A.01 Less than 8 weeks gestation of pregnancy; Z79.899 Other long term (current) drug therapy; Z88.2 Allergy status to sulfonamides; Z91.89 Other specified personal risk factors, not elsewhere classified; Z91.030 Bee allergy status; Z53.21 Procedure and treatment not carried out due to patient leaving prior to being seen by health care provider
CPT/HCPCS: 76801; 80048; 80076; 81001; 83690; 84702; 85025; 93976; 96374; 99284; J2765

== ENCOUNTER 2019-08-15 23:04 | Emergency (ER) | payer MEDICAID ==
[~2019-08-15] VITALS: Ht 157.5 cm; Wt 51.4 kg
[~2019-08-15 23:04] MED LIST changes: +PREN29TA4 PO
[2019-08-15] MEDS ORDERED: METOCLOPRAMIDE 10 MG TAB PO ONE (23:45)
[2019-08-16 00:14] LABS: BASO % 0.5 % (0.0-1.0); EOS # 0.1 10^3/uL (0.0-0.5); EOS % 0.9 % (0.0-3.0); HEMOGLOBIN 12.9 g/dl (12.0-15.5); LYMPH # 1.7 10^3/uL (1.5-5.0); LYMPH % 26.1 % (24.0-44.0); MEAN CORPUSCULAR HEMOGLOBIN 31.8 pg (27.0-33.0); MEAN CORPUSCULAR HGB CONC 33.9 g/dl (32.0-36.5); MEAN CORPUSCULAR VOLUME 93.6 fl (80.0-96.0); MONO # 0.5 10^3/uL (0.0-0.8); MONO % 7.7 % (0.0-5.0); NEUTROPHILS # 4.2 10^3/uL (1.5-8.5); NEUTROPHILS % 64.2 % (36.0-66.0); PLATELET COUNT, AUTOMATED 297 10^3/uL (150-450); RED BLOOD COUNT 4.06 10^6/uL (4.00-5.40); WHITE BLOOD COUNT 6.5 10^3/uL (4.0-10.0)
[2019-08-16 00:48] LABS: BILIRUBIN,DIRECT 0.2 MG/DL (0.0-0.2); BILIRUBIN,TOTAL 0.7 MG/DL (0.2-1.0); TOTAL PROTEIN 7.4 GM/DL (6.4-8.2)
[2019-08-16 01:13] LABS: INFLUENZA A AMPLIFICATION NEGATIVE (NEGATIVE); INFLUENZA B AMPLIFICATION NEGATIVE (NEGATIVE)
[2019-08-16] MEDS ORDERED: NITROFURANTOIN (MACROBID) 100 MG CAP PO ONE (01:45)
[2019-08-16] MEDS ORDERED: MACR100C43 PO (01:45)
[2019-08-16] MEDS ORDERED: REGL10TA6 PO (01:45)
[2019-08-16 01:53] LABS: AMPHETAMINES LEVEL URINE POSITIVE (NEGATIVE); BARBITURATES URINE NEGATIVE (NEGATIVE); BENZODIAZEPINES URINE NEGATIVE (NEGATIVE); CANNABINOIDS URINE NEGATIVE (NEGATIVE); COCAINE METABOLITE URINE NEGATIVE (NEGATIVE); METHADONE URINE NEGATIVE (NEGATIVE); OPIATES URINE NEGATIVE (NEGATIVE); PHENCYCLIDINE URINE NEGATIVE (NEGATIVE)
[2019-08-16 02:10] VITALS: BP 131/69
--- NOTE | 2019-08-16 10:44 | REP ---
Emergency first trimester obstetric sonography: Repeat dictation. History: Abdominal pain. . Preliminary report is provided at the time of exam by [facility]. Findings: Transabdominal scanning confirms the presence of a single living intrauterine gestation in a free-floating lie. Timblin-rump length of the embryonic pole is 22 mm which corresponds to a gestational age estimate of 8 weeks 6 days. heart rate is recorded at 163 beats per minute. No subchorionic hemorrhage is seen. No extrauterine abnormalities observed. Impression: Viable single intrauterine gestation 8 weeks 6 days by crown-rump length. REBECA by today's sonography March 20, 2020. No complication is identified. Electronically Signed by Franco Dyer MD 08/16/2019 10:36 A
== END 2019-08-16 02:17 | disposition home or self-care (01) ==
LOC: M ED 23:04
DX: O23.41 Unspecified infection of urinary tract in pregnancy, first trimester (principal); O99.331 Smoking (tobacco) complicating pregnancy, first trimester; O99.341 Other mental disorders complicating pregnancy, first trimester; O99.511 Diseases of the respiratory system complicating pregnancy, first trimester; O99.351 Diseases of the nervous system complicating pregnancy, first trimester; O99.321 Drug use complicating pregnancy, first trimester; Z3A.08 8 weeks gestation of pregnancy; Z79.899 Other long term (current) drug therapy; Z88.2 Allergy status to sulfonamides; Z91.89 Other specified personal risk factors, not elsewhere classified; Z91.030 Bee allergy status

== ENCOUNTER 2019-09-09 02:27 | Outpatient (CLI) | payer MEDICAID ==
[~2019-09-09] VITALS: Ht 157.5 cm; Wt 50.7 kg
[~2019-09-09 02:27] MED LIST changes: +REGL10TA6 PO
[2019-09-09 02:50] VITALS: BP 132/83
== END 2019-09-09 03:00 | disposition other institution (70) ==
LOC: M LDO 02:27 → EEVIPCON 02:27 → M LDO 03:00
PROVIDERS: ATTEND Obstetrics & Gynecology
DX: O26.852 Spotting complicating pregnancy, second trimester (principal); Z3A.00 Weeks of gestation of pregnancy not specified

== ENCOUNTER 2019-10-16 17:43 | Emergency (ER) | payer MEDICAID ==
[~2019-10-16] VITALS: Ht 157.5 cm; Wt 51.9 kg
[2019-10-16] MEDS ORDERED: ONDANSETRON 4 MG ORAL DISINTEGRATING TAB PO ONE (18:15)
[2019-10-16 18:45] VITALS: BP 107/65
[2019-10-16 18:52] LABS: BASO % 0.3 % (0.0-1.0); EOS # 0.1 10^3/uL (0.0-0.5); EOS % 1.5 % (0.0-3.0); HEMATOCRIT 33.1 % (36.0-47.0); HEMOGLOBIN 11.2 g/dl (12.0-15.5); LYMPH # 1.4 10^3/uL (1.5-5.0); LYMPH % 21.4 % (24.0-44.0); MEAN CORPUSCULAR HEMOGLOBIN 31.4 pg (27.0-33.0); MEAN CORPUSCULAR HGB CONC 33.8 g/dl (32.0-36.5); MEAN CORPUSCULAR VOLUME 92.7 fl (80.0-96.0); MONO # 0.5 10^3/uL (0.0-0.8); MONO % 7.6 % (0.0-5.0); NEUTROPHILS # 4.6 10^3/uL (1.5-8.5); NEUTROPHILS % 68.9 % (36.0-66.0); PLATELET COUNT, AUTOMATED 281 10^3/uL (150-450); RED BLOOD COUNT 3.57 10^6/uL (4.00-5.40); WHITE BLOOD COUNT 6.7 10^3/uL (4.0-10.0)
[2019-10-16 19:01] LABS: AMPHETAMINES LEVEL URINE POSITIVE (NEGATIVE); BARBITURATES URINE NEGATIVE (NEGATIVE); BENZODIAZEPINES URINE NEGATIVE (NEGATIVE); CANNABINOIDS URINE NEGATIVE (NEGATIVE); COCAINE METABOLITE URINE NEGATIVE (NEGATIVE); METHADONE URINE NEGATIVE (NEGATIVE); OPIATES URINE NEGATIVE (NEGATIVE); PHENCYCLIDINE URINE NEGATIVE (NEGATIVE)
[2019-10-16 19:32] LABS: ALBUMIN 2.9 GM/DL (3.2-5.2); ALT/SGPT 131 U/L (12-78); BILIRUBIN,DIRECT 0.3 MG/DL (0.0-0.2); BILIRUBIN,TOTAL 1.1 MG/DL (0.2-1.0); BLOOD UREA NITROGEN 2 MG/DL (7-18); CALCIUM LEVEL 8.6 MG/DL (8.5-10.1); CARBON DIOXIDE LEVEL 24 MEQ/L (21-32); CHLORIDE LEVEL 107 MEQ/L (98-107); ETHYL ALCOHOL (ETHANOL) < 0.003 % (0.000-0.010); GLOMERULAR FILTRATION RATE > 60.0 (>60); GLUCOSE, FASTING 74 MG/DL (70-100); HCG, SERUM QUANTITATIVE 23139 MIU/ML; LIPASE 49 U/L (73-393); POTASSIUM SERUM 3.4 MEQ/L (3.5-5.1); SODIUM LEVEL 139 MEQ/L (136-145); TOTAL PROTEIN 6.3 GM/DL (6.4-8.2)
--- NOTE | 2019-10-17 04:52 | REP ---
Clinical: Known with pain Comparison: 08/15/2019 . Findings: Examination demonstrates a single live intrauterine in cephalic presentation. motion is identified by technologist. Placenta is noted anterior and grade zero without evidence for placenta previa or abruption. Amniotic fluid volume is normal. Cervix measures 4.0 cm in length and appears closed. No evidence for nuchal cord. Gestational age by LMP 17 weeks 1 day with REBECA 03/24/2020 . Gestational age by current measurements 17 weeks 4 days with REBECA 03/21/2020 . FHR equals 158 beats per minute. Estimated weight 191 grams ( 55th percentile). Anatomical assessment demonstrates normal structures including cranium, choroid plexus, cavum, cerebellum/posterior fossa, lungs, stomach, cord insertion/three-vessel cord, kidneys/bladder, spine, and extremities. Impression: Single live intrauterine in cephalic presentation demonstrating appropriate interval growth. No gross abnormalities are identified. Limited evaluation of the facial features and heart/ventricular outflow tracts. Remainder of the anatomical assessment appears normal. Electronically Signed by Woodrow Guevara MD 10/17/2019 04:43 A
== END 2019-10-16 19:10 | disposition left against medical advice (07) ==
LOC: M ED 17:43
DX: O99.322 Drug use complicating pregnancy, second trimester (principal); R10.2 Pelvic and perineal pain; F19.10 Other psychoactive substance abuse, uncomplicated; O16.2 Unspecified maternal hypertension, second trimester; O99.342 Other mental disorders complicating pregnancy, second trimester; F90.9 Attention-deficit hyperactivity disorder, unspecified type; O99.332 Smoking (tobacco) complicating pregnancy, second trimester; F17.210 Nicotine dependence, cigarettes, uncomplicated; Z88.2 Allergy status to sulfonamides; Z91.030 Bee allergy status; Z91.048 Other nonmedicinal substance allergy status; Z3A.17 17 weeks gestation of pregnancy
CPT/HCPCS: 36415; 76811; 80048; 80076; 80307; 81001; 83690; 84702; 85025; 99284; G0480; Q0162

== ENCOUNTER → 2020-01-18 | Emergency (ER) | payer MEDICAID ==
[~2020-01-18] MED LIST changes: +DOCU100C16; +OXYC1TAB23
== END | disposition home or self-care (01) ==
LOC: M ED 19:24
DX: R11.0 Nausea (principal); Z53.21 Procedure and treatment not carried out due to patient leaving prior to being seen by health care provider

== ENCOUNTER 2020-03-11 03:23 | Emergency (ER) | payer MEDICAID ==
[~2020-03-11] VITALS: Ht 157.5 cm; Wt 57.0 kg
[~2020-03-11 03:23] MED LIST changes: -DOCU100C16; -OXYC1TAB23
[2020-03-11] MEDS ORDERED: DOCU100C16 (03:35)
[2020-03-11] MEDS ORDERED: OXYC1TAB23 (03:35)
[2020-03-11] MEDS ORDERED: NORCO 5/325MG TABLET (BULK FOR ED) PO ONE (06:30)
[2020-03-11 07:03] VITALS: BP 123/58
== END 2020-03-11 07:05 | disposition home or self-care (01) ==
LOC: M ED 03:23
DX: G89.18 Other acute postprocedural pain (principal); F19.10 Other psychoactive substance abuse, uncomplicated; F41.9 Anxiety disorder, unspecified; F32.9 Major depressive disorder, single episode, unspecified; F17.200 Nicotine dependence, unspecified, uncomplicated; Z79.899 Other long term (current) drug therapy; Z88.2 Allergy status to sulfonamides; Z91.89 Other specified personal risk factors, not elsewhere classified; Z91.030 Bee allergy status

== ENCOUNTER 2020-05-06 14:17 | Emergency (ER) | payer MEDICAID, OTHER, SELFPAY ==
[~2020-05-06] VITALS: Ht 157.5 cm; Wt 46.9 kg
[~2020-05-06 14:17] MED LIST changes: +DOCU100C16; +OXYC1TAB23
[2020-05-06 14:18] VITALS: BP 127/80
== END 2020-05-06 14:59 | disposition left against medical advice (07) ==
LOC: M ED 14:17
DX: Z53.21 Procedure and treatment not carried out due to patient leaving prior to being seen by health care provider (principal)

== ENCOUNTER 2020-12-09 06:10 | Emergency (ER) | payer MEDICAID ==
[~2020-12-09 06:10] MED LIST changes: +ACET-683 PO; -CLIN150C14 PO; +CLIN150C15 PO; +DOCU100C16 PO; +PREN29CH2 PO; +PRENMIS3 PO
[2020-12-09] MEDS ORDERED: ACETAMINOPHEN 500 MG TAB PO ONE (07:20)
--- NOTE | 2020-12-09 09:12 | REP ---
INDICATION: left FP COMPARISON: No prior CT abdomen pelvis.. TECHNIQUE: Helical scanning is acquired and 3 mm axial images were reformatted. Coronal and sagittal MPR images were generated and reviewed. FINDINGS: Digital preliminary terrazzo tile maker radiograph is unremarkable. The lung bases are clear on axial CT images. There is no evidence of pleural effusion or upper abdominal ascites. The liver and spleen are normal in size homogeneous in texture. No focal hepatic lesion is seen. No adrenal mass is observed. No abnormality is noted in the gallbladder or the pancreas. There is no evidence of intrarenal calculus on either side. No hydronephrosis is seen. Kidneys are morphologically intact. No ureteral or bladder calculus is seen. Pelvic images demonstrate a vaginal tampon. No uterine or right ovarian abnormality is observed. In the left ovary, there is a 3.2 cm low density area consistent with a cyst. Physiologic quantity fluid seen in the cul-de-sac. The urinary bladder is intact. Normal air-filled appendix is seen in the right mid pelvis. There is no evidence of free intraperitoneal air or abnormal fluid collection. No gastrointestinal obstructive lesion is seen. IMPRESSION: 3.2 cm cyst in left ovary. Physiologic quantity of fluid in the cul-de-sac. No urinary tract calculus is seen. Otherwise negative CT study abdomen and pelvis. Normal appendix. <Electronically signed by José Miguel Dyer > 12/09/20 [id number]
[2020-12-09 10:20] VITALS: BP 116/78
== END 2020-12-09 10:23 | disposition home or self-care (01) ==
LOC: M ED 06:10
DX: N83.202 Unspecified ovarian cyst, left side (principal); J45.909 Unspecified asthma, uncomplicated; R56.9 Unspecified convulsions; F17.200 Nicotine dependence, unspecified, uncomplicated; Z79.899 Other long term (current) drug therapy; Z88.2 Allergy status to sulfonamides; Z91.89 Other specified personal risk factors, not elsewhere classified; Z91.030 Bee allergy status; Z88.8 Allergy status to other drugs, medicaments and biological substances

== ENCOUNTER 2021-01-08 21:30 | Emergency (ER) | payer MEDICAID ==
[~2021-01-08] VITALS: Ht 157.5 cm; Wt 54.5 kg
[2021-01-09 00:17] LABS: HEMATOCRIT 37.1 % (36.0-47.0); HEMOGLOBIN 12.5 g/dl (12.0-15.5); MEAN CORPUSCULAR HEMOGLOBIN 30.6 pg (27.0-33.0); MEAN CORPUSCULAR HGB CONC 33.7 g/dl (32.0-36.5); MEAN CORPUSCULAR VOLUME 90.7 fl (80.0-96.0); PLATELET COUNT, AUTOMATED 270 10^3/uL (150-450); RED BLOOD COUNT 4.09 10^6/uL (4.00-5.40)
[2021-01-09 00:31] LABS: AMPHETAMINES LEVEL URINE NEGATIVE (NEGATIVE); BARBITURATES URINE NEGATIVE (NEGATIVE); BENZODIAZEPINES URINE NEGATIVE (NEGATIVE); CANNABINOIDS URINE NEGATIVE (NEGATIVE); COCAINE METABOLITE URINE NEGATIVE (NEGATIVE); METHADONE URINE NEGATIVE (NEGATIVE); OPIATES URINE NEGATIVE (NEGATIVE); PHENCYCLIDINE URINE NEGATIVE (NEGATIVE)
[2021-01-09 00:41] LABS: ACETAMINOPHEN LEVEL < 2.0 UG/ML (10.0-30.0); ALBUMIN 3.7 GM/DL (3.2-5.2); ALT/SGPT 16 U/L (12-78); BILIRUBIN,DIRECT 0.2 MG/DL (0.0-0.2); BILIRUBIN,TOTAL 0.5 MG/DL (0.2-1.0); BLOOD UREA NITROGEN 5 MG/DL (7-18); CALCIUM LEVEL 8.6 MG/DL (8.5-10.1); CARBON DIOXIDE LEVEL 26 MEQ/L (21-32); CHLORIDE LEVEL 108 MEQ/L (98-107); GLOMERULAR FILTRATION RATE > 60.0 (>60); GLUCOSE, FASTING 101 MG/DL (70-100); POTASSIUM SERUM 3.8 MEQ/L (3.5-5.1); SALICYLATE LEVEL < 1.7 MG/DL (5.0-30.0); SODIUM LEVEL 140 MEQ/L (136-145); THYROID STIMULATING HORMONE 0.111 uIU/ML (0.358-3.740); TOTAL PROTEIN 6.8 GM/DL (6.4-8.2)
[2021-01-09 00:42] LABS: ETHYL ALCOHOL (ETHANOL) < 0.003 % (0.000-0.010)
[2021-01-09 00:49] LABS: HCG, SERUM QUALITATIVE POSITIVE (NEGATIVE)
[2021-01-09] MEDS ORDERED: RHOGAM 300 MCG (1500 IU) INJ (J2790) IM ONE (04:15)
[2021-01-09 05:09] VITALS: BP 109/55
--- NOTE | 2021-01-11 08:21 | REP ---
INDICATION: preg eval for IUP. Repeat dictation. Preliminary report is provided at the time of the exam by corine PARRA. COMPARISON: None. TECHNIQUE: Transabdominal obstetric sonography. FINDINGS: Scanning through the urine filled bladder and gravid uterus demonstrates a single living intrauterine gestation in a free-floating lie. The crown-rump length of the embryonic pole is 12 mm. This corresponds with a gestational age estimate of 7 weeks 3 days. heart rate is recorded during the examination at 153 beats per minute. A small subchorionic fluid collection is seen consistent with subchorionic hemorrhage. This measures 1.3 x 1.2 x 3.6 cm. No extra uterine abnormality is observed. IMPRESSION: Single living intrauterine gestation at 7 weeks 3 days by crown-rump length. REBECA by sonography August 25, 2021. Small subchorionic hemorrhage. <Electronically signed by José Miguel Dyer > 01/11/21 0818
== END 2021-01-09 05:11 | disposition home or self-care (01) ==
LOC: M ED 21:30
DX: Z04.6 Encounter for general psychiatric examination, requested by authority (principal); O20.8 Other hemorrhage in early pregnancy; O99.511 Diseases of the respiratory system complicating pregnancy, first trimester; J45.909 Unspecified asthma, uncomplicated; O99.341 Other mental disorders complicating pregnancy, first trimester; F33.9 Major depressive disorder, recurrent, unspecified; O99.321 Drug use complicating pregnancy, first trimester; F15.10 Other stimulant abuse, uncomplicated; Z3A.01 Less than 8 weeks gestation of pregnancy; Z88.1 Allergy status to other antibiotic agents; Z88.2 Allergy status to sulfonamides; Z88.8 Allergy status to other drugs, medicaments and biological substances; Z91.030 Bee allergy status; Z91.048 Other nonmedicinal substance allergy status
CPT/HCPCS: 36415; 76801; 80048; 80076; 80143; 80307; 82077; 84443; 84703; 85027; 96372; 99284; J2790

== ENCOUNTER 2021-02-06 06:55 | Emergency (ER) | payer MEDICAID ==
[~2021-02-06] VITALS: Ht 157.5 cm; Wt 52.7 kg
[~2021-02-06 06:55] MED LIST changes: -CLIN150C15 PO; +CLIN150C17 PO
[2021-02-06 06:56] VITALS: BP 111/73
[2021-02-06 08:22] LABS: BASO % 0.6 % (0.0-1.0); EOS % 0.6 % (0.0-3.0); HEMATOCRIT 32.5 % (36.0-47.0); HEMOGLOBIN 11.2 g/dl (12.0-15.5); LYMPH # 1.7 10^3/uL (1.5-5.0); LYMPH % 33.1 % (24.0-44.0); MEAN CORPUSCULAR HEMOGLOBIN 30.9 pg (27.0-33.0); MEAN CORPUSCULAR HGB CONC 34.5 g/dl (32.0-36.5); MEAN CORPUSCULAR VOLUME 89.8 fl (80.0-96.0); MONO # 0.3 10^3/uL (0.0-0.8); MONO % 5.6 % (2.0-8.0); NEUTROPHILS # 3.1 10^3/uL (1.5-8.5); NEUTROPHILS % 59.7 % (36.0-66.0); PLATELET COUNT, AUTOMATED 314 10^3/uL (150-450); RED BLOOD COUNT 3.62 10^6/uL (4.00-5.40); WHITE BLOOD COUNT 5.1 10^3/uL (4.0-10.0)
[2021-02-06 09:08] LABS: BLOOD UREA NITROGEN 7 MG/DL (7-18); CALCIUM LEVEL 8.4 MG/DL (8.5-10.1); CARBON DIOXIDE LEVEL 19 MEQ/L (21-32); CHLORIDE LEVEL 110 MEQ/L (98-107); CREATININE FOR GFR 0.44 MG/DL (0.55-1.30); GLOMERULAR FILTRATION RATE > 60.0 (>60); GLUCOSE, FASTING 81 MG/DL (70-100); SODIUM LEVEL 137 MEQ/L (136-145)
== END 2021-02-06 10:08 | disposition left against medical advice (07) ==
LOC: M ED 06:55
DX: Z53.29 Procedure and treatment not carried out because of patient's decision for other reasons (principal)

== ENCOUNTER → 2021-03-25 | Outpatient (REF) | payer MEDICAID ==
[2021-03-25 14:50] LABS: CREATININE,RANDOM URINE 44.5 MG/DL; TOTAL PROTEIN,RANDOM URINE 16.3 MG/DL (0.0-12.0)
[2021-03-25 15:49] LABS: GC DNA AMPLIFICATION NEGATIVE (NEGATIVE)
== END ==
LOC: M SFHCWAGY 13:05
PROVIDERS: ATTEND Advanced Practice Midwife
DX: Z36.89 Encounter for other specified antenatal screening (principal); Z3A.18 18 weeks gestation of pregnancy

== ENCOUNTER → 2021-03-26 | Outpatient (CLI) | payer OTHER ==
[2021-03-26 13:10] LABS: HEMATOCRIT 33.8 % (36.0-47.0); HEMOGLOBIN 11.1 g/dl (12.0-15.5); MEAN CORPUSCULAR HEMOGLOBIN 31.4 pg (27.0-33.0); MEAN CORPUSCULAR HGB CONC 32.8 g/dl (32.0-36.5); MEAN CORPUSCULAR VOLUME 95.8 fl (80.0-96.0); PLATELET COUNT, AUTOMATED 220 10^3/uL (150-450); RED BLOOD COUNT 3.53 10^6/uL (4.00-5.40); WHITE BLOOD COUNT 5.8 10^3/uL (4.0-10.0)
[2021-03-26 15:06] LABS: GC DNA AMPLIFICATION NEGATIVE (NEGATIVE)
[2021-03-26 15:12] LABS: ALBUMIN 2.9 GM/DL (3.2-5.2); ALT/SGPT 29 U/L (12-78); BILIRUBIN,TOTAL 0.4 MG/DL (0.2-1.0); BLOOD UREA NITROGEN 8 MG/DL (7-18); CARBON DIOXIDE LEVEL 22 MEQ/L (21-32); CHLORIDE LEVEL 108 MEQ/L (98-107); GLOMERULAR FILTRATION RATE > 60.0 (>60); GLUCOSE, FASTING 69 MG/DL (70-100); LDH LACTATE DEHYDROGENASE 193 U/L (84-246); POTASSIUM SERUM 4.3 MEQ/L (3.5-5.1); SODIUM LEVEL 138 MEQ/L (136-145); TOTAL PROTEIN 6.8 GM/DL (6.4-8.2); URIC ACID 2.9 MG/DL (2.6-6.0)
[2021-03-26 15:25] LABS: HEPATITIS B SURFACE ANTIBODY POSITIVE (POSITIVE)
[2021-03-26 15:36] LABS: HEPATITIS B SURFACE ANTIGEN NEGATIVE (NEGATIVE)
[2021-03-26 15:57] LABS: CREATININE,RANDOM URINE 44.1 MG/DL; TOTAL PROTEIN,RANDOM URINE 18.5 MG/DL (0.0-12.0)
[2021-03-26 16:04] LABS: HIV 1&2 SCREEN CENTAUR NEGATIVE (NEGATIVE)
[2021-03-26 16:12] LABS: HEPATITIS C VIRUS ABY INDEX > 11.0 INDEX (<0.8)
[2021-03-30 04:09] LABS: HEPATITIS A IgG TOTAL Positive (Negative); HEPATITIS B CORE ANTIBODY IGG Negative (Negative); HEPATITIS C QUANTITATION HCV Not Detected IU/mL (.)
== END ==
LOC: M WUC 11:11
PROVIDERS: ATTEND Advanced Practice Midwife
DX: Z36.89 Encounter for other specified antenatal screening (principal); Z3A.18 18 weeks gestation of pregnancy

== ENCOUNTER → 2021-04-05 | Outpatient (CLI) | payer MEDICAID, OTHER ==
--- NOTE | 2021-04-05 20:26 | REP ---
INDICATION: 18 WKS GESTATION OF PREG PT IN CT HOLDING AREA COMPARISON: None. TECHNIQUE: Transabdominal obstetrical ultrasound with color Doppler evaluation. FINDINGS: Examination demonstrates a single live intrauterine in variable presentation. motion is identified by technologist. Placenta is noted posterior and grade 0. There is no evidence for previa and the placental tip is 2.3 cm from the closed internal os. Amniotic fluid volume is normal. Cervix measures 3.8 cm in length and appears closed.. Selected gestational age: 19 weeks 5 days with REBECA 08/25/2021. Gestational age by current measurements 19 weeks 1 day with REBECA 08/29/2021. FHR equals 168 beats per minute. BPD: 4.3 cm at 18 weeks 6 days HC: 16.4 cm at 19 weeks 1 day AC: 14.2 cm at 19 weeks 4 days FL: 3.0 cm at 19 weeks 3 days HL: 2.8 cm at 19 weeks 0 days HC/AC: 1.15 Estimated weight 292 grams (5th percentile). Anatomical assessment demonstrates normal structures including cranium, choroid plexus, cavum, cerebellum/posterior fossa, facial features, lungs, four-chamber heart/ventricular outflow tracts, diaphragm, stomach, cord insertion/three-vessel cord, kidneys/bladder, spine, and extremities. IMPRESSION: Single live intrauterine in variable presentation. Anatomical assessment is complete and normal. Placental tip 2.3 cm from the closed internal os. <Electronically signed by Woodrow Guevara > 04/05/212021
== END ==
LOC: M RAD 12:49
PROVIDERS: ATTEND Advanced Practice Midwife
DX: Z36.89 Encounter for other specified antenatal screening (principal); Z3A.19 19 weeks gestation of pregnancy

== ENCOUNTER 2021-05-27 22:19 | Outpatient (CLI) | payer MEDICAID, OTHER, SELFPAY ==
[~2021-05-27] VITALS: Ht 157.5 cm; Wt 67.6 kg
[2021-05-27 22:41] VITALS: BP 119/78
[2021-05-27] MEDS ORDERED: PRENTAB9 PO (22:48)
[2021-05-27] MEDS ORDERED: DIPH50CA PO (22:48)
[2021-05-27 23:41] LABS: APPEARANCE, URINE CLEAR (CLEAR); BACTERIA, URINE AUTO 1+ (NEGATIVE); BILIRUBIN, URINE AUTO NEGATIVE (NEGATIVE); BLOOD, URINE BLOOD NEGATIVE (NEGATIVE); COLOR, URINE YELLOW (YELLOW); GLUCOSE, URINE (UA) AUTO NEGATIVE (NEGATIVE); KETONE, URINE AUTO NEGATIVE (NEGATIVE); LEUKOCYTE ESTERASE, URINE AUTO NEGATIVE (NEGATIVE); NITRITE, URINE AUTO NEGATIVE (NEGATIVE); PROTEIN, URINE AUTO NEGATIVE (NEGATIVE); RBC, URINE AUTO 0 /HPF (0-3); SPECIFIC GRAVITY URINE AUTO 1.009 (1.002-1.035); SQUAMOUS EPITHELIAL CELL UR AU 0 /HPF (0-6); UROBILINOGEN, URINE AUTO 0.2 mg/dL (0.0-2.0); WBC, URINE AUTO 0 /HPF (0-3)
[2021-05-27 23:56] VITALS: BP 119/72
[2021-05-28 01:03] LABS: GC DNA AMPLIFICATION NEGATIVE (NEGATIVE)
== END 2021-05-28 00:09 | disposition home or self-care (01) ==
LOC: M LDO 22:19
PROVIDERS: ATTEND Specialist
DX: O26.892 Other specified pregnancy related conditions, second trimester (principal); R10.30 Lower abdominal pain, unspecified; Z3A.27 27 weeks gestation of pregnancy
CPT/HCPCS: 59025; 81001; 87491; 87591; G0378; G0463

== ENCOUNTER 2021-06-23 16:39 | Outpatient (CLI) | payer MEDICAID, SELFPAY ==
[~2021-06-23] VITALS: Ht 157.5 cm; Wt 69.4 kg
[~2021-06-23 16:39] MED LIST changes: +DIPH50CA PO
[2021-06-23 17:00] VITALS: BP 122/83
[2021-06-23] MEDS ORDERED: HOME MED LIST COMPLETE! XX SCH (18:45)
[2021-06-23 18:51] LABS: APPEARANCE, URINE CLOUDY (CLEAR); BACTERIA, URINE AUTO 3+ (NEGATIVE); BILIRUBIN, URINE AUTO NEGATIVE (NEGATIVE); BLOOD, URINE BLOOD NEGATIVE (NEGATIVE); COLOR, URINE YELLOW (YELLOW); GLUCOSE, URINE (UA) AUTO NEGATIVE (NEGATIVE); KETONE, URINE AUTO NEGATIVE (NEGATIVE); LEUKOCYTE ESTERASE, URINE AUTO 2+ (NEGATIVE); MUCUS, URINE SMALL (NEGATIVE); NITRITE, URINE AUTO NEGATIVE (NEGATIVE); PROTEIN, URINE AUTO NEGATIVE (NEGATIVE); RBC, URINE AUTO 2 /HPF (0-3); SPECIFIC GRAVITY URINE AUTO 1.012 (1.002-1.035); SQUAMOUS EPITHELIAL CELL UR AU 20 /HPF (0-6); UROBILINOGEN, URINE AUTO 0.2 mg/dL (0.0-2.0); WBC, URINE AUTO 9 /HPF (0-3)
== END 2021-06-23 19:41 | disposition home or self-care (01) ==
LOC: M LDO 16:39
PROVIDERS: ATTEND Advanced Practice Midwife
DX: O26.893 Other specified pregnancy related conditions, third trimester (principal); R10.2 Pelvic and perineal pain; O99.323 Drug use complicating pregnancy, third trimester; F19.11 Other psychoactive substance abuse, in remission; O09.33 Supervision of pregnancy with insufficient antenatal care, third trimester; O34.219 Maternal care for unspecified type scar from previous cesarean delivery; Z87.59 Personal history of other complications of pregnancy, childbirth and the puerperium; Z3A.31 31 weeks gestation of pregnancy

== ENCOUNTER 2021-07-30 20:52 | Inpatient (IN) | payer MEDICAID, SELFPAY ==
[~2021-07-30] VITALS: Ht 157.5 cm; Wt 64.0 kg
[2021-07-30 21:11] VITALS: BP 98/59
[2021-07-30] MEDS ORDERED: LACTATED RINGER'S 1000 ML IV ONE (21:55)
[2021-07-30 22:29] LABS: APPEARANCE, URINE CLOUDY (CLEAR); BACTERIA, URINE AUTO 3+ (NEGATIVE); BILIRUBIN, URINE AUTO 1+ (NEGATIVE); BLOOD, URINE BLOOD NEGATIVE (NEGATIVE); COLOR, URINE AMBER (YELLOW); GLUCOSE, URINE (UA) AUTO NEGATIVE (NEGATIVE); KETONE, URINE AUTO 1+ mg/dL (NEGATIVE); LEUKOCYTE ESTERASE, URINE AUTO 2+ (NEGATIVE); MUCUS, URINE LARGE (NEGATIVE); NITRITE, URINE AUTO NEGATIVE (NEGATIVE); PROTEIN, URINE AUTO 2+ mg/dL (NEGATIVE); RBC, URINE AUTO 29 /HPF (0-3); SPECIFIC GRAVITY URINE AUTO 1.026 (1.002-1.035); SQUAMOUS EPITHELIAL CELL UR AU 27 /HPF (0-6); TRANSITIONAL EPITHELIAL AUTO 8 /HPF; WBC, URINE AUTO TNTC /HPF (0-3)
[2021-07-30 22:44] LABS: BARBITURATES URINE REFLEX NEGATIVE (NEGATIVE); BENZODIAZEPINES URINE REFLEX NEGATIVE (NEGATIVE); CANNABINOIDS URINE REFLEX NEGATIVE (NEGATIVE); COCAINE METABOLITE URINE REFLE NEGATIVE (NEGATIVE); METHADONE URINE REFLEX NEGATIVE (NEGATIVE); OPIATES URINE REFLEX NEGATIVE (NEGATIVE); PHENCYCLIDINE URINE REFLEX NEGATIVE (NEGATIVE)
[2021-07-30 22:45] LABS: AMPHETAMINES URINE REFLEX PENDING CONFIRMATION (NEGATIVE)
[2021-07-30 22:51] LABS: HEMATOCRIT 34.6 % (36.0-47.0); HEMOGLOBIN 11.2 g/dl (12.0-15.5); MEAN CORPUSCULAR HEMOGLOBIN 31.5 pg (27.0-33.0); MEAN CORPUSCULAR HGB CONC 32.4 g/dl (32.0-36.5); MEAN CORPUSCULAR VOLUME 97.2 fl (80.0-96.0); PLATELET COUNT, AUTOMATED 212 10^3/uL (150-450); RED BLOOD COUNT 3.56 10^6/uL (4.00-5.40); WHITE BLOOD COUNT 12.2 10^3/uL (4.0-10.0)
[2021-07-30 23:48] LABS: GC DNA AMPLIFICATION NEGATIVE (NEGATIVE)
[2021-07-31] VITALS (8 sets, daily range): BP systolic 75–111; BP diastolic 42–66
[2021-07-31] MEDS ORDERED: diphenhydrAMINE 25MG CAP PO ONE (02:00)
[2021-07-31] MEDS: BETAMETHASONE SOLUSPAN 6MG/ML 5ML VIAL (J0702 PER 3MG) IM SCH (02:10)
[2021-07-31] MEDS: ACETAMINOPHEN 500 MG TAB PO PRN ×2 (02:10→10:18)
[2021-07-31] MEDS: LR 1,000 ML IV SCH ×2 (02:10→09:50)
[2021-07-31 03:05] LABS: ALBUMIN 2.7 GM/DL (3.2-5.2); BLOOD UREA NITROGEN 14 MG/DL (7-18); CALCIUM LEVEL 8.3 MG/DL (8.5-10.1); CARBON DIOXIDE LEVEL 18 MEQ/L (21-32); CHLORIDE LEVEL 104 MEQ/L (98-107); CREATININE FOR GFR 0.88 MG/DL (0.55-1.30); GLOMERULAR FILTRATION RATE > 60.0 (>60); GLUCOSE, FASTING 88 MG/DL (70-100); PHOSPHORUS LEVEL 3.6 MG/DL (2.5-4.9); SODIUM LEVEL 133 MEQ/L (136-145)
[2021-07-31] MEDS ORDERED: RHOGAM 300 MCG (1500 IU) INJ (J2790) IM ONE (17:55)
[2021-08-01 02:00] VITALS: BP 103/60
[2021-08-01] MEDS: BETAMETHASONE SOLUSPAN 6MG/ML 5ML VIAL (J0702 PER 3MG) IM SCH (02:10)
[2021-08-01 06:00] VITALS: BP 102/55
[2021-08-01 10:00] VITALS: BP 114/58
[2021-08-01 11:34] VITALS: BP 129/62
[2021-08-01 14:00] VITALS: BP 113/65
[2021-08-01] MEDS: ACETAMINOPHEN 500 MG TAB PO PRN (14:58)
== END 2021-08-01 17:05 | disposition home or self-care (01) | DRG 566 ==
LOC: M LDO 20:52 → M LDI 07-31 01:30 → M OBS 07-31 12:15
PROVIDERS: ADMIT Advanced Practice Midwife; ATTEND Specialist
DX: O41.03X0 Oligohydramnios, third trimester, not applicable or unspecified (principal); O98.413 Viral hepatitis complicating pregnancy, third trimester; O99.323 Drug use complicating pregnancy, third trimester; O34.211 Maternal care for low transverse scar from previous cesarean delivery; O36.8330 Maternal care for abnormalities of the fetal heart rate or rhythm, third trimester, not applicable or unspecified; O99.513 Diseases of the respiratory system complicating pregnancy, third trimester; J45.909 Unspecified asthma, uncomplicated; O99.343 Other mental disorders complicating pregnancy, third trimester; F31.9 Bipolar disorder, unspecified; F41.9 Anxiety disorder, unspecified; F43.10 Post-traumatic stress disorder, unspecified; Z91.19 Patient's noncompliance with other medical treatment and regimen; F15.10 Other stimulant abuse, uncomplicated; B15.9 Hepatitis A without hepatic coma; F17.290 Nicotine dependence, other tobacco product, uncomplicated; O99.333 Smoking (tobacco) complicating pregnancy, third trimester; Z3A.36 36 weeks gestation of pregnancy

== ENCOUNTER 2021-08-03 07:30 | Inpatient (IN) | payer MEDICAID, OTHER ==
[~2021-08-03] VITALS: Ht 157.5 cm; Wt 70.6 kg
[2021-08-03 21:51] VITALS: BP 114/67
[2021-08-03] MEDS ORDERED: ceFAZolin SOD 2 GM in IV 1 EA IV ONE (21:55)
[2021-08-03] MEDS ORDERED: TRANEXAMIC ACID INJection 1,000 MG in NS 100 ML IV PRN (21:55)
[2021-08-03] MEDS ORDERED: OXYTOCIN DRIP 30 UNITS in IV 1 EA IV PRN (21:55)
[2021-08-03] MEDS ORDERED: BICITRA 30ML SOLN UDC PO ONE (21:55)
[2021-08-03] MEDS ORDERED: LR 1,000 ML IV SCH (21:55)
[2021-08-03] MEDS ORDERED: METHYLERGONOVINE MALEATE 0.2 MG/ML VIAL (J2210) IM PRN (21:55)
[2021-08-03] MEDS ORDERED: CARBOPROST TROMETHAMINE 250 MCG/ML AMP IM PRN (21:55)
[2021-08-03 23:09] LABS: HEMATOCRIT 30.5 % (36.0-47.0); MEAN CORPUSCULAR HEMOGLOBIN 31.6 pg (27.0-33.0); MEAN CORPUSCULAR HGB CONC 32.8 g/dl (32.0-36.5); MEAN CORPUSCULAR VOLUME 96.5 fl (80.0-96.0); PLATELET COUNT, AUTOMATED 241 10^3/uL (150-450); RED BLOOD COUNT 3.16 10^6/uL (4.00-5.40); WHITE BLOOD COUNT 7.6 10^3/uL (4.0-10.0)
[2021-08-03 23:35] LABS: BARBITURATES URINE REFLEX NEGATIVE (NEGATIVE); BENZODIAZEPINES URINE REFLEX NEGATIVE (NEGATIVE); CANNABINOIDS URINE REFLEX NEGATIVE (NEGATIVE); COCAINE METABOLITE URINE REFLE NEGATIVE (NEGATIVE); METHADONE URINE REFLEX NEGATIVE (NEGATIVE); OPIATES URINE REFLEX NEGATIVE (NEGATIVE); PHENCYCLIDINE URINE REFLEX NEGATIVE (NEGATIVE)
[2021-08-03] MEDS ORDERED: MORPHINE 4 MG/ML 1ML VIAL/SYRINGE (J2270) IV ONE (23:50)
[2021-08-03 23:51] LABS: AMPHETAMINES URINE REFLEX PENDING CONFIRMATION (NEGATIVE)
[2021-08-04] VITALS (9 sets, daily range): BP systolic 113–131; BP diastolic 63–95
[2021-08-04] MEDS ORDERED: MORPHINE PRES-FREE INJ 10 MG/10 ML VIAL (J2274) As Ordered ONE (05:33)
[2021-08-04] MEDS ORDERED: OXYTOCIN 30 UNITS IN 0.9% NaCl 500ML IV BAG (J2590) As Ordered ONE ×2 (05:34→07:09)
[2021-08-04] MEDS ORDERED: PHENYLephrine 500MCG 5ML (100MCG/ML) SYRINGE As Ordered ONE (05:34)
[2021-08-04] MEDS ORDERED: ePHEDrine SULFATE 25 MG/5 ML(5MG/ML) SYRINGE As Ordered ONE (05:34)
[2021-08-04] MEDS ORDERED: diphenhydrAMINE 50MG/ML VIAL (J1200) IV PRN (05:58)
[2021-08-04] MEDS ORDERED: METOCLOPRAMIDE INJ 10MG/2ML VIAL (J2765 PER 1) IV PRN ×2 (05:58→07:40)
[2021-08-04] MEDS ORDERED: NALOXONE INJ 0.4MG/1ML VIAL (J2310 PER 1MG) IV PRN ×2 (05:58)
[2021-08-04] MEDS ORDERED: ONDANSETRON 4MG/2ML VIAL IV PRN ×3 (05:58→07:40)
[2021-08-04] MEDS ORDERED: NALBUPHINE HCL 10 MG/ML AMP (J2300) IV PRN (05:58)
[2021-08-04] MEDS ORDERED: ONDANSETRON 4MG/2ML VIAL As Ordered ONE ×2 (06:12→09:01)
[2021-08-04] MEDS ORDERED: KETOROLAC 60MG 2ML VIAL As Ordered ONE (06:13)
[2021-08-04] MEDS ORDERED: dexameTHASONE 4 MG/ML 1ML VIAL (J1100 PER 1MG) As Ordered ONE (07:00)
[2021-08-04] MEDS ORDERED: RHOGAM 300 MCG (1500 IU) INJ (J2790) IM SCH (07:10)
[2021-08-04] MEDS ORDERED: PERCOCET 5MG/325MG TAB PO PRN ×2 (07:10→07:40)
[2021-08-04] MEDS ORDERED: SIMETHICONE 80MG CHEW TAB PO PRN (07:10)
[2021-08-04] MEDS ORDERED: MEASLES,MUMPS,RUBELLA VACCINE INJ (MMR-II) (90707) SC SCH (07:10)
[2021-08-04] MEDS ORDERED: LR 1,000 ML IV SCH (07:40)
[2021-08-04] MEDS ORDERED: MORPHINE 10 MG/ML 1ML VIAL (J2270) As Ordered ONE (07:46)
[2021-08-04] MEDS: MORPHINE 2 MG/ML 1ML VIAL (J2270) IV PRN ×2 (07:51→08:18)
[2021-08-04] MEDS ORDERED: KETOROLAC 30 MG/ML 1ML VIAL IV ONE (08:00)
[2021-08-04] MEDS ORDERED: KETOROLAC 30 MG/ML 1ML VIAL As Ordered ONE (08:01)
[2021-08-04] MEDS: DOCUSATE SODIUM 100MG CAPSULE PO SCH ×2 (09:00→21:06)
[2021-08-04] MEDS: PRENATAL VITAMINS CHEWABLE TABLET PO SCH (09:00)
[2021-08-04] MEDS: KETOROLAC 30 MG/ML 1ML VIAL IV SCH ×2 (13:49→21:06)
[2021-08-05 02:00] VITALS: BP 109/58
[2021-08-05] MEDS: KETOROLAC 30 MG/ML 1ML VIAL IV SCH (02:45)
[2021-08-05 06:00] VITALS: BP 112/63
[2021-08-05] MEDS: IBUPROFEN 800 MG TAB PO SCH ×3 (07:44→23:26)
[2021-08-05] MEDS ORDERED: IBUPROFEN 800 MG TAB PO SCH (08:00)
[2021-08-05 09:27] LABS: HEMATOCRIT 31.3 % (36.0-47.0); HEMOGLOBIN 10.2 g/dl (12.0-15.5); MEAN CORPUSCULAR HEMOGLOBIN 31.5 pg (27.0-33.0); MEAN CORPUSCULAR HGB CONC 32.6 g/dl (32.0-36.5); MEAN CORPUSCULAR VOLUME 96.6 fl (80.0-96.0); PLATELET COUNT, AUTOMATED 326 10^3/uL (150-450); RED BLOOD COUNT 3.24 10^6/uL (4.00-5.40); WHITE BLOOD COUNT 8.8 10^3/uL (4.0-10.0)
[2021-08-05] MEDS: DOCUSATE SODIUM 100MG CAPSULE PO SCH ×2 (09:36→20:32)
[2021-08-05] MEDS: PRENATAL VITAMINS CHEWABLE TABLET PO SCH (09:37)
[2021-08-05 10:00] VITALS: BP 118/63
[2021-08-05] MEDS ORDERED: BOOSTRIX/ADACEL VACCINE (DIPHTH/PERTUSS/ACELL/TETANUS) 0.5ML SYR IM ONE (11:00)
[2021-08-05] MEDS ORDERED: INFLUENZA QUADRIVALENT PF VACCINE 0.5ML SYRINGE IM ONE (11:00)
[2021-08-05] MEDS: ACETAMINOPHEN 500 MG TAB PO PRN ×2 (12:28→20:33)
[2021-08-05 14:00] VITALS: BP 109/64
[2021-08-05] MEDS ORDERED: HOME MED LIST COMPLETE! XX SCH (15:35)
[2021-08-05 18:00] VITALS: BP 108/60
[2021-08-05 22:00] VITALS: BP 131/78
[2021-08-06 02:00] VITALS: BP 130/71
[2021-08-06 06:00] VITALS: BP 128/86
[2021-08-06] MEDS: IBUPROFEN 800 MG TAB PO SCH ×2 (06:56→16:01)
[2021-08-06] MEDS ORDERED: INFLUENZA QUADRIVALENT PF VACCINE 0.5ML SYRINGE IM ONE (09:00)
[2021-08-06] MEDS ORDERED: BOOSTRIX/ADACEL VACCINE (DIPHTH/PERTUSS/ACELL/TETANUS) 0.5ML SYR IM ONE (09:00)
[2021-08-06] MEDS: PRENATAL VITAMINS CHEWABLE TABLET PO SCH (09:17)
[2021-08-06] MEDS: DOCUSATE SODIUM 100MG CAPSULE PO SCH ×2 (09:17→21:00)
[2021-08-06 10:00] VITALS: BP 127/75
[2021-08-06] MEDS: ACETAMINOPHEN 500 MG TAB PO PRN (10:28)
[2021-08-06 14:00] VITALS: BP 136/76
[2021-08-06] MEDS: PERCOCET 5MG/325MG TAB PO PRN (18:42)
[2021-08-06 18:46] VITALS: BP 127/82
[2021-08-07] MEDS: IBUPROFEN 800 MG TAB PO SCH ×2 (00:16→07:59)
[2021-08-07] MEDS: PERCOCET 5MG/325MG TAB PO PRN ×2 (05:32→14:21)
[2021-08-07 05:52] VITALS: BP 114/70
[2021-08-07] MEDS: PRENATAL VITAMINS CHEWABLE TABLET PO SCH (07:59)
[2021-08-07] MEDS: DOCUSATE SODIUM 100MG CAPSULE PO SCH (07:59)
[2021-08-07] MEDS ORDERED: BOOSTRIX/ADACEL VACCINE (DIPHTH/PERTUSS/ACELL/TETANUS) 0.5ML SYR IM ONE (09:00)
[2021-08-07] MEDS ORDERED: INFLUENZA QUADRIVALENT PF VACCINE 0.5ML SYRINGE IM ONE (09:00)
[2021-08-07] MEDS ORDERED: CALCIUM CARBONATE 500 MG CHEW U/D PO PRN (09:30)
[2021-08-07] MEDS ORDERED: ACET-683 PO (10:15)
[2021-08-07] MEDS ORDERED: IBUP-1022 PO (10:15)
[2021-08-07] MEDS ORDERED: OXYC-517 PO (10:15)
[2021-08-07] MEDS ORDERED: COLA100C5 PO (10:15)
[2021-08-07 12:08] LABS: Amphetamine Positive (.); Amphetamines Positive (.); GC Amphetamine 1483 ng/mL (Cutoff=500); GC Methamphetam 3924 ng/mL (Cutoff=500); Methamphetamine Positive (.)
== END 2021-08-07 16:40 | disposition home or self-care (01) | DRG 540 ==
LOC: M LDI 18:33 → M OBS 08-04 09:10
PROVIDERS: ADMIT Obstetrics & Gynecology; ATTEND Obstetrics & Gynecology
PROC: 10D00Z1 Extraction of Products of Conception, Low, Open Approach (ICD-10-PCS; principal; 2021-08-04)
DX: O41.03X0 Oligohydramnios, third trimester, not applicable or unspecified (principal); O99.324 Drug use complicating childbirth; O36.5930 Maternal care for other known or suspected poor fetal growth, third trimester, not applicable or unspecified; Z3A.36 36 weeks gestation of pregnancy; O34.211 Maternal care for low transverse scar from previous cesarean delivery; Z91.19 Patient's noncompliance with other medical treatment and regimen; F15.10 Other stimulant abuse, uncomplicated; O99.52 Diseases of the respiratory system complicating childbirth; J45.909 Unspecified asthma, uncomplicated; Z88.2 Allergy status to sulfonamides; Z88.8 Allergy status to other drugs, medicaments and biological substances; Z91.030 Bee allergy status; Z91.048 Other nonmedicinal substance allergy status; Z37.0 Single live birth

== ENCOUNTER 2022-02-26 03:01 | Emergency (ER) | payer MEDICAID, OTHER ==
[~2022-02-26] VITALS: Ht 157.5 cm; Wt 48.9 kg
[2022-02-26 03:01] VITALS: BP 132/89
[~2022-02-26 03:01] MED LIST changes: +OXYC-517 PO
== END 2022-02-26 03:49 | disposition left against medical advice (07) ==
LOC: M ED 03:01
DX: Z53.29 Procedure and treatment not carried out because of patient's decision for other reasons (principal)

== ENCOUNTER 2022-05-19 23:21 | Emergency (ER) | payer OTHER ==
[~2022-05-19] VITALS: Ht 157.5 cm; Wt 56.8 kg
[2022-05-20 00:22] LABS: BASO % 0.6 % (0.0-1.0); EOS # 0.3 10^3/uL (0.0-0.5); EOS % 3.8 % (0.0-3.0); HEMATOCRIT 38.1 % (36.0-47.0); HEMOGLOBIN 11.8 g/dl (12.0-15.5); LYMPH # 2.4 10^3/uL (1.5-5.0); LYMPH % 33.6 % (24.0-44.0); MEAN CORPUSCULAR HEMOGLOBIN 29.1 pg (27.0-33.0); MEAN CORPUSCULAR VOLUME 94.1 fl (80.0-96.0); MONO # 0.6 10^3/uL (0.0-0.8); MONO % 8.3 % (2.0-8.0); NEUTROPHILS # 3.8 10^3/uL (1.5-8.5); NEUTROPHILS % 53.4 % (36.0-66.0); PLATELET COUNT, AUTOMATED 358 10^3/uL (150-450); RED BLOOD COUNT 4.05 10^6/uL (4.00-5.40)
[2022-05-20 01:07] LABS: ALKALINE PHOSPHATASE 74 U/L (46-116); ALT/SGPT 19 U/L (7.0-40); AST/SGOT 17 U/L (<34); BILIRUBIN,DIRECT 0.1 MG/DL (<0.4); BILIRUBIN,TOTAL 0.4 MG/DL (0.3-1.2); BLOOD UREA NITROGEN 24 MG/DL (9-23); CALCIUM LEVEL 9.1 MG/DL (8.5-10.1); CARBON DIOXIDE LEVEL 28 MMOL/L (20-31); CHLORIDE LEVEL 104 MMOL/L (98-107); CREATININE FOR GFR 0.84 MG/DL (0.55-1.30); GLOMERULAR FILTRATION RATE > 60.0 (>60); GLUCOSE, FASTING 89 MG/DL (60-100); POTASSIUM SERUM 4.3 MMOL/L (3.5-5.1); SODIUM LEVEL 140 MMOL/L (136-145); TOTAL PROTEIN 7.3 G/DL (5.7-8.2)
[2022-05-20 01:32] LABS: HCG, SERUM QUALITATIVE NEGATIVE (NEGATIVE)
[2022-05-20 03:04] LABS: CK-MB VALUE MASS < 1.0 NG/ML (<3.6)
[2022-05-20 03:05] LABS: CPK CREATINE PHOSPHOKINASE 66 U/L (34-145); MB/CK RELATIVE INDEX 1.51 (< OR =4)
[2022-05-20 03:20] LABS: LIPASE 55 U/L (12-53)
[2022-05-20 04:20] LABS: CK-MB VALUE MASS < 1.0 NG/ML (<3.6)
[2022-05-20 04:29] LABS: CPK CREATINE PHOSPHOKINASE 63 U/L (34-145); MB/CK RELATIVE INDEX 1.58 (< OR =4)
[2022-05-20] MEDS ORDERED: NS 1,000 ML IV ONE (07:20)
[2022-05-20] MEDS ORDERED: GI COCKTAIL 50ML BTL(HYOSCYAMINE/MAALOX/LIDOCAINE VISCOUS)(1:3:1) PO ONE (07:20)
[2022-05-20] MEDS ORDERED: PANTOPRAZOLE 40MG VIAL IV ONE (07:20)
[2022-05-20] MEDS ORDERED: ISOVUE-370 76% 100ML VIAL As Ordered ONE (07:28)
[2022-05-20] MEDS ORDERED: SUCR1SS PO (09:36)
[2022-05-20] MEDS ORDERED: OMEP40CA4 PO (09:36)
[2022-05-20] MEDS ORDERED: METR-265 PO (10:40)
[2022-05-20 10:43] VITALS: BP 108/71
[2022-05-20 12:50] LABS: GC DNA AMPLIFICATION NEGATIVE (NEGATIVE)
== END 2022-05-20 10:59 | disposition home or self-care (01) ==
LOC: M ED 23:21
DX: K29.70 Gastritis, unspecified, without bleeding (principal); K21.9 Gastro-esophageal reflux disease without esophagitis; Z86.19 Personal history of other infectious and parasitic diseases; J45.909 Unspecified asthma, uncomplicated; Z87.440 Personal history of urinary (tract) infections; E03.9 Hypothyroidism, unspecified; F41.9 Anxiety disorder, unspecified; F32.9 Major depressive disorder, single episode, unspecified; F17.290 Nicotine dependence, other tobacco product, uncomplicated; F19.10 Other psychoactive substance abuse, uncomplicated; F11.10 Opioid abuse, uncomplicated; Z88.2 Allergy status to sulfonamides; Z88.5 Allergy status to narcotic agent; Z91.030 Bee allergy status; Z91.89 Other specified personal risk factors, not elsewhere classified
CPT/HCPCS: 71046; 71275; 74177; 76856; 80048; 80076; 81002; 82550; 82553; 83690; 83880; 84484; 84703; 85025; 87210; 87486; 87581; 87633; 87661; 87798; 87810; 87850; 93005; 93970; 93976; 96361; 96374; 99284; C9113

== ENCOUNTER 2022-09-16 19:32 | Emergency (ER) | payer MEDICAID, OTHER ==
[~2022-09-16 19:32] MED LIST changes: +METR-265 PO; +OMEP40CA4 PO; +SUCR1SS PO
[2022-09-16 20:44] LABS: HEMATOCRIT 40.6 % (36.0-47.0); HEMOGLOBIN 13.3 g/dl (12.0-15.5); MEAN CORPUSCULAR HEMOGLOBIN 29.6 pg (27.0-33.0); MEAN CORPUSCULAR HGB CONC 32.8 g/dl (32.0-36.5); MEAN CORPUSCULAR VOLUME 90.4 fl (80.0-96.0); PLATELET COUNT, AUTOMATED 347 10^3/uL (150-450); RED BLOOD COUNT 4.49 10^6/uL (4.00-5.40); WHITE BLOOD COUNT 4.3 10^3/uL (4.0-10.0)
[2022-09-16 20:55] LABS: BARBITURATES URINE NEGATIVE (NEGATIVE); BENZODIAZEPINES URINE NEGATIVE (NEGATIVE); COCAINE METABOLITE URINE NEGATIVE (NEGATIVE); METHADONE URINE NEGATIVE (NEGATIVE); PHENCYCLIDINE URINE NEGATIVE (NEGATIVE)
[2022-09-16 21:26] LABS: OPIATES URINE NEGATIVE (NEGATIVE)
[2022-09-16 21:28] LABS: AMPHETAMINES LEVEL URINE POSITIVE (NEGATIVE); CANNABINOIDS URINE POSITIVE (NEGATIVE)
[2022-09-16 22:10] LABS: ETHYL ALCOHOL (ETHANOL) 0.006 % (0.000-0.010)
[2022-09-16 22:12] LABS: ACETAMINOPHEN LEVEL < 2.0 UG/ML (10.0-20.0); ALBUMIN 3.9 G/DL (3.2-5.2); ALKALINE PHOSPHATASE 71 U/L (46-116); ALT/SGPT 17 U/L (7.0-40); AST/SGOT 12 U/L (<34); BILIRUBIN,DIRECT 0.2 MG/DL (<0.4); BILIRUBIN,TOTAL 0.4 MG/DL (0.3-1.2); BLOOD UREA NITROGEN 11 MG/DL (9-23); CALCIUM LEVEL 8.6 MG/DL (8.5-10.1); CARBON DIOXIDE LEVEL 26 MMOL/L (20-31); CHLORIDE LEVEL 108 MMOL/L (98-107); CREATININE FOR GFR 0.65 MG/DL (0.55-1.30); GLOMERULAR FILTRATION RATE > 60.0 (>60); GLUCOSE, FASTING 70 MG/DL (60-100); POTASSIUM SERUM 3.8 MMOL/L (3.5-5.1); SALICYLATE LEVEL < 3.0 MG/DL (<30); SODIUM LEVEL 143 MMOL/L (136-145); TOTAL PROTEIN 6.8 G/DL (5.7-8.2)
[2022-09-16 22:14] LABS: THYROID STIMULATING HORMONE 0.578 uIU/ML (0.55-4.78)
[2022-09-16 22:24] LABS: HCG, SERUM QUALITATIVE NEGATIVE (NEGATIVE)
[2022-09-16 22:27] VITALS: BP 134/85
== END 2022-09-16 22:29 | disposition home or self-care (01) ==
LOC: M ED 19:32
DX: R45.88 Nonsuicidal self-harm (principal); F32.A Depression, unspecified; F31.9 Bipolar disorder, unspecified; E03.9 Hypothyroidism, unspecified; Z87.442 Personal history of urinary calculi; Z79.899 Other long term (current) drug therapy; Z88.2 Allergy status to sulfonamides; Z91.030 Bee allergy status; Z88.8 Allergy status to other drugs, medicaments and biological substances

== ENCOUNTER 2022-11-08 11:55 | Emergency (ER) | payer MEDICAID ==
[~2022-11-08] VITALS: Ht 157.5 cm; Wt 56.7 kg
[2022-11-08 12:13] VITALS: BP 102/67
== END 2022-11-08 12:34 | disposition left against medical advice (07) ==
LOC: M ED 11:55 → EDBD 11:55 → M ED 12:34
DX: R10.9 Unspecified abdominal pain (principal); Z53.21 Procedure and treatment not carried out due to patient leaving prior to being seen by health care provider

== ENCOUNTER 2022-11-22 10:04 | Emergency (ER) | payer MEDICAID ==
[~2022-11-22] VITALS: Ht 157.5 cm; Wt 55.9 kg
[2022-11-22 10:45] VITALS: BP 120/75; TEMP 98.5; O2SAT 100
[2022-11-22] MEDS ORDERED: NS 1,000 ML IV ONE (12:15)
== END 2022-11-22 12:30 | disposition left against medical advice (07) ==
LOC: M ED 10:04
DX: Z04.1 Encounter for examination and observation following transport accident (principal); F17.200 Nicotine dependence, unspecified, uncomplicated

== ENCOUNTER 2022-12-02 19:49 | Emergency (ER) | payer MEDICAID ==
[2022-12-02 20:01] VITALS: BP 118/71; TEMP 97; O2SAT 100
== END 2022-12-02 20:53 | disposition left against medical advice (07) ==
LOC: EDBD 19:49 → M ED 19:49
DX: R10.9 Unspecified abdominal pain (principal); Z53.21 Procedure and treatment not carried out due to patient leaving prior to being seen by health care provider

== ENCOUNTER 2022-12-20 09:57 | Emergency (ER) | payer MEDICAID ==
[~2022-12-20] VITALS: Ht 157.5 cm; Wt 55.2 kg
[2022-12-20 10:04] VITALS: BP 114/67; TEMP 98; O2SAT 100
== END 2022-12-20 10:12 | disposition left against medical advice (07) ==
LOC: M ED 09:57
DX: Z53.21 Procedure and treatment not carried out due to patient leaving prior to being seen by health care provider (principal)

== ENCOUNTER 2023-01-20 04:44 | Emergency (ER) | payer MEDICAID ==
[~2023-01-20] VITALS: Ht 157.5 cm; Wt 56.5 kg
[2023-01-20 05:01] VITALS: BP 110/61; TEMP 97.5; O2SAT 100
[2023-01-20 07:19] LABS: HCG, SERUM QUALITATIVE POSITIVE (NEGATIVE)
[2023-01-20 07:22] LABS: BLOOD UREA NITROGEN < 5 MG/DL (9-23); CALCIUM LEVEL 7.9 MG/DL (8.5-10.1); CARBON DIOXIDE LEVEL 21 MMOL/L (20-31); CHLORIDE LEVEL 109 MMOL/L (98-107); CREATININE FOR GFR 0.36 MG/DL (0.55-1.30); GLOMERULAR FILTRATION RATE > 60.0 (>60); GLUCOSE, FASTING 97 MG/DL (60-100); POTASSIUM SERUM 3.5 MMOL/L (3.5-5.1); SODIUM LEVEL 139 MMOL/L (136-145)
[2023-01-20 09:14] LABS: BASO % 0.5 % (0.0-1.0); EOS # 0.1 10^3/uL (0.0-0.5); EOS % 3.3 % (0.0-3.0); HEMATOCRIT 35.9 % (36.0-47.0); HEMOGLOBIN 11.1 g/dl (12.0-15.5); LYMPH # 1.5 10^3/uL (1.5-5.0); LYMPH % 34.1 % (24.0-44.0); MEAN CORPUSCULAR HEMOGLOBIN 30.6 pg (27.0-33.0); MEAN CORPUSCULAR HGB CONC 30.9 g/dl (32.0-36.5); MEAN CORPUSCULAR VOLUME 98.9 fl (80.0-96.0); MONO # 0.3 10^3/uL (0.0-0.8); NEUTROPHILS # 2.4 10^3/uL (1.5-8.5); NEUTROPHILS % 54.9 % (36.0-66.0); PLATELET COUNT, AUTOMATED 254 10^3/uL (150-450); RED BLOOD COUNT 3.63 10^6/uL (4.00-5.40); WHITE BLOOD COUNT 4.3 10^3/uL (4.0-10.0)
== END 2023-01-20 06:58 | disposition left against medical advice (07) ==
LOC: M ED 04:44 → EDBD 04:44 → M ED 06:58
DX: R10.9 Unspecified abdominal pain (principal); Z53.21 Procedure and treatment not carried out due to patient leaving prior to being seen by health care provider

== ENCOUNTER → 2023-03-01 | Outpatient (REF) | payer MEDICAID ==
[2023-03-01 14:05] LABS: GC DNA AMPLIFICATION NEGATIVE (NEGATIVE)
== END ==
LOC: M LAB REF 11:48
PROVIDERS: ATTEND Surgery
DX: A64 Unspecified sexually transmitted disease (principal)

== ENCOUNTER 2023-03-19 20:09 | Outpatient (CLI) | payer MEDICAID ==
[~2023-03-19] VITALS: Ht 157.5 cm; Wt 64.5 kg
[2023-03-19 20:26] VITALS: BP 114/67; O2SAT 98
[2023-03-19] MEDS ORDERED: PRENTAB9 PO (20:29)
[2023-03-19] MEDS ORDERED: HOME MED LIST COMPLETE! XX SCH (20:30)
[2023-03-19 23:28] LABS: GC DNA AMPLIFICATION NEGATIVE (NEGATIVE)
== END 2023-03-19 23:15 | disposition home or self-care (01) ==
LOC: M LDO 20:09
PROVIDERS: ATTEND Obstetrics & Gynecology
DX: O23.42 Unspecified infection of urinary tract in pregnancy, second trimester (principal); N39.0 Urinary tract infection, site not specified; A59.9 Trichomoniasis, unspecified; O34.218 Maternal care for other type scar from previous cesarean delivery; O26.22 Pregnancy care for patient with recurrent pregnancy loss, second trimester; O99.342 Other mental disorders complicating pregnancy, second trimester; F41.8 Other specified anxiety disorders; Z3A.20 20 weeks gestation of pregnancy; O98.312 Other infections with a predominantly sexual mode of transmission complicating pregnancy, second trimester
CPT/HCPCS: 59025; 81001; 87086; 87810; 87850; G0463

== ENCOUNTER 2023-03-22 15:20 | Outpatient (CLI) | payer MEDICAID ==
[~2023-03-22] VITALS: Ht 157.5 cm; Wt 64.3 kg
[2023-03-22 15:39] VITALS: BP 108/63; O2SAT 97
[2023-03-22] MEDS ORDERED: CALC500C15 PO (15:43)
[2023-03-22] MEDS ORDERED: ACET325C5 PO (15:43)
[2023-03-22] MEDS ORDERED: HOME MED LIST COMPLETE! XX SCH (15:45)
[2023-03-22 16:23] LABS: HEMATOCRIT 34.7 % (36.0-47.0); HEMOGLOBIN 11.3 g/dl (12.0-15.5); MEAN CORPUSCULAR HEMOGLOBIN 32.4 pg (27.0-33.0); MEAN CORPUSCULAR HGB CONC 32.6 g/dl (32.0-36.5); MEAN CORPUSCULAR VOLUME 99.4 fl (80.0-96.0); PLATELET COUNT, AUTOMATED 237 10^3/uL (150-450); RED BLOOD COUNT 3.49 10^6/uL (4.00-5.40); WHITE BLOOD COUNT 7.8 10^3/uL (4.0-10.0)
[2023-03-22 17:15] LABS: HIV 1&2 SCREEN NEGATIVE (NEGATIVE)
[2023-03-22 17:46] VITALS: BP 116/71
[2023-03-22] MEDS ORDERED: FIORICET TAB PO ONE (18:50)
[2023-03-22] MEDS ORDERED: GLYCERIN ADULT SUPP PR ONE (18:55)
[2023-03-22 20:02] LABS: HEPATITIS C VIRUS ABY INDEX > 11.00 INDEX (<0.8)
== END 2023-03-22 21:09 | disposition home or self-care (01) ==
LOC: M LDO 15:20
PROVIDERS: ATTEND Advanced Practice Midwife
DX: O98.312 Other infections with a predominantly sexual mode of transmission complicating pregnancy, second trimester (principal); O34.218 Maternal care for other type scar from previous cesarean delivery; O99.322 Drug use complicating pregnancy, second trimester; O32.1XX9 Maternal care for breech presentation, other fetus; O99.612 Diseases of the digestive system complicating pregnancy, second trimester; A59.9 Trichomoniasis, unspecified; F19.11 Other psychoactive substance abuse, in remission; K59.00 Constipation, unspecified; Z87.51 Personal history of pre-term labor; Z3A.22 22 weeks gestation of pregnancy
CPT/HCPCS: 36415; 59025; 76811; 85027; 86762; 86780; 86803; 86850; 86900; 86901; 87340; 87389; 87522; G0463

== ENCOUNTER 2023-04-09 18:10 | Outpatient (CLI) | payer MEDICAID ==
[~2023-04-09] VITALS: Ht 157.5 cm; Wt 66.0 kg
[~2023-04-09 18:10] MED LIST changes: +ACET325C5 PO; +CALC500C15 PO
[2023-04-09 18:28] VITALS: BP 114/73
[2023-04-09] MEDS ORDERED: BENA25CA4 PO (18:35)
[2023-04-09] MEDS ORDERED: MIRA3350 PO (18:35)
[2023-04-09] MEDS ORDERED: COLA100C5 PO (18:35)
[2023-04-09] MEDS ORDERED: HOME MED LIST COMPLETE! XX SCH (18:40)
[2023-04-09 20:22] VITALS: BP 107/78
[2023-04-09 21:12] VITALS: BP 124/75
== END 2023-04-09 22:05 | disposition home or self-care (01) ==
LOC: M LDO 18:10
PROVIDERS: ATTEND Obstetrics & Gynecology
DX: O26.892 Other specified pregnancy related conditions, second trimester (principal); R10.2 Pelvic and perineal pain; Z3A.25 25 weeks gestation of pregnancy
CPT/HCPCS: 59025; 81001; 87086; G0463

== ENCOUNTER 2023-04-30 14:37 | Outpatient (CLI) | payer MEDICAID ==
[~2023-04-30] VITALS: Ht 157.5 cm; Wt 68.2 kg
[~2023-04-30 14:37] MED LIST changes: +BENA25CA4 PO; +MIRA3350 PO
[2023-04-30 14:54] VITALS: BP 120/75
[2023-04-30] MEDS ORDERED: HOME MED LIST COMPLETE! XX SCH (14:55)
[2023-04-30 15:52] LABS: AMPHETAMINES URINE REFLEX NEGATIVE (NEGATIVE); BARBITURATES URINE REFLEX NEGATIVE (NEGATIVE); BENZODIAZEPINES URINE REFLEX NEGATIVE (NEGATIVE); CANNABINOIDS URINE REFLEX NEGATIVE (NEGATIVE); COCAINE METABOLITE URINE REFLE NEGATIVE (NEGATIVE); METHADONE URINE REFLEX NEGATIVE (NEGATIVE); OPIATES URINE REFLEX NEGATIVE (NEGATIVE)
[2023-04-30 15:54] LABS: PHENCYCLIDINE URINE REFLEX NEGATIVE (NEGATIVE)
[2023-04-30 15:57] LABS: HEMATOCRIT 34.2 % (36.0-47.0); HEMOGLOBIN 11.4 g/dl (12.0-15.5); MEAN CORPUSCULAR HEMOGLOBIN 33.1 pg (27.0-33.0); MEAN CORPUSCULAR HGB CONC 33.3 g/dl (32.0-36.5); MEAN CORPUSCULAR VOLUME 99.4 fl (80.0-96.0); PLATELET COUNT, AUTOMATED 259 10^3/uL (150-450); RED BLOOD COUNT 3.44 10^6/uL (4.00-5.40); WHITE BLOOD COUNT 6.6 10^3/uL (4.0-10.0)
[2023-04-30 16:02] VITALS: BP 113/71
[2023-04-30 16:03] LABS: APPEARANCE, URINE HAZY (CLEAR); BACTERIA, URINE AUTO 1+ (NEGATIVE); BILIRUBIN, URINE AUTO NEGATIVE (NEGATIVE); BLOOD, URINE BLOOD NEGATIVE (NEGATIVE); COLOR, URINE STRAW (YELLOW); GLUCOSE, URINE (UA) AUTO NEGATIVE (NEGATIVE); KETONE, URINE AUTO NEGATIVE (NEGATIVE); LEUKOCYTE ESTERASE, URINE AUTO 2+ (NEGATIVE); NITRITE, URINE AUTO NEGATIVE (NEGATIVE); PROTEIN, URINE AUTO NEGATIVE (NEGATIVE); RBC, URINE AUTO 1 /HPF (0-3); SPECIFIC GRAVITY URINE AUTO 1.004 (1.002-1.035); SQUAMOUS EPITHELIAL CELL UR AU 6 /HPF (0-6); UROBILINOGEN, URINE AUTO 0.2 mg/dL (0.0-2.0); WBC, URINE AUTO 4 /HPF (0-3)
[2023-04-30 17:24] LABS: ALBUMIN 3.1 G/DL (3.2-5.2); ALKALINE PHOSPHATASE 65 U/L (46-116); ALT/SGPT 10 U/L (7.0-40); AST/SGOT 15 U/L (<34); BILIRUBIN,TOTAL 0.4 MG/DL (0.3-1.2); BLOOD UREA NITROGEN 9 MG/DL (9-23); CALCIUM LEVEL 8.4 MG/DL (8.5-10.1); CARBON DIOXIDE LEVEL 23 MMOL/L (20-31); CHLORIDE LEVEL 107 MMOL/L (98-107); CREATININE FOR GFR 0.34 MG/DL (0.55-1.30); GLOMERULAR FILTRATION RATE > 60.0 (>60); GLUCOSE, FASTING 76 MG/DL (60-100); POTASSIUM SERUM 4.1 MMOL/L (3.5-5.1); SODIUM LEVEL 139 MMOL/L (136-145); TOTAL PROTEIN 6.6 G/DL (5.7-8.2)
== END 2023-04-30 17:29 ==
LOC: M LDO 14:37
PROVIDERS: ATTEND Obstetrics & Gynecology
DX: O26.893 Other specified pregnancy related conditions, third trimester (principal); R10.30 Lower abdominal pain, unspecified; O26.23 Pregnancy care for patient with recurrent pregnancy loss, third trimester; O99.343 Other mental disorders complicating pregnancy, third trimester; F41.8 Other specified anxiety disorders; O34.219 Maternal care for unspecified type scar from previous cesarean delivery; B18.2 Chronic viral hepatitis C; O99.323 Drug use complicating pregnancy, third trimester; F19.11 Other psychoactive substance abuse, in remission; Z88.2 Allergy status to sulfonamides; Z88.8 Allergy status to other drugs, medicaments and biological substances; Z91.040 Latex allergy status; Z91.030 Bee allergy status; Z91.09 Other allergy status, other than to drugs and biological substances; Z87.59 Personal history of other complications of pregnancy, childbirth and the puerperium; O98.413 Viral hepatitis complicating pregnancy, third trimester; Z3A.28 28 weeks gestation of pregnancy
CPT/HCPCS: 36415; 59025; 76815; 80053; 80307; 81001; 85027; G0463

== ENCOUNTER → 2023-05-09 | Outpatient (CLI) | payer MEDICAID ==
[2023-05-09 19:14] LABS: HEMATOCRIT 35.1 % (36.0-47.0); HEMOGLOBIN 11.8 g/dl (12.0-15.5); MEAN CORPUSCULAR HEMOGLOBIN 33.4 pg (27.0-33.0); MEAN CORPUSCULAR HGB CONC 33.6 g/dl (32.0-36.5); MEAN CORPUSCULAR VOLUME 99.4 fl (80.0-96.0); PLATELET COUNT, AUTOMATED 292 10^3/uL (150-450); RED BLOOD COUNT 3.53 10^6/uL (4.00-5.40); WHITE BLOOD COUNT 6.6 10^3/uL (4.0-10.0)
== END ==
LOC: M PLALAB 14:45
PROVIDERS: ATTEND Advanced Practice Midwife
DX: Z34.82 Encounter for supervision of other normal pregnancy, second trimester (principal)

== ENCOUNTER 2023-05-29 14:32 | Outpatient (CLI) | payer MEDICAID ==
[~2023-05-29] VITALS: Ht 157.5 cm; Wt 71.4 kg
[2023-05-29 14:52] VITALS: BP 108/71
[2023-05-29] MEDS ORDERED: PRENTAB9 PO (15:12)
[2023-05-29] MEDS ORDERED: COLA100C5 PO (15:13)
[2023-05-29] MEDS ORDERED: ACET325C5 PO (15:14)
[2023-05-29] MEDS ORDERED: ONDA4TAB6 PO (15:15)
[2023-05-29] MEDS ORDERED: TUMS500C PO (15:16)
[2023-05-29 16:08] VITALS: BP 126/75
== END 2023-05-29 16:06 | disposition home or self-care (01) ==
LOC: M LDO 14:32
PROVIDERS: ATTEND Advanced Practice Midwife
DX: O47.03 False labor before 37 completed weeks of gestation, third trimester (principal); O26.23 Pregnancy care for patient with recurrent pregnancy loss, third trimester; O99.343 Other mental disorders complicating pregnancy, third trimester; F31.9 Bipolar disorder, unspecified; O34.219 Maternal care for unspecified type scar from previous cesarean delivery; Z3A.32 32 weeks gestation of pregnancy; Z87.59 Personal history of other complications of pregnancy, childbirth and the puerperium
CPT/HCPCS: 59025; G0463

== ENCOUNTER → 2023-06-20 | Outpatient (REF) | payer MEDICAID ==
[~2023-06-20] MED LIST changes: +OMEP-173 PO; +ONDA4TAB6 PO; +TUMS500C PO
== END ==
LOC: M SFHCWAGY 15:21
PROVIDERS: ATTEND Specialist
DX: Z36.85 Encounter for antenatal screening for Streptococcus B (principal)

== ENCOUNTER 2023-07-06 00:30 | Outpatient (CLI) | payer MEDICAID ==
[~2023-07-06] VITALS: Ht 157.5 cm; Wt 74.4 kg
[2023-07-06 00:55] VITALS: BP 121/69
== END 2023-07-06 01:45 | disposition home or self-care (01) ==
LOC: M LDO 00:30
PROVIDERS: ATTEND Advanced Practice Midwife
DX: O47.1 False labor at or after 37 completed weeks of gestation (principal); O34.219 Maternal care for unspecified type scar from previous cesarean delivery; O99.343 Other mental disorders complicating pregnancy, third trimester; O98.413 Viral hepatitis complicating pregnancy, third trimester; O99.323 Drug use complicating pregnancy, third trimester; O99.333 Smoking (tobacco) complicating pregnancy, third trimester; B18.2 Chronic viral hepatitis C; F41.9 Anxiety disorder, unspecified; F31.9 Bipolar disorder, unspecified; F32.A Depression, unspecified; F17.290 Nicotine dependence, other tobacco product, uncomplicated; F19.11 Other psychoactive substance abuse, in remission; Z87.59 Personal history of other complications of pregnancy, childbirth and the puerperium; Z3A.38 38 weeks gestation of pregnancy
CPT/HCPCS: 59025; G0463

== ENCOUNTER 2023-07-09 22:01 | Inpatient (IN) | payer MEDICAID ==
[~2023-07-09] VITALS: Ht 157.5 cm; Wt 75.6 kg
[2023-07-09 22:27] VITALS: BP 99/73
[2023-07-09] MEDS ORDERED: LR 1,000 ML IV ONE (22:30)
[2023-07-09 23:52] LABS: APPEARANCE, URINE CLEAR (CLEAR); BACTERIA, URINE AUTO NEGATIVE (NEGATIVE); BILIRUBIN, URINE AUTO NEGATIVE (NEGATIVE); BLOOD, URINE BLOOD NEGATIVE (NEGATIVE); COLOR, URINE YELLOW (YELLOW); GLUCOSE, URINE (UA) AUTO NEGATIVE (NEGATIVE); KETONE, URINE AUTO NEGATIVE (NEGATIVE); LEUKOCYTE ESTERASE, URINE AUTO TRACE (NEGATIVE); MUCUS, URINE SMALL (NEGATIVE); NITRITE, URINE AUTO NEGATIVE (NEGATIVE); PROTEIN, URINE AUTO NEGATIVE (NEGATIVE); RBC, URINE AUTO 1 /HPF (0-3); SPECIFIC GRAVITY URINE AUTO 1.013 (1.002-1.035); SQUAMOUS EPITHELIAL CELL UR AU 0 /HPF (0-6); UROBILINOGEN, URINE AUTO 0.2 mg/dL (0.0-2.0); WBC, URINE AUTO 2 /HPF (0-3)
[2023-07-09 23:58] LABS: HEMATOCRIT 35.8 % (36.0-47.0); HEMOGLOBIN 12.3 g/dl (12.0-15.5); MEAN CORPUSCULAR HEMOGLOBIN 33.2 pg (27.0-33.0); MEAN CORPUSCULAR HGB CONC 34.4 g/dl (32.0-36.5); MEAN CORPUSCULAR VOLUME 96.8 fl (80.0-96.0); PLATELET COUNT, AUTOMATED 301 10^3/uL (150-450); WHITE BLOOD COUNT 8.5 10^3/uL (4.0-10.0)
[2023-07-10 00:12] LABS: AMPHETAMINES URINE REFLEX NEGATIVE (NEGATIVE); BARBITURATES URINE REFLEX NEGATIVE (NEGATIVE); BENZODIAZEPINES URINE REFLEX NEGATIVE (NEGATIVE); COCAINE METABOLITE URINE REFLE NEGATIVE (NEGATIVE); METHADONE URINE REFLEX NEGATIVE (NEGATIVE); OPIATES URINE REFLEX NEGATIVE (NEGATIVE); PHENCYCLIDINE URINE REFLEX NEGATIVE (NEGATIVE)
[2023-07-10 00:13] LABS: CANNABINOIDS URINE REFLEX NEGATIVE (NEGATIVE)
[2023-07-10] MEDS ORDERED: diphenhydrAMINE 50MG CAP PO STA (01:28)
[2023-07-10] MEDS ORDERED: ACETAMINOPHEN 500 MG TAB PO ONE (01:30)
[2023-07-10] MEDS ORDERED: METHYLERGONOVINE MALEATE 0.2MG/ML 1ML VIAL IM PRN (01:50)
[2023-07-10] MEDS ORDERED: ceFAZolin SOD 2 GM in IV 1 EA IV ONE (01:50)
[2023-07-10] MEDS ORDERED: OXYTOCIN DRIP 30 UNITS in IV 1 EA IV PRN ×4 (01:50)
[2023-07-10] MEDS ORDERED: CARBOPROST TROMETHAMINE 250 MCG/ML AMP IM PRN (01:50)
[2023-07-10] MEDS ORDERED: TRANEXAMIC ACID INJection 1,000 MG in NS 100 ML IV PRN (01:50)
[2023-07-10] MEDS ORDERED: BICITRA 30ML SOLN UDC PO ONE ×2 (01:50→18:15)
[2023-07-10] MEDS: LR 1,000 ML IV SCH ×4 (07:27→18:43)
[2023-07-10 08:22] VITALS: BP 105/70
[2023-07-10 12:48] VITALS: BP 97/64
[2023-07-10] MEDS ORDERED: BICITRA 30ML SOLN UDC As Ordered ONE (15:31)
[2023-07-10] MEDS ORDERED: ceFAZolin 2 GM/D5W 50 ML IV BAG As Ordered ONE (15:31)
[2023-07-10] MEDS ORDERED: OXYTOCIN INJ 10UNITS/ML 1ML VIAL As Ordered ONE (16:35)
[2023-07-10] MEDS ORDERED: ePHEDrine SULFATE 25 MG/5 ML(5MG/ML) SYRINGE As Ordered ONE (16:35)
[2023-07-10] MEDS ORDERED: PHENYLephrine 500MCG 5ML (100MCG/ML) SYRINGE As Ordered ONE (16:35)
[2023-07-10] MEDS ORDERED: fentaNYL 100 MCG/2 ML INJECTION As Ordered ONE (16:35)
[2023-07-10] MEDS ORDERED: MORPHINE PRES-FREE INJ 10 MG/10 ML VIAL As Ordered ONE (16:35)
[2023-07-10] MEDS ORDERED: GLYCOPYRROLATE INJ 0.2 MG/ML 2 ML VIAL As Ordered ONE (16:35)
[2023-07-10] MEDS ORDERED: MORPHINE 4 MG/ML 1ML VIAL IV PRN (17:50)
[2023-07-10] MEDS ORDERED: OXYTOCIN DRIP 30 UNITS in IV 1 EA IV SCH (17:50)
[2023-07-10] MEDS ORDERED: RHOGAM 300MCG (1500IU) INJ IM SCH (17:50)
[2023-07-10] MEDS ORDERED: ACETAMINOPHEN 500 MG TAB PO PRN (17:50)
[2023-07-10] MEDS ORDERED: ANUSOL HC CREAM 30GM TOP PRN (17:50)
[2023-07-10] MEDS ORDERED: PERCOCET 5MG/325MG TAB PO PRN (17:50)
[2023-07-10] MEDS ORDERED: SIMETHICONE 80MG CHEW TAB PO PRN (17:50)
[2023-07-10] MEDS ORDERED: IBUP80TA PO (17:52)
[2023-07-10] MEDS ORDERED: COLA100C5 PO (17:52)
[2023-07-10] MEDS ORDERED: PERCOCET PO (17:52)
[2023-07-10] MEDS ORDERED: KETOROLAC 30 MG/ML 1ML VIAL As Ordered ONE (17:58)
[2023-07-10] MEDS ORDERED: OXYTOCIN 30UNITS IN 0.9% NaCl 500ML IV BAG As Ordered ONE (17:58)
[2023-07-10] MEDS: KETOROLAC 30 MG/ML 1ML VIAL IV SCH (18:03)
[2023-07-10] MEDS ORDERED: ONDANSETRON 4MG 2ML VIAL As Ordered ONE (18:14)
[2023-07-10] MEDS ORDERED: **NOTE PATIENT COMMENT** MISC XX SCH (18:15)
[2023-07-10] MEDS ORDERED: NALOXONE INJ 0.4MG/1ML VIAL IV PRN ×2 (18:15)
[2023-07-10] MEDS ORDERED: diphenhydrAMINE 50MG/ML VIAL IV PRN (18:15)
[2023-07-10] MEDS ORDERED: MEPERIDINE 25 MG/ML 1ML VIAL IV PRN (18:15)
[2023-07-10] MEDS ORDERED: NALBUPHINE HCL 1MG/0.1ML (100MG/10ML) MDV IV PRN (18:15)
[2023-07-10] MEDS: SLF 3 ML SYR IV SCH (18:15)
[2023-07-10] MEDS ORDERED: METOCLOPRAMIDE INJ 10MG/2ML VIAL IV PRN (18:15)
[2023-07-10] MEDS ORDERED: ONDANSETRON 4MG 2ML VIAL IV PRN (18:15)
[2023-07-10] MEDS ORDERED: LR 1,000 ML IV SCH (18:15)
[2023-07-10 18:35] VITALS: TEMP 97.1
[2023-07-10 19:15] VITALS: BP 111/58; O2SAT 98
[2023-07-10 19:45] VITALS: BP 102/56; O2SAT 99
[2023-07-10 20:15] VITALS: BP 91/55; O2SAT 99
[2023-07-10] MEDS: DOCUSATE SODIUM 100MG CAPSULE PO SCH (21:19)
[2023-07-11] MEDS: KETOROLAC 30 MG/ML 1ML VIAL IV SCH ×3 (00:10→12:27)
[2023-07-11] MEDS: LR 1,000 ML IV SCH ×2 (01:50)
[2023-07-11] MEDS: SLF 3 ML SYR IV SCH ×2 (02:15→10:15)
[2023-07-11 06:00] VITALS: BP 97/49; O2SAT 98
[2023-07-11 06:43] LABS: MEAN CORPUSCULAR HEMOGLOBIN 33.1 pg (27.0-33.0); MEAN CORPUSCULAR HGB CONC 32.8 g/dl (32.0-36.5); MEAN CORPUSCULAR VOLUME 100.7 fl (80.0-96.0); PLATELET COUNT, AUTOMATED 194 10^3/uL (150-450); RED BLOOD COUNT 2.72 10^6/uL (4.00-5.40); WHITE BLOOD COUNT 6.4 10^3/uL (4.0-10.0)
[2023-07-11 06:49] LABS: HEMATOCRIT 27.4 % (36.0-47.0)
[2023-07-11] MEDS: DOCUSATE SODIUM 100MG CAPSULE PO SCH ×2 (07:59→20:06)
[2023-07-11] MEDS: PRENATAL VITAMINS CHEWABLE TABLET PO SCH (07:59)
[2023-07-11 10:00] VITALS: BP 121/66; O2SAT 98
[2023-07-11 18:00] VITALS: BP 94/50; O2SAT 98
[2023-07-11] MEDS: PERCOCET 5MG/325MG TAB PO PRN (18:17)
[2023-07-11] MEDS: IBUPROFEN 800 MG TAB PO SCH (20:06)
[2023-07-11 22:00] VITALS: BP 105/59
[2023-07-12 02:00] VITALS: BP 103/55
[2023-07-12] MEDS: IBUPROFEN 800 MG TAB PO SCH ×2 (04:06→12:20)
[2023-07-12] MEDS: PERCOCET 5MG/325MG TAB PO PRN (05:53)
[2023-07-12 05:55] VITALS: BP 106/60
[2023-07-12] MEDS: DOCUSATE SODIUM 100MG CAPSULE PO SCH (08:43)
[2023-07-12] MEDS: PRENATAL VITAMINS CHEWABLE TABLET PO SCH ×2 (08:43→08:45)
[2023-07-12] MEDS ORDERED: MEASLES,MUMPS,RUBELLA VACCINE INJ (MMR-II) SC.IMMUN ONE (09:00)
== END 2023-07-12 13:50 | disposition home or self-care (01) | DRG 540 ==
LOC: M LDO 22:01 → M LDI 07-10 01:48 → M OBS 07-10 19:15
PROVIDERS: ADMIT Obstetrics & Gynecology; ATTEND Obstetrics & Gynecology
PROC: 10D00Z1 Extraction of Products of Conception, Low, Open Approach (ICD-10-PCS; principal; 2023-07-10 16:29)
DX: O34.211 Maternal care for low transverse scar from previous cesarean delivery (principal); F17.290 Nicotine dependence, other tobacco product, uncomplicated; Z3A.38 38 weeks gestation of pregnancy; Z79.899 Other long term (current) drug therapy; Z88.2 Allergy status to sulfonamides; Z88.5 Allergy status to narcotic agent; Z91.030 Bee allergy status; Z91.040 Latex allergy status; Z91.048 Other nonmedicinal substance allergy status; O99.334 Smoking (tobacco) complicating childbirth; Z37.0 Single live birth

== ENCOUNTER 2023-08-08 20:41 | Emergency (ER) | payer MEDICAID ==
[~2023-08-08] VITALS: Ht 157.5 cm; Wt 61.1 kg
[2023-08-08 20:48] VITALS: BP 137/87; TEMP 98.4; O2SAT 95
== END 2023-08-08 22:26 | disposition left against medical advice (07) ==
LOC: M ED 20:41
DX: Z53.21 Procedure and treatment not carried out due to patient leaving prior to being seen by health care provider (principal)

== ENCOUNTER 2023-09-27 16:08 | Emergency (ER) | payer MEDICAID ==
[~2023-09-27] VITALS: Ht 157.5 cm; Wt 57.9 kg
[2023-09-27 16:22] VITALS: BP 143/96; TEMP 97.5; O2SAT 96
== END 2023-09-27 18:01 | disposition left against medical advice (07) ==
LOC: M ED 16:08 → EDBD 16:08 → M ED 18:01
DX: Z53.21 Procedure and treatment not carried out due to patient leaving prior to being seen by health care provider (principal)

== ENCOUNTER 2023-10-22 22:18 | Emergency (ER) | payer MEDICAID ==
[~2023-10-22] VITALS: Ht 162.6 cm; Wt 68.0 kg
[2023-10-22 23:13] LABS: HEMATOCRIT 35.7 % (36.0-47.0); HEMOGLOBIN 11.9 g/dl (12.0-15.5); MEAN CORPUSCULAR HEMOGLOBIN 30.2 pg (27.0-33.0); MEAN CORPUSCULAR HGB CONC 33.3 g/dl (32.0-36.5); MEAN CORPUSCULAR VOLUME 90.6 fl (80.0-96.0); PLATELET COUNT, AUTOMATED 354 10^3/uL (150-450); RED BLOOD COUNT 3.94 10^6/uL (4.00-5.40); WHITE BLOOD COUNT 4.6 10^3/uL (4.0-10.0)
[2023-10-22 23:27] LABS: ETHYL ALCOHOL (ETHANOL) < 0.003 % (0.000-0.010)
[2023-10-22 23:29] LABS: ALBUMIN 3.8 G/DL (3.2-5.2); ALKALINE PHOSPHATASE 70 U/L (46-116); ALT/SGPT 18 U/L (7.0-40); AST/SGOT 20 U/L (<34); BILIRUBIN,DIRECT 0.2 MG/DL (<0.4); BILIRUBIN,TOTAL 0.6 MG/DL (0.3-1.2); BLOOD UREA NITROGEN 13 MG/DL (9-23); CALCIUM LEVEL 9.3 MG/DL (8.5-10.1); CARBON DIOXIDE LEVEL 25 MMOL/L (20-31); CHLORIDE LEVEL 108 MMOL/L (98-107); CREATININE FOR GFR 0.72 MG/DL (0.55-1.30); GLOMERULAR FILTRATION RATE > 60.0 (>60); GLUCOSE, FASTING 96 MG/DL (60-100); POTASSIUM SERUM 3.8 MMOL/L (3.5-5.1); SALICYLATE LEVEL < 3.0 MG/DL (<30); SODIUM LEVEL 141 MMOL/L (136-145); TOTAL PROTEIN 6.7 G/DL (5.7-8.2)
[2023-10-22] MEDS ORDERED: MED REC IN PROGRESS XX SCH (23:30)
[2023-10-22 23:31] LABS: THYROID STIMULATING HORMONE 0.088 uIU/ML (0.55-4.78)
[2023-10-23 00:01] LABS: HCG, SERUM QUALITATIVE NEGATIVE (NEGATIVE)
[2023-10-23] MEDS ORDERED: XANA0.5T PO (01:09)
[2023-10-23] MEDS ORDERED: IBUP1TAB7 PO (01:09)
[2023-10-23] MEDS ORDERED: BENA25CA4 PO (01:09)
[2023-10-23] MEDS ORDERED: PERCOCET PO (01:09)
[2023-10-23] MEDS ORDERED: HOME MED LIST COMPLETE! XX SCH (01:15)
[2023-10-23 06:44] LABS: BARBITURATES URINE NEGATIVE (NEGATIVE); BENZODIAZEPINES URINE NEGATIVE (NEGATIVE); COCAINE METABOLITE URINE NEGATIVE (NEGATIVE); METHADONE URINE NEGATIVE (NEGATIVE); OPIATES URINE NEGATIVE (NEGATIVE); PHENCYCLIDINE URINE NEGATIVE (NEGATIVE)
[2023-10-23 06:58] LABS: AMPHETAMINES LEVEL URINE POSITIVE (NEGATIVE); CANNABINOIDS URINE POSITIVE (NEGATIVE)
[2023-10-23 16:13] VITALS: BP 127/78; TEMP 97.5; O2SAT 99
== END 2023-10-23 16:16 | disposition home or self-care (01) ==
LOC: M ED 22:18
DX: F32.A Depression, unspecified (principal); Z91.52 Personal history of nonsuicidal self-harm; F43.10 Post-traumatic stress disorder, unspecified; F41.9 Anxiety disorder, unspecified; F31.9 Bipolar disorder, unspecified; Z86.19 Personal history of other infectious and parasitic diseases; Z87.59 Personal history of other complications of pregnancy, childbirth and the puerperium; F19.10 Other psychoactive substance abuse, uncomplicated; F17.200 Nicotine dependence, unspecified, uncomplicated; Z79.899 Other long term (current) drug therapy; Z88.2 Allergy status to sulfonamides; Z88.5 Allergy status to narcotic agent; Z91.89 Other specified personal risk factors, not elsewhere classified; Z91.030 Bee allergy status

== ENCOUNTER 2023-11-07 00:13 | Outpatient (CLI) | payer MEDICAID ==
[~2023-11-07 00:13] MED LIST changes: +IBUP1TAB7 PO
[2023-11-07] MEDS ORDERED: BUPR1FIL37 PO (01:03)
== END 2023-11-07 00:26 | disposition home or self-care (01) ==
LOC: M LDO 00:13
PROVIDERS: ATTEND Advanced Practice Midwife
DX: Z53.21 Procedure and treatment not carried out due to patient leaving prior to being seen by health care provider (principal)

== ENCOUNTER 2023-11-07 00:34 | Emergency (ER) | payer MEDICAID ==
[~2023-11-07] VITALS: Ht 157.5 cm; Wt 54.5 kg
[2023-11-07 00:35] VITALS: BP 127/80; TEMP 97.5; O2SAT 100
[2023-11-07] MEDS ORDERED: BUPR1FIL37 PO (01:03)
== END 2023-11-07 02:43 | disposition left against medical advice (07) ==
LOC: M ED 00:34
DX: Z53.21 Procedure and treatment not carried out due to patient leaving prior to being seen by health care provider (principal)

== ENCOUNTER 2024-04-17 04:37 | Emergency (ER) | payer MEDICAID ==
[~2024-04-17] VITALS: Ht 157.5 cm; Wt 54.9 kg
[~2024-04-17 04:37] MED LIST changes: +BUPR1FIL37 PO; +ONDA-282 PO; -ONDA4TAB6 PO
[2024-04-17 04:51] VITALS: BP 124/84; TEMP 98; O2SAT 99
[2024-04-17 05:23] LABS: BASO % 0.3 % (0.0-1.0); EOS # 0.2 10^3/uL (0.0-0.5); EOS % 3.2 % (0.0-3.0); HEMATOCRIT 42.7 % (36.0-47.0); HEMOGLOBIN 14.1 g/dl (12.0-15.5); LYMPH # 1.6 10^3/uL (1.5-5.0); LYMPH % 26.4 % (24.0-44.0); MEAN CORPUSCULAR HEMOGLOBIN 30.5 pg (27.0-33.0); MEAN CORPUSCULAR VOLUME 92.2 fl (80.0-96.0); MONO # 0.5 10^3/uL (0.0-0.8); MONO % 8.3 % (2.0-8.0); NEUTROPHILS # 3.7 10^3/uL (1.5-8.5); NEUTROPHILS % 61.5 % (36.0-66.0); PLATELET COUNT, AUTOMATED 343 10^3/uL (150-450); RED BLOOD COUNT 4.63 10^6/uL (4.00-5.40)
== END 2024-04-17 06:45 | disposition left against medical advice (07) ==
LOC: M ED 04:37
DX: Z53.21 Procedure and treatment not carried out due to patient leaving prior to being seen by health care provider (principal)

== ENCOUNTER 2025-06-04 08:45 | Emergency (ER) | payer MEDICAID, SELFPAY ==
[~2025-06-04] VITALS: Ht 157.5 cm; Wt 53.7 kg
[~2025-06-04 08:45] MED LIST changes: +ACYC200C10 PO; -ACYC200C8 PO; -DIPH50CA PO; +DIPH50CA31 PO; -IBUP-1022 PO; +IBUP600T42 PO
[2025-06-04 11:36] LABS: BASO # 0.0 10^3/uL (0.0-0.2); BASO % 0.6 % (0.0-1.0); EOS # 0.2 10^3/uL (0.0-0.5); EOS % 4.4 % (0.0-3.0); LYMPH # 1.7 10^3/uL (1.5-5.0); LYMPH % 36.3 % (24.0-44.0); MONO # 0.3 10^3/uL (0.0-0.8); MONO % 6.8 % (2.0-8.0); NEUTROPHILS # 2.5 10^3/uL (1.5-8.5); NEUTROPHILS % 51.7 % (36.0-66.0); PLATELET COUNT, AUTOMATED 318 10^3/uL (150-450)
[2025-06-04 12:11] LABS: CPK CREATINE PHOSPHOKINASE 65 U/L (34-145)
[2025-06-04 12:12] LABS: ALT/SGPT 12 U/L (7.0-40); AST/SGOT 16 U/L (<34); CALCIUM LEVEL 9.1 MG/DL (8.5-10.1); CARBON DIOXIDE LEVEL 28 MMOL/L (20-31); CHLORIDE LEVEL 102 MMOL/L (98-107); CK-MB VALUE MASS < 1.0 NG/ML (<3.6); CREATININE FOR GFR 0.60 MG/DL (0.55-1.30); GLOMERULAR FILTRATION RATE > 90.0 (>60); POTASSIUM SERUM 3.8 MMOL/L (3.5-5.1); SODIUM LEVEL 140 MMOL/L (136-145)
[2025-06-04 12:41] LABS: HCG, SERUM QUALITATIVE NEGATIVE (NEGATIVE)
[2025-06-04 14:45] VITALS: BP 111/56; TEMP 98.5; O2SAT 99
== END 2025-06-04 15:32 | disposition home or self-care (01) ==
LOC: M ED 08:45 → MERGE 08:45 → EDBD 08:45 → M ED 15:32
DX: O26.892 Other specified pregnancy related conditions, second trimester (principal); R07.9 Chest pain, unspecified; D64.9 Anemia, unspecified; G43.909 Migraine, unspecified, not intractable, without status migrainosus; Z3A.14 14 weeks gestation of pregnancy; F17.200 Nicotine dependence, unspecified, uncomplicated; F12.10 Cannabis abuse, uncomplicated; Z91.030 Bee allergy status; Z91.09 Other allergy status, other than to drugs and biological substances